=== PATIENT | male | born 1945 | race Caucasian/White ===

== ENCOUNTER 2016-08-24 02:11 | Inpatient (IN) | payer MEDICARE ==
--- NOTE | ~2016-08-24 | CR7 ---
[facility] A Service of [facility] & [facility] RADIOLOGY TEXT RESULTS PATIENT: KINA LAUGHLIN LOCATION: [address] : [birth year] UNIT #: [id number] AGE: [address]: Rolando Dawkins MD SEX: M ORDER DR: [id number] [facility] [address] [facility]. [place], [place] [address] [id number] I MR#: [id number] Acc #: [id number] NAME: KINA LAUGHLIN : 1945 SEX: M STUDY DATE/TIME: 09/17/2016 5:42 UNIT: [facility] ROOM: [facility] STUDY DESCRIPTION: CR Abdomen Single AP View Attending Physician: Rolando Dawkins M.D. Ordering Physician: Rolando Dawkins M.D. Primary Care Physician: Primary Care Physician No MEDICAL IMAGING REPORT This report is preliminary unless electronic signature is present EXAM Portable abdomen INDICATIONS Dobbhoff tube placement. IMPRESSION This portable view of the abdomen shows the tip of the Dobbhoff tube is below the left hemidiaphragm and is therefore in the stomach. This film was labeled 05:42 a.m. On the chest x-ray labeled 5:41 a.m. the tube was abnormally positioned with a bend in the distal tube and the tip was in the distal esophagus but on this image it has flipped itself down into the stomach. Dictated by... Bridger Carter M.D. THIS IS AN ELECTRONICALLY VERIFIED REPORT Bridger Carter M.D. at 09/17/2016 3:54 PM LORA/michael TD: 09/17/2016 13:19 JOB #: [id number] MEDICAL IMAGING REPORT Page 1 of 1 COPY
--- NOTE | ~2016-08-24 | CR72 ---
[facility] A Service of [facility] & [facility] RADIOLOGY TEXT RESULTS PATIENT: KINA LAUGHLIN LOCATION: [facility] 312-01 : [birth year] UNIT #: [id number] AGE: [address]: Rolando Dawkins MD SEX: M ORDER DR: [id number] [facility] [address] [facility]. [place], [place] [address] [id number] I MR#: [id number] Acc #: [id number] NAME: KINA LAUGHLIN : 1945 SEX: M STUDY DATE/TIME: 08/27/2016 5:51 UNIT: A U ROOM: [facility] STUDY DESCRIPTION: CR Chest Single View Portable Attending Physician: Rolando Dawkins M.D. Ordering Physician: Rolando Dawkins M.D. Primary Care Physician: Primary Care Physician No MEDICAL IMAGING REPORT This report is preliminary unless electronic signature is present EXAM Portable chest HISTORY Followup right sided pneumothorax and chest tube, shortness of air. COMPARISON 08/26/2016 FINDINGS Single large bore chest tube directed towards the right lung apex. Continued right-sided pneumothorax with predominately subpulmonic and lower lung pneumothorax not significantly changed from earlier study. Continued subcutaneous emphysema which may be increased from the 08/26 study. The left lung remains clear. Heart and mediastinum unremarkable. Dictated by... Lucius Mcmanus M.D. THIS IS AN ELECTRONICALLY VERIFIED REPORT Lucius Mcmanus M.D. at 08/27/2016 3:31 PM Thomas TD: 08/27/2016 08:12 JOB #: [id number] MEDICAL IMAGING REPORT Page 1 of 1 COPY
--- NOTE | ~2016-08-24 | CR72 ---
[facility] A Service of [facility] & [facility] RADIOLOGY TEXT RESULTS PATIENT: KINA LAUGHLIN LOCATION: [address]14 : [birth year] UNIT #: [id number] AGE: [address]: Rolando Dawkins MD SEX: M ORDER DR: [id number] [facility] [address] [facility]. [place], [place] [address] [id number] I MR#: [id number] Acc #: [id number] NAME: KINA LAUGHLIN : 1945 SEX: M STUDY DATE/TIME: 09/11/2016 15:21 UNIT: [facility] ROOM: [facility] STUDY DESCRIPTION: CR Chest Single View Portable Attending Physician: Rolando Dawkins M.D. Ordering Physician: Raymundo Chaudhry M.D. Primary Care Physician: No Primary Care Physician MEDICAL IMAGING REPORT This report is preliminary unless electronic signature is present EXAM Portable chest INDICATIONS Chest tube insertion pneumothorax Compared with earlier today. FINDINGS Interval insertion of a second right-sided chest tube. The right pneumothorax is now significantly smaller with very minimal apical and basilar components. There has been no other change. IMPRESSION Insertion of a second right-sided chest tube with significant interval decrease in size of right-sided pneumothorax. Dictated by... Nael Mcmanus M.D. THIS IS AN ELECTRONICALLY VERIFIED REPORT Nael Mcmanus M.D. at 09/12/2016 7:15 AM CHARMAINE/hardik TD: 09/11/2016 22:54 JOB #: [id number] MEDICAL IMAGING REPORT Page 1 of 1 COPY
--- NOTE | ~2016-08-24 | CR71 ---
[facility] A Service of [facility] RADIOLOGY TEXT RESULTS PATIENT: KINA LAUGHLIN LOCATION: [address]14 : [birth year] UNIT #: [id number] AGE: [address]: Rolando Dawkins MD SEX: M ORDER DR: [id number] [facility] [address] [facility]. [place], [place] [address] [id number] I MR#: [id number] Acc #: [id number] NAME: KINA LAUGHLIN : 1945 SEX: M STUDY DATE/TIME: 09/17/2016 5:41 UNIT: [facility] ROOM: [facility] STUDY DESCRIPTION: CR Chest Single View Attending Physician: Rolando Dawkins M.D. Ordering Physician: Bryant Wyatt M.D. Primary Care Physician: Primary Care Physician No MEDICAL IMAGING REPORT This report is preliminary unless electronic signature is present EXAM Portable chest INDICATION Follow up chest tube and pneumothorax. FINDINGS Today's portable view of the chest again shows right-sided chest tube with a pneumothorax surrounding right lung and causing volume loss of the right lung. The appearance is unchanged from the prior study. The pneumothorax appears to have a medial component as well as a basilar component. There are actually 2 chest tubes present. The left lung is clear. The heart size is normal. The Dobbhoff tube is bent back upon itself at the GE juncture. IMPRESSION 1. No change in 2 right chest tubes. There is still a right-sided pneumothorax that appears to completely surround the right lung which is decreased in volume. It is unchanged from yesterday's study. 2. The Dobbhoff tube is not in good position. It is bent back upon itself at about the GE juncture. The tip probably lies in the distal esophagus. Dictated by... Bridger Carter M.D. THIS IS AN ELECTRONICALLY VERIFIED REPORT Bridger Carter M.D. at 09/17/2016 3:54 PM FEL/mjs [facility] A Service of [facility] RADIOLOGY TEXT RESULTS PATIENT: KINA LAUGHLIN LOCATION: [facility]3-14 : [birth year] UNIT #: [id number] AGE: [address]: Rolando Dawkins MD SEX: M ORDER DR: TD: 09/17/2016 13:27 JOB #: [id number] MEDICAL IMAGING REPORT Page 1 of 1 COPY
--- NOTE | ~2016-08-24 | FU ---
[facility] Nutrition Therapy DATE: 09/04/16 Patient: KINA LAUGHLIN Physician: JOSH Address: [address] Room/Bed: [address], Zip: [place] [address] Admit Date: 08/24/16 Date of : [birth year] Height: 5 7 Weight: 144 65.5 NUTRITION MONITORING/FOLLOW-UP: Reason: Nutrition follow up Anthropometrics: Wt 09/04: 65.5 kg Labs: Gluc 142 BUN 25 Ca++ 8.3 Meds: Pepcid, solu-medrol I&O's: , last BM 09/04 (per RN and pt report) Skin: no changes noted Edema: none noted Estimated Nutrition Needs: [id number] kcals (28-32 kcals/kg adm wt) 69-86 grams protein (1.2-1.5 grams/kg adm wt) Assessment: Chart reviewed, events noted. Pt remains in the ICU and self-extubated yesterday per RN report. Pt continues to receive enteral nutrition with Jevity 1.5 @ 40 mL/hr + 30 mL Prostat daily. Pt had CAT OPERATOR evaluation this AM. RD spoke with CAT OPERATOR who recommended mechanical soft/ NDD2 diet with thin liquids. CAT OPERATOR does not expect the pt to consume adequate nutrition PO due to respiratory status and lack of appetite. RD spoke with the pt and his family members at bedside. Pt is agreeable to Ensure chocolate for supplemental nutrition, as family reports that he has consumed Boost in the past. RD informed RN of the pt's supplement needs, will order once advances diet. Sitter in room and RN report that the pt did have a BM this AM, which was his first BM since 08/22. Please see updated nutrition Dx. Dx: 1) Inadequate oral intake RT clinical condition AEB NPO, CAT OPERATOR evaluation- ACTIVE 2) Altered GI function RT clinical condition AEB no BM x 9 days, abdominal distension- RESOLVED (BM TODAY) Intervention: 1. CAT OPERATOR 2. Advance diet as tolerated 3. Continue EN until oral intake increases to 50% of meals Monitoring, Evaluation and Goals: [facility] Nutrition Therapy DATE: 09/04/16 Patient: KINA LAUGHLIN Physician: JOSH Address: [address] Room/Bed: [address], Zip: [place] [address] Admit Date: 08/24/16 Date of : [birth year] Height: 5 7 Weight: 144 65.5 1. EN to provide >80% goal volume x 24 hrs- MET 2. Lytes WNL- MET 3. Promote regular BMs- IN PROGRESS 4. Maintain weight status- IN PROGRESS 5. Advance diet per CAT OPERATOR recs- NEW 6. Consume and tolerate >50% of meals- NEW Recommendations: 1. Since the pt is no longer receiving Propofol, increase Jevity 1.5 to goal of 50 mL/hr and discontinue Prostat. Jevity 1.5 @ 50 mL/hr will provide: 1800 kcals/ 77 grams protein/ 912 mL free H20 2. Advance diet per CAT OPERATOR recommendations + Ensure chocolate BID for supplemental nutrition. 3. Once the pt is consuming >50% of meals, discontinue enteral nutrition. Status: Pt is at mild-moderate nutritional risk. Respectfully, BECK MEDINA RD, LD [employer] and Nutritional Services [facility] [place] [facility] cc: client file
--- NOTE | ~2016-08-24 | HP ---
Unit #: [id number] #: [id number] Patient: KINA LAUGHLIN [id number] [address] [address] [id number] I MR#: [id number] NAME: KINA LAUGHLIN ROOM: [facility] Age: 71 Sex: M Admission Date: 08/24/2016 : 1945 Attending Physician: Rolando Dawkins M.D. Primary Care Physician: Primary Care Physician No HISTORY AND PHYSICAL REASON FOR ADMISSION Acute exacerbation of COPD with spontaneous pneumothorax. HISTORY OF PRESENT ILLNESS This is a 71-year-old male with known history of COPD and continued tobacco abuse, who presented with sudden onset of right-sided chest pain and shortness of breath. He was found to have a pneumothorax. Chest tube was placed. Since chest tube was placed, his breathing is better but he is still having a lot of chest discomfort and chest tightness especially on the right with deep respirations. He denies any fever, chills, nausea or vomiting. He does have chronic low back pain and is on chronic pain pills for this at home. He has been weaning himself off cigarettes. He normally smoked 1 to 1-1/2 packs but has cut down to . He has a greater than 49-djdj-jvlf history of tobacco abuse. PAST MEDICAL HISTORY 1. COPD. 2. Depression. 3. Chronic low back pain. 4. Tobacco abuse. PAST SURGICAL HISTORY None. HOME MEDICATIONS Normally, he is on: 1. Lexapro. 2. Symbicort. 3. Spiriva. 4. ProAir. 5. Brigantine. ALLERGIES None. SOCIAL HISTORY Positive tobacco, 1-1/2 packs per day for over 50 years. He denies illicit drug use. He denies alcohol abuse. He has no recent travel history. He has had the flu and pneumonia vaccine. FAMILY HISTORY COPD. REVIEW OF SYSTEMS Unit #: [id number] #: [id number] Patient: KINA LAUGHLIN A complete review of systems was performed pertinent positives are included in chief complaint. PHYSICAL EXAMINATION VITAL SIGNS: Stable. He is afebrile. GENERAL: The patient is alert and oriented x3. Appears in only mild pain. HEENT: Eyes PERRLA. Extraocular movements are intact. Sclerae clear. Nose patent and symmetric without rhinitis. Throat without erythema or exudate. Tongue size is normal. NECK: Without JVD, carotid bruits or thyromegaly. LYMPH NODES: Without submandibular, anterior cervical, supraclavicular adenopathy. LUNGS: Markedly diminished bilaterally. No crackles, wheeze, or rhonchi. There is no egophony or dullness to percussion. HEART: Regular rate and rhythm without murmur appreciated. No thrills palpated. ABDOMEN: Soft, nontender. EXTREMITIES: Without clubbing, cyanosis, or edema. SKIN: Warm, dry and intact without unusual lesions. Multiple tattoos. DIAGNOSTIC STUDIES LABORATORY: Laboratory studies reviewed by me. IMAGING: Chest x-ray reviewed by me. IMPRESSION 1. Acute exacerbation of chronic obstructive pulmonary disease secondary to spontaneous right pneumothorax and continued tobacco abuse. 2. Chronic low back pain. 3. Depression. 4. History of hypertension. RECOMMENDATIONS 1. Will change chest tube to water seal. 2. Add bronchodilators. 3. Increase pain control. 4. Discussed with patient at length his need to discontinue tobacco and offered help. 5. Hold Norvasc at this time as patient is not hypertensive. 6. Outpatient low dose screening CT for lung cancer. Dictated by Arvind Marcus/tiffany TD: 08/24/2016 16:49 JOB #: [id number] Unit #: [id number] #: [id number] Patient: KINA LAUGHLIN HISTORY AND PHYSICAL Page 1 of 1 X Rula Larkin DO X HISTORY AND PHYSICAL
--- NOTE | ~2016-08-24 | CR72 ---
[facility] A Service of [facility] & [facility] RADIOLOGY TEXT RESULTS PATIENT: KINA LAUGHLIN LOCATION: [address]14 : [birth year] UNIT #: [id number] AGE: [address]: Rolando Dawkins MD SEX: M ORDER DR: [id number] [facility] [address] [facility]. [place], [place] [address] [id number] I MR#: [id number] Acc #: [id number] NAME: KINA LAUGHLIN : 1945 SEX: M STUDY DATE/TIME: 08/28/2016 11:02 UNIT: [facility] ROOM: [facility] STUDY DESCRIPTION: CR Chest Single View Portable Attending Physician: Rolando Dawkins M.D. Ordering Physician: Raymundo Chaudhry M.D. Primary Care Physician: Primary Care Physician No MEDICAL IMAGING REPORT This report is preliminary unless electronic signature is present EXAM AP portable chest HISTORY Follow up of pneumothorax. FINDINGS AP view of the chest obtained again showing extensive subcutaneous emphysema. ET tube and nasoenteric tube are in appropriate position. Right-sided pleural drain is in position and the right lung has re-expanded to fill the right pleural space. Cardiac size is normal. CONCLUSION Reexpansion of the right lung filling the right pleural space with no definite pneumothorax. Continued extensive subcutaneous emphysema. ET tube and nasoenteric tube in appropriate position. Dictated by... Kael Cosme M.D. THIS IS AN ELECTRONICALLY VERIFIED REPORT Kael Cosme M.D. at 08/29/2016 7:25 AM Chetan TD: 08/28/2016 11:41 JOB #: [id number] MEDICAL IMAGING REPORT Page 1 of 1 COPY
--- NOTE | ~2016-08-24 | CR72 ---
[facility] A Service of [facility] & [facility] RADIOLOGY TEXT RESULTS PATIENT: KINA LAUGHLIN LOCATION: [address]14 : [birth year] UNIT #: [id number] AGE: [address]: Rolando Dawkins MD SEX: M ORDER DR: [id number] [facility] [address] [facility]. [place], [place] [address] [id number] I MR#: [id number] Acc #: [id number] NAME: KINA LAUGHLIN : 1945 SEX: M STUDY DATE/TIME: 08/31/2016 5:00 UNIT: [facility] ROOM: [facility] STUDY DESCRIPTION: CR Chest Single View Portable Attending Physician: Rolando Dawkins M.D. Ordering Physician: rByant Wyatt M.D. Primary Care Physician: No Primary Care Physician MEDICAL IMAGING REPORT This report is preliminary unless electronic signature is present EXAM Single view chest. INDICATION Shortness of air. Respiratory failure. FINDINGS Single, portable, AP view of the chest compared to 08/30/2016. Endotracheal tube and enteric tube remain in place. Heart and mediastinal contours are unchanged. There is some right imf-ng-pmwkb lung airspace opacity. Patient has a right-sided chest tube. No pneumothorax. There is a large volume of subcutaneous emphysema. IMPRESSION No interval change. Dictated by... Fabrice Foley M.D. THIS IS AN ELECTRONICALLY VERIFIED REPORT Fabrice Foley M.D. at 08/31/2016 11:15 PM MARCIO/jenny TD: 08/31/2016 09:23 JOB #: [id number] MEDICAL IMAGING REPORT Page 1 of 1 COPY
--- NOTE | ~2016-08-24 | CR72 ---
[facility] A Service of [facility] & [facility] RADIOLOGY TEXT RESULTS PATIENT: KINA LAUGHLIN LOCATION: [address]14 : [birth year] UNIT #: [id number] AGE: [address]: Rolando Dawkins MD SEX: M ORDER DR: [id number] [facility] [address] [facility]. [place], [place] [address] [id number] I MR#: [id number] Acc #: [id number] NAME: KINA LAUGHLIN : 1945 SEX: M STUDY DATE/TIME: 09/11/2016 4:44 UNIT: [facility] ROOM: [facility] STUDY DESCRIPTION: CR Chest Single View Portable Attending Physician: Rolando Dawkins M.D. Ordering Physician: Raymundo Chaudhry M.D. Primary Care Physician: Primary Care Physician No MEDICAL IMAGING REPORT This report is preliminary unless electronic signature is present EXAM Portable chest INDICATION Chest tube followup PROCEDURE Frontal view chest COMPARISON 09/10/2016 FINDINGS Right-sided chest tube is in place. The patient's right-sided pneumothorax is significantly larger than on the prior. It measures approximately 3.6 cm in width at the right upper lung zone. IMPRESSION Interval increase in size of the right-sided pneumothorax. Findings were relayed to the patient's nurse at the time of this dictation. Dictated by... Adama Gil M.D. THIS IS AN ELECTRONICALLY VERIFIED REPORT Adama Gil M.D. at 09/11/2016 10:13 PM NILDA/levi TD: 09/11/2016 10:08 JOB #: [id number] MEDICAL IMAGING REPORT Page 1 of 1 COPY
--- NOTE | ~2016-08-24 | CR72 ---
[facility] A Service of [facility] & [facility] RADIOLOGY TEXT RESULTS PATIENT: KINA LAUGHLIN LOCATION: [address]05[address]16 : [birth year] UNIT #: [id number] AGE: [address]: Rolando Dawkins MD SEX: M ORDER DR: [id number] [place] [address] [facility]. [place], [place] [address] [id number] I MR#: [id number] Acc #: [id number] NAME: KINA LAUGHLIN : 1945 SEX: M STUDY DATE/TIME: UNIT: [facility] ROOM: [facility] STUDY DESCRIPTION: CR Chest Single View Portable Attending Physician: Rolando Dawkins M.D. Ordering Physician: Emily Garcia M.D. Primary Care Physician: Primary Care Physician No MEDICAL IMAGING REPORT This report is preliminary unless electronic signature is present EXAM Portable chest 09/20/2016 at 07:30hr HISTORY Right pneothorax today. F/U chest tube placement. FINDINGS Portable upright chest demonstrates stable right chest tube with tip in right mid hemithorax. There is persistent large right pneumothorax which has decreased in size from the earlier film today. There is no suggestion of tension currently. There is atelectasis at the right base. IMPRESSION 1. Right chest tube with tip in the mid right hemithorax with slight decrease in the large right pneumothorax. There is no evidence of tension at this time which suggests an improvement from earlier today. 2. No change in the left hemithorax. STAT * RESULT Dictated by... Cintia Wiggins M.D. AYO/levi TD: 09/20/2016 11:02 JOB #: [id number] MEDICAL IMAGING REPORT Page 1 of 1
--- NOTE | ~2016-08-24 | CR72 ---
[facility] A Service of [facility] RADIOLOGY TEXT RESULTS PATIENT: KINA LAUGHLIN LOCATION: [address] : [birth year] UNIT #: [id number] AGE: [address]: Rolando Dawkins MD SEX: M ORDER DR: [id number] [facility] [address] [facility]. [place], [place] [address] [id number] I MR#: [id number] Acc #: [id number] NAME: KINA LAUGHLIN : 1945 SEX: M STUDY DATE/TIME: 09/10/2016 12:10 UNIT: [facility] ROOM: [facility] STUDY DESCRIPTION: CR Chest Single View Portable Attending Physician: Rolando Dawkins M.D. Ordering Physician: Bryant Wyatt M.D. Primary Care Physician: No Primary Care Physician MEDICAL IMAGING REPORT This report is preliminary unless electronic signature is present EXAM Portable chest, 09/10/2016, 1210 hours. CLINICAL HISTORY 71-year-old man with a 2-week history of respiratory failure, shortness of air, and chest tube. COMPARISON 09/09/2016 FINDINGS Portable upright chest demonstrates stable flexible feeding tube and right chest tube. Normal heart size with tortuous aorta. There is a persistent right basilar pneumothorax which is smaller than on 09/09/2016. A very tiny apical component is seen. IMPRESSION Stable right chest tube with decreasing right basilar pneumothorax and very tiny stable apical component. The lungs are clear. Flexible feeding tube is unchanged. Dictated by... Cintia Wiggins M.D. THIS IS AN ELECTRONICALLY VERIFIED REPORT Cintia Wiggins M.D. at 09/10/2016 2:30 PM NINAM/jenny TD: 09/10/2016 14:11 JOB #: [id number] [facility] A Service of [facility] & [facility] RADIOLOGY TEXT RESULTS PATIENT: KINA LAUGHLIN LOCATION: [facility] : [birth year] UNIT #: [id number] AGE: [address]: Rolando Dawkins MD SEX: M ORDER DR: MEDICAL IMAGING REPORT Page 1 of 1 COPY
--- NOTE | ~2016-08-24 | CR72 ---
[facility] A Service of [facility] & [facility] RADIOLOGY TEXT RESULTS PATIENT: KINA LAUGHLIN LOCATION: [address]14 : [birth year] UNIT #: [id number] AGE: [address]: Rolando Dawkins MD SEX: M ORDER DR: [id number] [facility] [address] [facility]. [place], [place] [address] [id number] I MR#: [id number] Acc #: [id number] NAME: KINA LAUGHLIN : 1945 SEX: M STUDY DATE/TIME: 08/28/2016 13:04 UNIT: [facility] ROOM: [facility] STUDY DESCRIPTION: CR Chest Single View Portable Attending Physician: Rolando Dawkins M.D. Ordering Physician: Rolando Dawkins M.D. Primary Care Physician: Primary Care Physician No MEDICAL IMAGING REPORT This report is preliminary unless electronic signature is present EXAM Portable chest. HISTORY Chest tube change. FINDINGS An AP view is obtained and a previous chest tube has been removed and replaced with a new right side chest tube. There continues to be bilateral extensive subcutaneous emphysema. No obvious pneumothorax is seen on the current study. Cardiac size is stable. ET tube in good position. CONCLUSION Replacement of the right pleural drain. No obvious pneumothorax on the current study. Dictated by... Kael Cosme M.D. THIS IS AN ELECTRONICALLY VERIFIED REPORT Kael Cosme M.D. at 08/29/2016 7:26 AM Chetan TD: 08/28/2016 13:47 JOB #: [id number] MEDICAL IMAGING REPORT Page 1 of 1 COPY
--- NOTE | ~2016-08-24 | CR7 ---
[facility] A Service of [facility] & [facility] RADIOLOGY TEXT RESULTS PATIENT: KINA LAUGHLIN LOCATION: [address]14 : [birth year] UNIT #: [id number] AGE: [address]: Rolando Dawkins MD SEX: M ORDER DR: [id number] [facility] [address] [facility]. [place], [place] [address] [id number] I MR#: [id number] Acc #: [id number] NAME: KINA LAUGHLIN : 1945 SEX: M STUDY DATE/TIME: 09/06/2016 13:30 UNIT: [facility] ROOM: [facility] STUDY DESCRIPTION: CR Abdomen Single AP View Attending Physician: Rolando Dawkins M.D. Ordering Physician: Bryant Wyatt M.D. Primary Care Physician: No Primary Care Physician MEDICAL IMAGING REPORT This report is preliminary unless electronic signature is present EXAM Portable abdomen HISTORY Feeding tube placement today. FINDINGS Portable radiograph of the abdomen for feeding tube placement demonstrates the feeding tube tip is at the level of the gastric fundus in the superior left upper quadrant 8 cm beyond the EG junction. The visualized bowel gas pattern is normal. Exam does not include the lower pelvis. Dictated by... Mo Caldwell M.D. THIS IS AN ELECTRONICALLY VERIFIED REPORT Mo Caldwell M.D. at 09/06/2016 10:38 PM YONATHAN/jennifer TD: 09/06/2016 16:14 JOB #: [id number] MEDICAL IMAGING REPORT Page 1 of 1 COPY
--- NOTE | ~2016-08-24 | CO ---
Unit #: [id number] #: [id number] Patient: KINA LEON [id number] [facility] [address] [facility]. [place], [place] [address] [id number] I MR#: [id number] NAME: KINA LEON ROOM: CIC2 Age: 71 Sex: M Admission Date: 08/24/2016 : 1945 Attending Physician: Rolando Dawkins M.D. Primary Care Physician: No Primary Care Physician Consultation Date: 09/21/2016 CONSULTATION REPORT REASON FOR CONSULTATION Followup. DISCUSSION Mr. Kina Leon is a 71-year-old male seen in CCU, bed 2 on September 21, 2016 at [facility]. Patient has a chest tube, breathing through nasal cannula, dressed in hospital attire, lying comfortably in bed, pleasant, cooperative. Speech was somewhat circumstantial but no agitation, some confusion. Denied any problems with his behavior yesterday. Patient's family was at the bedside, reports still having problems with confusion but better. Tolerating medication fairly well. Denied any suicidal or homicidal ideation. Denied any psychotic symptoms. Patient's vital signs: Pulse 89, respirations 26, blood pressure 119/84, oxygen saturation 98%. REVIEW OF SYSTEMS Complete review of systems is unremarkable. MENTAL STATUS EXAMINATION General appearance: Patient dressed in hospital attire, lying comfortably in bed. Patient has nasal cannula. Attention span and concentration fair. Speech somewhat circumstantial. Orientation in place and person. Mood and affect labile. Thought process circumstantial. Thought content guarded, paranoid but denied any thoughts of harming self or others. Recent and remote memory fair to poor. Language fair. Fund of knowledge fair. Insight and judgment fair to slightly impaired. DIAGNOSES PSYCHIATRIC: Major neurocognitive disorder secondary to Alzheimer disease with behavioral disturbances, F02.81. Mood disorder, not otherwise specified, F32.9. ASSESSMENT AND PLAN 1. Supportive psychotherapy and psychoeducation provided to patient. 2. Educated about benefits and side effects of medications and course and prognosis of illness. 3. Advised to continue with the current treatment. If needed, consider further adjustment of medications. Please feel free to call if any questions, . Unit #: [id number] #: [id number] Patient: KINA LEON Dictated by... Dse Sequeira/steven TD: 09/25/2016 10:15 JOB #: [id number] CONSULTATION REPORT Page 1 of 1 X Maurilio Hickey MD CONSULTATION REPORT
--- NOTE | ~2016-08-24 | A ---
[facility] Nutrition Therapy DATE: 08/28/16 Patient: KINA LAUGHLIN Physician: JOSH Address: [address] Room/Bed: [address], Zip: [place] [address] Admit Date: 08/24/16 Date of : [birth year] Height: 5 7 Weight: 121 55 NUTRITIONAL ASSESSMENT: REASON: Intubated in the ICU 71 yo male admitted for acute COPD exacerbation with pneumothorax s/p chest tube PMH: COPD, HTN, depression, chronic low back pain Anthropometrics: Ht: 67" Wt: 57.1 kg BMI: 19.7 IBW: 67.3 kg, 85% IBW Labs: Gluc 187 BUN 25 Meds: Pepcid (IV), propofol @ 10.8 mL/hr, NaCl I/O & Bowel function: 793/1071, last BM 08/22 Skin Integrity: Chest tube right chest Bruising BUE Scab LLE Edema: none noted Estimated Nutrition Needs: 8074-5140 kcals (28-32 kcals/kg) 69-86 grams protein (1.2-1.5 grams/kg) Assessment: Chart reviewed, events noted. Pt was transfered from after rapid respone, now intubated and sedated in the ICU. Propofol is currently providing an additional 285 kcals from lipids at this time. No family in room to discuss the pt's nutritional history. Pt was previously ordered a regular diet upon admission. Per RN report, the pt is s/p chest tube placement and may need to go back to surgery, as his chest tube seems to be leaking air. RN is going to place [facility], and MD wrote orders for enteral nutrition with Jevity 1.5. RD will provide recommendations below. Dx: 1) Inadequate protein-energy intake RT clinical condition AEB intubated, NPO. 2) Underweight RT likely PMH, COPD AEB 85% IBW. Intervention: 1. Enteral nutrition once medically feasible Monitoring, Evaluation and Goals: 1. Enteral nutrition; initiate, provide >80% goal volume x 24 hrs [facility] Nutrition Therapy DATE: 08/28/16 Patient: KINA LAUGHLIN Physician: JOSH Address: [address] [place] [address] DRIVE Room/Bed: [address], Zip: [place] [address] Admit Date: 08/24/16 Date of : [birth year] Height: 5 7 Weight: 121 55 2. Improve labs; glucose, BUN 3. GI; promote regular GI function 4. Weight; prevent weight loss, promote gradual weight gain towards IBW Recommendations: 1. Once medically feasible, recommend initiating enteral nutrition with Jevity 1.5 @ 20 mL/hr. Increase by 10 mL q 8 hrs as tolerated to indicated goal below: WHILE THE PT IS RECEIVING PROPOFOL: -Increase Jevity 1.5 to 40 mL/hr + 30 mL Prostat once daily to provide: 1825 kcals/ 76 grams protein/ 730 mL free H20 WHEN PROPOFOL IS DISCONTINUED: -Discontinue Prostat -Increase Jevity 1.5 to 50 mL/hr to provide: 1800 kcals/ 77 grams protein/ 912 mL free H20 2. If the pt is extubated, recommend BUFFER NICKEL evaluation. If the pt's diet is advanced, recommend high protein/ high calorie diet with 6 small meals. Pt is at moderate-severe nutritional risk. RD will follow hospital course per protocol. Respectfully, BECK MEDINA RD, LD Food and Nutritional Services [facility] cc: client file
--- NOTE | ~2016-08-24 | CR72 ---
[facility] A Service of [facility] RADIOLOGY TEXT RESULTS PATIENT: KINA LAUGHLIN LOCATION: [facility] 312-01 : [birth year] UNIT #: [id number] AGE: [address]: Rolando Dawkins MD SEX: M ORDER DR: [id number] [facility] [address] [place], [place] [address] [id number] I MR#: [id number] Acc #: [id number] NAME: KINA LAUGHLIN : 1945 SEX: M STUDY DATE/TIME: 08/24/2016 18:03 UNIT: A U ROOM: [facility] STUDY DESCRIPTION: CR Chest Single View Portable Attending Physician: Rolando Dawkins M.D. Ordering Physician: Rolando Dawkins M.D. Primary Care Physician: Primary Care Physician No MEDICAL IMAGING REPORT This report is preliminary unless electronic signature is present EXAM Portable chest x-ray HISTORY Short of air, cough, right-sided pneumothorax. Right-sided chest tube. COMMENT Single frontal portable view of the chest timed 18:03 08/24/2016 compared to an earlier film today. There is a right side chest tube. There is some right-sided subcutaneous air. No definite right-sided pneumothorax but the subcutaneous air is increasing. There is evidence for underlying chronic disease of the lungs with emphysematous changes and parenchymal scarring, especially in the left upper lobe. Patchy airspace disease at the right base could be atelectasis or early pneumonia. 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 Heart size is normal. No congestive failure. No pleural effusion. IMPRESSION 1. Right-side chest tube but no definite pneumothorax. There is however increasing right-sided subcutaneous air. 2. Underlying chronic lung disease. 3. Patchy airspace disease at the right base more apparent than on prior could be some atelectasis, aspiration or early pneumonia. Follow up recommended. 4. Ectasia of the thoracic aorta. Dictated by... Yen Arechiga M.D. THIS IS AN ELECTRONICALLY VERIFIED REPORT [facility] A Service of [facility] RADIOLOGY TEXT RESULTS PATIENT: KINA LAUGHLIN LOCATION: A 312-01 : [birth year] UNIT #: [id number] AGE: [address]: Rolando Dawkins MD SEX: M ORDER DR: Yen Arechiga M.D. at 08/25/2016 1:44 PM MINNIE/lulu TD: 08/25/2016 09:05 JOB #: [id number] MEDICAL IMAGING REPORT Page 1 of 1 COPY
--- NOTE | ~2016-08-24 | CO ---
Unit #: [id number] #: [id number] Patient: KINA LEON [id number] [facility] [address] [place], [place] [address] [id number] I MR#: [id number] NAME: KINA LEON ROOM: CICCU2 Age: 71 Sex: M Admission Date: 08/24/2016 : 1945 Attending Physician: Rolando Dawkins M.D. Primary Care Physician: No Primary Care Physician Consultation Date: 09/19/2016 CONSULTATION REPORT REASON FOR CONSULTATION Followup. DISCUSSION Mr. Kina Leon is a 71-year-old white male seen in room 2, CCU 2 on September 19, 2016 at [facility]. Patient was dressed in hospital attire. The patient has chest tube, has IV, receiving oxygen. Mood was irritable, mad, angry, upset. Speech was somewhat circumstantial. Patient's sister and brother were in the same room. According to them, patient is somewhat more agitated this morning, although patient was able to sleep good, tolerating medication fairly well, currently on trazodone and Zyprexa. No side effects from medication. I subsequently asked to give one dose of Zyprexa 5 mg as now dose and ordered Zyprexa 5 mg q.6 hours p.r.n. for agitation. Patient was also somewhat confused but denied any thoughts of harming self or others. Patient's vital signs: Pulse 90, respirations 33, blood pressure 119/98, oxygen saturation 94%. MENTAL STATUS EXAMINATION General appearance: Patient dressed in hospital attire, lying in a proper position in ICU bed. Attention span and concentration poor. Speech rambling. Circumstantial. Oriented in place and person. Mood and affect labile. Thought process circumstantial. Thought content somewhat guarded, paranoid but denied any thoughts of harming self or others. Denied any hallucinations. Recent and remote memory fair to poor. Language intact. Fund of knowledge fair. Insight and judgment fair to slightly impaired. DIAGNOSES PSYCHIATRIC: Major neurocognitive disorder, secondary to Alzheimer disease with behavioral disturbances, F02.81. Mood disorder, not otherwise specified, F32.9. ASSESSMENT AND PLAN 1. Supportive psychotherapy and psychoeducation provided to patient. 2. Educated about benefits and side effects of medications and course and prognosis of illness. 3. Advised to continue with the current medications with the plan to add Zyprexa 5 mg q.6 hours p.r.n. for severe agitation if needed. Please feel free to call, . Unit #: [id number] #: [id number] Patient: KINA LEON Dictated by... Des Sequeira/steven TD: 09/19/2016 13:15 JOB #: [id number] CONSULTATION REPORT Page 1 of 1 X Maurilio Hickey MD X CONSULTATION REPORT
--- NOTE | ~2016-08-24 | CR72 ---
[facility] A Service of [facility] & [facility] RADIOLOGY TEXT RESULTS PATIENT: KINA LAUGHLIN LOCATION: [facility] 312- : [birth year] UNIT #: [id number] AGE: [address]: Rolando Dawkins MD SEX: M ORDER DR: [id number] [facility] [address] [facility]. [place], [place] [address] [id number] I MR#: [id number] Acc #: [id number] NAME: KINA LAUGHLIN : 1945 SEX: M STUDY DATE/TIME: 08/24/2016 11:50 UNIT: A U ROOM: [facility] STUDY DESCRIPTION: CR Chest Single View Portable Attending Physician: Rolando Dawkins M.D. Ordering Physician: Rula Larkin D.O. Primary Care Physician: No Primary Care Physician MEDICAL IMAGING REPORT This report is preliminary unless electronic signature is present EXAM Portable chest. INDICATIONS Follow up chest tube and pneumothorax. Shortness of breath. COMPARISON Comparison with earlier today. FINDINGS The right chest tube is stable. There is no appreciable pneumothorax. No new infiltrates. IMPRESSION Stable right chest tube. No appreciable pneumothorax. Dictated by... Nael Mcmanus M.D. THIS IS AN ELECTRONICALLY VERIFIED REPORT Nael Mcmanus M.D. at 08/25/2016 3:48 PM CHARMAINE/phillip TD: 08/24/2016 22:54 JOB #: [id number] MEDICAL IMAGING REPORT Page 1 of 1 COPY
--- NOTE | ~2016-08-24 | CR72 ---
[facility] A Service of [facility] & [facility] RADIOLOGY TEXT RESULTS PATIENT: KINA LAUGHLIN LOCATION: [address]16 : [birth year] UNIT #: [id number] AGE: [address]: Rolando Dawkins MD SEX: M ORDER DR: [id number] [facility] [address] [facility]. [place], [place] [address] [id number] I MR#: [id number] Acc #: [id number] NAME: KINA LAUGHLIN : 1945 SEX: M STUDY DATE/TIME: 09/18/2016 5:48 UNIT: [facility] ROOM: [facility] STUDY DESCRIPTION: CR Chest Single View Portable Attending Physician: Rolando Dawkins M.D. Ordering Physician: Raymundo Chaudhry M.D. Primary Care Physician: Primary Care Physician No MEDICAL IMAGING REPORT This report is preliminary unless electronic signature is present EXAM Portable chest, 09/18/2016 HISTORY 71-year-old male with shortness of air and pneumothorax for 25 days. COMPARISON Chest, 09/17/2016 FINDINGS Frontal chest demonstrates tubes and lines in stable position. Improved positioning of the weighted enteric feeding tube compared to prior study. There is residual right-sided pneumothorax which is unchanged. Patchy atelectasis/infiltrate noted throughout the right lung. Left lung clear. Heart size and mediastinum are stable. IMPRESSION 1. Interval improvement in positioning of the weighted enteric feeding tube. All other tubes and lines are stable. 2. No change in right-sided pneumothorax. Dictated by... Larry Waite M.D. THIS IS AN ELECTRONICALLY VERIFIED REPORT Larry Waite M.D. at 09/18/2016 3:23 PM Aziza TD: 09/18/2016 08:10 JOB #: [id number] MEDICAL IMAGING REPORT Page 1 of 1 COPY
--- NOTE | ~2016-08-24 | CR72 ---
[facility] A Service of [facility] & [facility] RADIOLOGY TEXT RESULTS PATIENT: KINA LAUGHLIN LOCATION: [address]05-16 : [birth year] UNIT #: [id number] AGE: [address]: Rolando Dawkins MD SEX: M ORDER DR: [id number] [facility] [address] [facility]. [place], [place] [address] [id number] I MR#: [id number] Acc #: [id number] NAME: KINA LAUGHLIN : 1945 SEX: M STUDY DATE/TIME: 09/22/2016 4:11 UNIT: [facility] ROOM: [facility] STUDY DESCRIPTION: CR Chest Single View Portable Attending Physician: Rolando Dawkins M.D. Ordering Physician: Leandro Pino M.D. Primary Care Physician: No Primary Care Physician MEDICAL IMAGING REPORT This report is preliminary unless electronic signature is present EXAM Portable chest, 09/22/16 HISTORY Followup right pneumothorax and right chest tube FINDINGS A portable view of the chest was obtained. A very small right-sided pneumothorax is still visible. It is improved from yesterday's study. The right chest tube is in good position. The left lung is clear. There is mild right base atelectasis. IMPRESSION Very tiny pneumothorax remains. The right chest tube is in good position. Otherwise, there has been no change. Dictated by... Bridger Carter M.D. THIS IS AN ELECTRONICALLY VERIFIED REPORT Bridger Carter M.D. at 09/22/2016 1:53 PM LORA/hardik TD: 09/22/2016 12:23 JOB #: [id number] MEDICAL IMAGING REPORT Page 1 of 1 COPY
--- NOTE | ~2016-08-24 | CO ---
Unit #: [id number] #: [id number] Patient: KINA LEON [id number] [facility] [address] [facility]. [place], [place] [address] [id number] I MR#: [id number] NAME: KINA LEON ROOM: CIC2 Age: 71 Sex: M Admission Date: 08/24/2016 : 1945 Attending Physician: Rolando Dawkins M.D. Primary Care Physician: Primary Care Physician No Consultation Date: 09/17/2016 CONSULTATION REPORT REASON FOR CONSULTATION Followup. DISCUSSION Mr. Kina Leon is a 71-year-old male, seen in room 14, CCU-3 at [facility]. The patient is compliant, cooperative, able to answer some of the questions appropriately. The patient's vital signs stable; temperature 98.5, pulse 92, respiratory rate 26, blood pressure 124/78, oxygen saturation 97%. The patient sister was at the bedside. The patient has 2 chest tubes on his left side. The patient compliant with medication, still having problem with memory and confusion. REVIEW OF SYSTEMS Complete review of system unremarkable. MENTAL STATUS EXAMINATION Attention span and concentration, poor. Speech, slow. Oriented in self and place. Mood and affect, labile. Thought process, circumstantial. Thought content, guarded. Recent and remote memory, poor. Language, intact. Fund of knowledge, fair. Insight and judgment, fair to slightly impaired. DIAGNOSIS Psychiatric: Major neurocognitive disorder due to Alzheimer disease with behavioral disturbances, F02.81. ASSESSMENT/PLAN 1. Supportive psychotherapy and psychoeducation provided to the patient. 2. Educated about benefits and side effects of medication and course and prognosis of illness. If needed, consider further adjustment of medication. Please feel free to call if any question, telephone #[phone]. Dictated by... Maurilio Hickey M.D. REED/elaine TD: 09/17/2016 23:12 JOB #: [id number] Unit #: [id number] #: [id number] Patient: KINA LEON CONSULTATION REPORT Page 1 of 1 X Maurilio Hickey MD CONSULTATION REPORT
--- NOTE | ~2016-08-24 | CR72 ---
[facility] A Service of [facility] & [facility] RADIOLOGY TEXT RESULTS PATIENT: KINA LAUGHLIN LOCATION: [address]14 : [birth year] UNIT #: [id number] AGE: [address]: Rolando Dawkins MD SEX: M ORDER DR: [id number] [facility] [address] [facility] [place], [place] [address] [id number] I MR#: [id number] Acc #: [id number] NAME: KINA LAUGHLIN : 1945 SEX: M STUDY DATE/TIME: 09/09/2016 5:43 UNIT: [facility] ROOM: [facility] STUDY DESCRIPTION: CR Chest Single View Portable Attending Physician: Rolando Dawkins M.D. Ordering Physician: Emily Garcia M.D. Primary Care Physician: No Primary Care Physician MEDICAL IMAGING REPORT This report is preliminary unless electronic signature is present EXAM Portable chest. INDICATIONS Respiratory failure. PROCEDURE Frontal view chest. COMPARIOSN 09/08/2016. FINDINGS Right-sided chest tube is stable. Persistent but improving right apical pneumothorax. No new dense consolidation. IMPRESSION Persistent but improving right apical pneumothorax. Dictated by... Adama Gil M.D. THIS IS AN ELECTRONICALLY VERIFIED REPORT Adama Gil M.D. at 09/10/2016 9:58 PM EED/gz TD: 09/09/2016 09:08 JOB #: [id number] MEDICAL IMAGING REPORT Page 1 of 1 COPY
--- NOTE | ~2016-08-24 | CR72 ---
[facility] A Service of [facility] & [facility] RADIOLOGY TEXT RESULTS PATIENT: KINA LAUGHLIN LOCATION: [address]3-14 : [birth year] UNIT #: [id number] AGE: [address]: Rolando Dawkins MD SEX: M ORDER DR: [id number] [facility] [address] [facility] [place] [facility]. [place], [place] [address] [id number] I MR#: [id number] Acc #: [id number] NAME: KINA LAUGHLIN : 1945 SEX: M STUDY DATE/TIME: 09/12/2016 5:38 UNIT: [facility] ROOM: [facility] STUDY DESCRIPTION: CR Chest Single View Portable Attending Physician: Rolando Dawkins M.D. Ordering Physician: Raymundo Chaudhry M.D. Primary Care Physician: Primary Care Physician No MEDICAL IMAGING REPORT This report is preliminary unless electronic signature is present EXAM Portable chest 09/12/2016 INDICATION Right pneumothorax. Chest tubes. FINDINGS AP portable chest compared with 09/11/2016. Cardiac and mediastinal contours are stable. There is emphysema. There are 2 right chest tubes. There is a tiny residual right apical pneumothorax. Bullous changes are noted at the left apex. Dictated by... Jez Henao Jr., M.D. THIS IS AN ELECTRONICALLY VERIFIED REPORT Jez Henao Jr., M.D. at 09/13/2016 6:06 AM TIMOTEO/lulu TD: 09/12/2016 10:46 JOB #: [id number] MEDICAL IMAGING REPORT Page 1 of 1 COPY
--- NOTE | ~2016-08-24 | CR72 ---
[facility] A Service of [facility] & [facility] RADIOLOGY TEXT RESULTS PATIENT: KINA LAUGHLIN LOCATION: [address]14 : [birth year] UNIT #: [id number] AGE: [address]: Rolando Dawkins MD SEX: M ORDER DR: [id number] [facility] [address] [place], [place] [address] [id number] I MR#: [id number] Acc #: [id number] NAME: KINA LAUGHLIN : 1945 SEX: M STUDY DATE/TIME: 09/05/2016 09:46 UNIT: [facility] ROOM: [facility] STUDY DESCRIPTION: CR Chest Single View Portable Attending Physician: Rolando Dawkins M.D. Ordering Physician: Bryant Wyatt M.D. Primary Care Physician: Primary Care Physician No MEDICAL IMAGING REPORT This report is preliminary unless electronic signature is present EXAM Chest portable, 09/05/2016 09:46 hours HISTORY 71-year-old man for followup of right-sided pneumothorax. Shortness of air since 08/24/2016. COMPARISON 09/05/2016 03:41 hours FINDINGS Single portable upright view of the chest demonstrates a stable flexible feeding tube with tip directed leftward in the proximal stomach. There is a right chest tube obliquely oriented in the mid right hemithorax. There is a moderately large right pneumothorax seen at both the apex and base clearly increased from earlier today. Apical component measures 2.4 cm where it previously measured 1.4 cm. Pneumothorax is newly visualized laterally with an increase in the basilar component as well. There is increased density in the right midlung likely atelectasis. Left lung is clear. Stable subcutaneous air over the left supraclavicular region. IMPRESSION Right chest tube remains in place but the right pneumothorax has increased significantly in size with increased atelectasis in the right mid lung. For example at the right apex, the pneumothorax measures 2.4 cm where it previously measured 1.4 cm. There is similar increase in the basilar component with new visualization of a lateral pneumothorax. STAT * RESULT [facility] A Service of [facility] & [facility] RADIOLOGY TEXT RESULTS PATIENT: KINA LAUGHLIN LOCATION: [facility] CICCU3-14 : [birth year] UNIT #: [id number] AGE: [address]: Rolando Dawkins MD SEX: M ORDER DR: Dictated by... Cintia Wiggins M.D. THIS IS AN ELECTRONICALLY VERIFIED REPORT Cintia Wiggins M.D. at 09/05/2016 2:35 PM AYO/levi TD: 09/05/2016 10:08 JOB #: [id number] MEDICAL IMAGING REPORT Page 1 of 1 COPY
--- NOTE | ~2016-08-24 | CR72 ---
[facility] A Service of [facility] RADIOLOGY TEXT RESULTS PATIENT: KINA LAUGHLIN LOCATION: [address] : [birth year] UNIT #: [id number] AGE: [address]: Rolando Dawkins MD SEX: M ORDER DR: [id number] [facility] [address] [facility]. [place], [place] [address] [id number] I MR#: [id number] Acc #: [id number] NAME: KINA LAUGHLIN : 1945 SEX: M STUDY DATE/TIME: 09/19/2016 1244 UNIT: [facility] ROOM: [facility] STUDY DESCRIPTION: CR Chest Single View Portable Attending Physician: Rolando Dawkins M.D. Ordering Physician: Alka Hilton A.P.R.N. Primary Care Physician: No Primary Care Physician MEDICAL IMAGING REPORT This report is preliminary unless electronic signature is present EXAM Chest portable 09/19/2016 1244 hours HISTORY Shortness of air since last night, follow up right chest tube and pneumothorax. COMPARISON 09/19/2016 0611 hours FINDINGS Portable upright chest demonstrates interval removal of 1 of the 2 right chest tubes with 1 remaining tube present. The right pneumothorax persists. It is stable to slightly decreased. The enteric tube is unchanged with tip in the expected location of GE junction. The tip may actually be in a hiatal hernia. The left lung is clear and there is no left effusion. IMPRESSION 1. Interval immobile of 1 of the 2 right chest tubes with 1 tube remaining. There is a persistent right pneumothorax which is stable to minimally decreased in size. 2. The left lung is clear and there is no left effusion. Dictated by... Cintia Wiggins M.D. THIS IS AN ELECTRONICALLY VERIFIED REPORT Cintia Wiggins M.D. at 09/19/2016 5:42 PM Andrew TD: 09/19/2016 16:13 JOB #: [id number] [facility] A Service of [facility] RADIOLOGY TEXT RESULTS PATIENT: KINA LAUGHLIN LOCATION: [facility]- : 46 UNIT #: [id number] AGE: [address]: Rolando Dawkins MD SEX: M ORDER DR: MEDICAL IMAGING REPORT Page 1 of 1 COPY
--- NOTE | ~2016-08-24 | CT57 ---
[facility] A Service of [facility] & [facility] RADIOLOGY TEXT RESULTS PATIENT: KINA LAUGHLIN LOCATION: C3A 312-01 : 46 UNIT #: [id number] AGE: [address]: Rolando Dawkins MD SEX: M ORDER DR: [id number] [facility] [address] [facility]. [place], [place] [address] [id number] I MR#: [id number] Acc #: [id number] NAME: KINA LAUGHLIN : 1945 SEX: M STUDY DATE/TIME: 08/26/2016 15:24 UNIT: C3A PCU ROOM: 312 STUDY DESCRIPTION: CT Chest Wo Cont Attending Physician: Rolando Dawkins M.D. Ordering Physician: Alka Hilton A.P.R.N. Primary Care Physician: Primary Care Physician No MEDICAL IMAGING REPORT This report is preliminary unless electronic signature is present EXAM CT chest, noncontrast, 08/26/2016 HISTORY 71-year-old male with recent admission through the ED on 08/24/2016, for right side pneumothorax with subsequent chest tube placement. Pneumothorax persists with chest tube in place, the patient complains of 2-day history of worsening shortness of air. History of pulmonary emphysema. TECHNIQUE CT examination of the chest was performed without IV contrast. This CT exam was performed with one or more of the following radiation dose reduction techniques: automatic exposure control, adjustment of mA and/or kV according to patient size, and iterative reconstruction. COMPARISON Chest x-rays 08/26/2016, 08/25/2016 and 08/24/2016 FINDINGS Right side chest tube appears well positioned with tip at the right lung apex. There is a moderate-sized right side pneumothorax, largest at the right lung base. Portions of the pneumothorax are exaggerated by large air-filled thin walled bullous airspaces in the right lower chest. There is consolidation and atelectasis in the posterior right lower lobe. The lungs are otherwise clear. Mediastinum is midline, and there is no pneumomediastinum or left side pneumothorax. Advanced pulmonary emphysema with extensive bullous changes, greatest in the upper lungs. Limited upper abdominal images are unremarkable. Soft tissue emphysema is present throughout the right chest wall. IMPRESSION 1. Well-positioned right side chest tube in place with a persistent STS. [facility] A Service of [facility] RADIOLOGY TEXT RESULTS PATIENT: KINA LAUGHLIN LOCATION: C3A 312-01 : 46 UNIT #: [id number] AGE: [address]: Rolando Dawkins MD SEX: M ORDER DR: moderate pneumothorax in the nondependent right anterior chest extending from apex to the lung base. Soft tissue emphysema throughout the right side chest wall. No pneumomediastinum or left side pneumothorax. 2. Advanced pulmonary emphysema with large bullous airspaces at the lung apices and in the right lower lung anteriorly. 3. Focal airspace consolidation in the dependent posterior right lung base. Left lung clear. Dictated by... Rolando Ambriz M.D. THIS IS AN ELECTRONICALLY VERIFIED REPORT Rolando Ambriz M.D. at 08/26/2016 10:37 PM RGW/jocelyn TD: 08/26/2016 21:35 JOB #: [id number] MEDICAL IMAGING REPORT Page 1 of 1 COPY
--- NOTE | ~2016-08-24 | FU ---
[facility] Nutrition Therapy DATE: 08/30/16 Patient: KINA LAUGHLIN Physician: JOSH Address: [address] Room/Bed: [address], Zip: [place] [address] Admit Date: 08/24/16 Date of : 46 Height: 5 7 Weight: 146 66.5 NUTRITION MONITORING/FOLLOW-UP: Reason: Enteral nutrition follow-up Admitting Dx: 71 y/o male admitted with acute COPD exacerbation, PNA, s/p dislodged chest tube Anthropometrics: Ht: 67", admission wt: 57.1 kg, current wt: 66.5 kg, BMI: 19.7 (normal; based on admission wt), 08/29 wt: 61.5 kg Labs: Glucose 116, Phos 2.4, Na/K WNL, Mg WNL on 08/29 Meds: IVF @ 100 ml/hr, Pepcid, Propofol @ 6.2 ml/hr (164 lipid kcals), Phos-nak packet BID I&O's: 4173/1255, last BM 08/22, abdomen distended Skin: R chest tube in place, bruising/scab/tattoos noted Estimated Nutrition Needs: 2223-2920 kcals per day (28-32 kcals/kg admission wt) 69-86 g protein per day (1.2-1.5 g/kg admission wt) Fluids consistent with kcal needs or per MD Assessment: Chart reviewed, events noted. Patient remains intubated and sedated with Propofol @ 6.2 ml/hr, currently providing 164 lipid kcals. Note weight increase, up to 61.5 kg yesterday and 66.5 kg today, no edema noted- will monitor. Patient has been tolerating EN with Jevity 1.5 @ 40 ml/hr (goal with Propofol) + 30 ml Prostat daily, which provides 1704 kcals and 76 g protein considering kcals from Propofol, which meets his estimated nutrition needs. Feeds have provided 98% goal volume x 24 hours per pump history. Abdominal distension noted, no BM x 8 days, not on a bowel regimen. 20 ml GRV noted. See nutrition goals, dx and recs as stated below. Will continue to follow. Dx: Inadequate protein energy intake r/t clinical condition AEB intubated, NPO - RESOLVED New nutrition diagnoses: 1) Inadequate oral intake r/t intubation AEB NPO, need for EN. 2) Altered GI function r/t clinical condition AEB no BM x 8 days, abdominal distension. Intervention: Replace Phos, start bowel regimen Monitoring, Evaluation and Goals: 1. EN to provide > 80% volume x 24 hours - MET [facility] Nutrition Therapy DATE: 08/30/16 Patient: KINA LAUGHLIN Physician: JOSH Address: [address] [place] [address] DRIVE Room/Bed: [address], Zip: [place] [address] Admit Date: 08/24/16 Date of : 46 Height: 5 7 Weight: 146 66.5 2. Improvement in labs (glucose, BUN) - MET 3. Promote regular GI function - NOT MET (no BM x 8 days, abdomen distended) 4. Gradual weight gain towards IBW - IN PROGRESS (note weight gain of 9.4 kg since admission) Revised goals; 1. EN to provide > 80% goal volume x 24 hours. 2. Lytes WNL. 3. Promote regular BM's, minimize abdominal distension. 4. Maintain weight status. Recommendations: 1. Replace Phos. 2. Suggest starting a bowel regimen to promote a BM, patient has not had a BM in 8 days and abdomen is distended. 3. Continue current enteral nutrition regimen while on Propofol: Jevity 1.5 @ 40 ml/hr + 30 ml Prostat daily. This nutrition regimen + kcals from Propofol (164 lipid kcals) will provide 1704 kcals, 76 g protein and 730 ml water. Consider adding free water flushes if the patient is not already receiving them; suggest 250 ml QID and hold liquid IVF. 4. If Propofol is D/C increase enteral feeds to new goal rate of 50 ml/hr and discontinue Prostat. This will provide 1800 kcals, 77 g protein and 912 ml water. 5. If extubated advance to least restrictive oral diet per [employer]. Status: Moderate nutrition risk Respectfully, Sunitha Abel, RD, LD [facility] Nutrition Therapy DATE: 08/30/16 Patient: KINA LAUGHLIN Physician: JOSH Address: [address] [place] [address] DRIVE Room/Bed: [address], Zip: [place] [address] Admit Date: 08/24/16 Date of : 46 Height: 5 7 Weight: 146 66.5 cc: client file
--- NOTE | ~2016-08-24 | CR71 ---
[facility] A Service of [facility] & [facility] RADIOLOGY TEXT RESULTS PATIENT: KINA LAUGHLIN LOCATION: [address] : 46 UNIT #: [id number] AGE: [address]: Rolando Dawkins MD SEX: M ORDER DR: [id number] [facility] [address] [facility]. [place], [place] [address] [id number] I MR#: [id number] Acc #: [id number] NAME: KINA LAUGHLIN : 1945 SEX: M STUDY DATE/TIME: 09/08/2016 4:34 UNIT: [facility] ROOM: [facility] STUDY DESCRIPTION: CR Chest Single View Attending Physician: Rolando Dawkins M.D. Ordering Physician: David Murphy M.D. Primary Care Physician: No Primary Care Physician MEDICAL IMAGING REPORT This report is preliminary unless electronic signature is present EXAM Portable chest INDICATION Chest tube follow up. PROCEDURE Frontal view chest. COMPARISON 09/07/2016 FINDINGS Heart size stable. Small right-sided pneumothorax is unchanged. The right-sided chest tube is stable. IMPRESSION Stable right-sided chest tube and small right-sided pneumothorax. Dictated by... Adama Gil M.D. THIS IS AN ELECTRONICALLY VERIFIED REPORT Adama Gil M.D. at 09/08/2016 10:05 PM NILDA/sara TD: 09/08/2016 07:24 JOB #: [id number] MEDICAL IMAGING REPORT Page 1 of 1 COPY
--- NOTE | ~2016-08-24 | CO ---
Unit #: [id number] #: [id number] Patient: KINA LEON [id number] [facility] [address] [facility]. [place], [place] [address] [id number] I MR#: [id number] NAME: KINA LEON ROOM: CIC3 Age: 71 Sex: M Admission Date: 08/24/2016 : 1945 Attending Physician: Rolando Dawkins M.D. Primary Care Physician: No Primary Care Physician Consultation Date: 09/13/2016 CONSULTATION REPORT REASON FOR CONSULTATION Followup. DISCUSSION Mr. Kina Leon is a 71-year-old white male. The patient was seen in CCU 3 bed 14, on 09/13/2016 at [facility]. The patient was receiving oxygen through nasal cannula. He was sitting comfortably in the recliner. The patient has a sitter. The patient did fairly well last night as well as this morning. Compliant with medication. No side effects from medication. Able to answer questions appropriately. The patient does have problems with memory, but at this time is cooperative. The patient was having severe agitation episodes and confusion. The patient denied any current suicidal or homicidal ideation. Denied any psychotic symptoms at this time. The patient's vital signs are 98.5, 94, 27, 114/65, oxygen saturation 96%. MENTAL STATUS EXAMINATION The patient is dressed casually, sitting comfortably in a chair. Concentration fair. Speech regular rate. Oriented to place and person. Mood and affect labile. Thought process circumstantial. Thought content, the patient denied any thoughts of harming self or others. No homicidal ideation. Periods of agitation. Confusion. Recent and remote memory fair to slightly impaired. Language fair. Insight and judgment fair to slightly impaired. DIAGNOSES Psychiatric: Major depressive disorder, recurrent, severe, F33.2. Delirium, F05. 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 PLAN 1. Supportive psychotherapy, psychoeducation provided to the patient. 2. Educated about the benefits and side effects of medication and course and prognosis of illness. 3. Recommending at this time to continue with Zyprexa. If needed consider further adjustment of medication. 4. Please feel free to call if any questions. Telephone number [phone]. Dictated by... Maurilio Hickey M.D. Unit #: [id number] #: [id number] Patient: KINA LEON SZC/gz TD: 09/15/2016 10:21 JOB #: [id number] CONSULTATION REPORT Page 1 of 1 X Maurilio Hickey MD X CONSULTATION REPORT
--- NOTE | ~2016-08-24 | CR72 ---
[facility] A Service of [facility] & [facility] RADIOLOGY TEXT RESULTS PATIENT: KINA LAUGHLIN LOCATION: [address] : 46 UNIT #: [id number] AGE: [address]: Rolando Dawkins MD SEX: M ORDER DR: [id number] [facility] [address] [place], [place] [address] [id number] I MR#: [id number] Acc #: [id number] NAME: KINA LAUGHLIN : 1945 SEX: M STUDY DATE/TIME: 09/13/2016 5:01 UNIT: [facility] ROOM: [facility] STUDY DESCRIPTION: CR Chest Single View Portable Attending Physician: Rolando Dawkins M.D. Ordering Physician: Bryant Wyatt M.D. Primary Care Physician: Primary Care Physician No MEDICAL IMAGING REPORT This report is preliminary unless electronic signature is present EXAM Portable chest INDICATION Chest tube follow up. PROCEDURE Frontal view chest. COMPARISON 09/12/2016. FINDINGS Chest tubes are stable. There is a small lateral right pneumothorax. No new dense consolidation. IMPRESSION Small lateral right pneumothorax. Chest tubes are unchanged. Dictated by... Adama Gil M.D. THIS IS AN ELECTRONICALLY VERIFIED REPORT Adama Gil M.D. at 09/16/2016 7:20 AM NILDA/lulu TD: 09/13/2016 09:59 JOB #: [id number] MEDICAL IMAGING REPORT Page 1 of 1 COPY
--- NOTE | ~2016-08-24 | CR72 ---
[facility] A Service of [facility] RADIOLOGY TEXT RESULTS PATIENT: KINA LAUGHLIN LOCATION: [facility] 312-01 : 46 UNIT #: [id number] AGE: [address]: Rolando Dawkins MD SEX: M ORDER DR: [id number] [facility] [address] [facility] [place], [place] [address] [id number] I MR#: [id number] Acc #: [id number] NAME: KINA LAUGHLIN : 1945 SEX: M STUDY DATE/TIME: 08/26/2016 9:13 UNIT: C3A U ROOM: [facility] STUDY DESCRIPTION: CR Chest Single View Portable Attending Physician: Rolando Dawkins M.D. Ordering Physician: Rolando Dawkins M.D. Primary Care Physician: No Primary Care Physician MEDICAL IMAGING REPORT This report is preliminary unless electronic signature is present EXAM AP portable chest. Date: 08/26/2016 at 09:13. HISTORY 71-year-old male with chest pain, shortness of breath since 08/24/2016. History of right pneumothorax with chest tube in place. COMPARISON AP portable chest 08/25/2016. FINDINGS The right chest tube appears slightly more cephalad oriented, extending to the apex. Right chest wall subcutaneous air appears very slightly increased. Suspected tiny basilar pneumothorax at the right costophrenic angle, which appears smaller when compared to the 08/25/2016 examination. Lungs are hyperinflated and may be emphysematous. Heart size is within normal limits. No mediastinal shift. IMPRESSION 1. The right chest tube appears to have been repositioned since previous study, now directed toward the apex. Slight increase in right chest wall subcutaneous air. 2. Tiny right basilar pneumothorax remains at the costophrenic angle, and basilar pneumothorax appears diminished since 08/25/2016. Dictated by... Cookie Leal M.D. THIS IS AN ELECTRONICALLY VERIFIED REPORT Cookie Leal M.D. at 08/27/2016 7:08 AM LLH/gz [facility] A Service of [facility] RADIOLOGY TEXT RESULTS PATIENT: KINA LAUGHLIN LOCATION: A 312-01 : 46 UNIT #: [id number] AGE: [address]: Rolando Dawkins MD SEX: M ORDER DR: TD: 08/26/2016 13:13 JOB #: [id number] MEDICAL IMAGING REPORT Page 1 of 1 COPY
--- NOTE | ~2016-08-24 | CR72 ---
[facility] A Service of [facility] RADIOLOGY TEXT RESULTS PATIENT: KINA LAUGHLIN LOCATION: [facility] : 46 UNIT #: [id number] AGE: [address]: Rolando Dawkins MD SEX: M ORDER DR: [id number] [facility] [address] [facility]. [place], [place] [address] [id number] I MR#: [id number] Acc #: [id number] NAME: KINA LAUGHLIN : 1945 SEX: M STUDY DATE/TIME: 09/15/2016 4:20 UNIT: [facility] ROOM: [facility] STUDY DESCRIPTION: CR Chest Single View Portable Attending Physician: Rolando Dawkins M.D. Ordering Physician: Bryant Wyatt M.D. Primary Care Physician: No Primary Care Physician MEDICAL IMAGING REPORT This report is preliminary unless electronic signature is present EXAM AP portable chest, 09/15/2016. HISTORY Pneumothorax. Chest tube. Follow up pulmonary status. TECHNIQUE AP portable chest x-ray. FINDINGS Two right chest tubes remain in place. Small to moderate right basilar pneumothorax appears slightly larger than on yesterday's study, but the component of the pneumothorax in the right lateral mid chest has decreased in size since yesterday. Soft tissue emphysema in the right lower chest wall is stable. Persistent patchy infiltrate and volume loss in the right mid and lower lung, unchanged. Emphysematous hyperexpanded left lung clear with bullous changes at the left lung apex. PICC in good position. Feeding tube in the upper portion of the stomach. IMPRESSION 1. Right basilar pneumothorax. Two right chest tubes. 2. Patchy infiltrate and atelectasis right mid and lower lung. Dictated by... Rolando Ambriz M.D. THIS IS AN ELECTRONICALLY VERIFIED REPORT Rolando Ambriz M.D. at 09/15/2016 9:56 PM RGW/tmw [facility] A Service of [facility] RADIOLOGY TEXT RESULTS PATIENT: KINA LAUGHLIN [facility] [birth year] UNIT #: [id number] AGE: [address]: Rolando Dawkins MD SEX: M ORDER DR: TD: 09/15/2016 12:39 JOB #: [id number] MEDICAL IMAGING REPORT Page 1 of 1 COPY
--- NOTE | ~2016-08-24 | CR72 ---
[facility] A Service of [facility] RADIOLOGY TEXT RESULTS PATIENT: KINA LAUGHLIN [facility] 46 UNIT #: [id number] AGE: [address]: Rolando Dawkins MD SEX: M ORDER DR: [id number] [facility] [address] [facility]. [place], [place] [address] [id number] I MR#: [id number] Acc #: [id number] NAME: KINA LAUGHLIN : 1945 SEX: M STUDY DATE/TIME: 09/01/2016 5:31 UNIT: [facility] ROOM: [facility] STUDY DESCRIPTION: CR Chest Single View Portable Attending Physician: Rolando Dawkins M.D. Ordering Physician: Bryant Wyatt M.D. Primary Care Physician: No Primary Care Physician MEDICAL IMAGING REPORT This report is preliminary unless electronic signature is present EXAM Portable chest, 09/01/2016. HISTORY Respiratory failure since 08/24/2016. Chest tube. COMPARISON Chest, 08/31/2016. FINDINGS Frontal chest demonstrates slight coiling of the weighted enteric tube in the proximal body of the stomach. Repositioning may be considered. All other tubes and lines are stable. No visible pneumothorax. Right basilar atelectasis/infiltrate is unchanged. Heart size and mediastinum stable. Extensive subcutaneous emphysema is unchanged. IMPRESSION 1. Weighted enteric feeding tube tip is coiled in the proximal body of the stomach. Correlation with tube functioning and repositioning may be considered if indicated. All other tubes and lines are stable. No visible pneumothorax. 2. Stable right basilar atelectasis/infiltrate. 3. Extensive subcutaneous emphysema, unchanged. Dictated by... Larry Waite M.D. THIS IS AN ELECTRONICALLY VERIFIED REPORT Larry Waite M.D. at 09/02/2016 8:52 AM JENNY/jenny [facility] A Service of [facility] RADIOLOGY TEXT RESULTS PATIENT: KINA LAUGHLIN [facility] 46 UNIT #: [id number] AGE: [address]: Rolando Dawkins MD SEX: M ORDER DR: TD: 09/01/2016 07:16 JOB #: [id number] MEDICAL IMAGING REPORT Page 1 of 1 COPY
--- NOTE | ~2016-08-24 | CR7 ---
[facility] A Service of [facility] & [facility] RADIOLOGY TEXT RESULTS PATIENT: KINA LAUGHLIN LOCATION: [address] : [birth year] UNIT #: [id number] AGE: [address]: Rolando Dawkins MD SEX: M ORDER DR: [id number] [facility] [address] [facility]. [place], [place] [address] [id number] I MR#: [id number] Acc #: [id number] NAME: KINA LAUGHLIN : 1945 SEX: M STUDY DATE/TIME: 08/28/2016 11:06 UNIT: [facility] ROOM: [facility] STUDY DESCRIPTION: CR Abdomen Single AP View Attending Physician: Rolando Dawkins M.D. Ordering Physician: Bryant Wyatt M.D. Primary Care Physician: Primary Care Physician No MEDICAL IMAGING REPORT This report is preliminary unless electronic signature is present EXAM Portable abdomen INDICATION Dobbhoff tube placement. FINDINGS This portable view of the abdomen shows the Dobbhoff tube tip is in the body of the stomach. Extensive subcutaneous emphysema is present. There are degenerative changes in the lumbar spine. Dictated by... Bridger Carter M.D. THIS IS AN ELECTRONICALLY VERIFIED REPORT Bridger Carter M.D. at 08/28/2016 3:39 PM LORA/lulu TD: 08/28/2016 12:06 JOB #: [id number] MEDICAL IMAGING REPORT Page 1 of 1 COPY
--- NOTE | ~2016-08-24 | FU ---
[facility] Nutrition Therapy DATE: 09/16/16 Patient: KINA LAUGHLIN Physician: JOSH Address: [address] Room/Bed: [address], Zip: [place] [address] Admit Date: 08/24/16 Date of : [birth year] Height: 5 7 Weight: 128 58.5 NUTRITION MONITORING/FOLLOW-UP: Reason: PT SEEN FOR FOLLOW-UP/ENTERAL NUTRITION SUPPORT DX: SOA, ACUTE COPD EXAC Anthropometrics: 5'7", WT: 134# (61 KG), BMI: 21.0 -WEIGHTS HAVE RANGED 125-145# SINCE ADMIT Labs: GLU: 145, K+:2.7, CA+:7.9, ALB: 2.4 (09/07/16) Meds: KCL, PROTONIX, NACL, MAG SULFATE I&O's: 4005/2351, 1 BM NOTED Skin: PREVIOUSLY NOTED Estimated Nutrition Needs: [id number] KCAL 69-86 G PRO Assessment: CHART REVIEWED AND EVENTS NOTED. PT SEEN FOR ENTERAL NUTRITION SUPPORT FOLLOW-UP. PT AWAKE AT TIME OF VISIT RECEIVING ALTERNATIVE NUTRITION SUPPORT OF JEVITY 1.5 @ 50 ML/HR. PER RN AND CHART, PT TOLERATING ENTERAL NUTRITION SUPPORT, NOTING NO ISSUES. PER PUMP HISTORY, PT RECEIVING ~90% GOAL VOLUME OF ENTERAL NUTRITION PAST 24 HOURS. OF NOTE, PHARMACEUTICAL SALES SPECIALIST DEEMED PT NOT APPROPRIATE FOR DIET ADVANCEMENT 2' RISK FOR ASPIRATION, PT CURRENTLY NPO. PT REPORTED NO DIET QUESTIONS AT THIS TIME. RD TO CONTINUE TO FOLLOW. SEE RECOMMENDATIONS BELOW. -EN PROVIDES 1800 KCAL, 77 G PRO, 912 ML FREE H20 Dx: INADEQUATE ORAL INTAKE R/T CLINICAL CONDITION AEB POOR PO INTAKE, PHARMACEUTICAL SALES SPECIALIST EVALUATION.-ACTIVE NEW DX: INADEQUATE ORAL INTAKE R/T CLINICAL CONDITION AEB PT RECEIVING ENTERAL NUTRITION SUPPORT. Intervention: 1. ENTERAL NUTRITION SUPPORT 2. PHARMACEUTICAL SALES SPECIALIST EVAL Monitoring, Evaluation and Goals: 1. ENTERAL NUTRITION; PROVIDE >80% ESTIMATED NEEDS-ACTIVE 2. WEIGHTS; PROMOTE GRADUAL WEIGHT GAIN TOWARDS IBW-IN PROGRESS 3. ORAL INTAKE; ADVANCE DIET AND CONSUME/TOLERATE >50% OF MEALS-NOT ACTIVE 4. LABS; WNL: K+ [facility] Nutrition Therapy DATE: 09/16/16 Patient: KINA LAUGHLIN Physician: JOSH Address: [address] Room/Bed: [address], Zip: [place] [address] Admit Date: 08/24/16 Date of : [birth year] Height: 5 7 Weight: 128 58.5 MONITOR: -TF RATE/TOLERANCE -WEIGHTS -LABS -EXTUBATION? Recommendations: 1. CONTINUE TO MONITOR LYTES-K+ LOW 2. RECOMMEND TO CONTINUE CURRENT ENTERAL NUTRITION SUPPORT OF JEVITY 1.5 @ 50 ML/HR X 24 HOURS CONTINUE FREE H20 FLUSHES PER MD 3. CONTINUE PHARMACEUTICAL SALES SPECIALIST RE-EVAL FOR SAFE SWALLOW DIET ADVANCEMENT RD WILL F/U PER PROTOCOL PT IS MODERATELY COMPROMISED Respectfully, YARELY ROJO MS, RD, LD Food and Nutritional Services [facility] cc: client file
--- NOTE | ~2016-08-24 | CR72 ---
[facility] A Service of [facility] & [facility] RADIOLOGY TEXT RESULTS PATIENT: KINA LAUGHLIN LOCATION: [address] : 46 UNIT #: [id number] AGE: [address]: Rolando Dawkins MD SEX: M ORDER DR: [id number] [facility] [address] [facility]. [place], [place] [address] [id number] I MR#: [id number] Acc #: [id number] NAME: KINA LAUGHLIN : 1945 SEX: M STUDY DATE/TIME: 09/03/2016 4:12 UNIT: [facility] ROOM: [facility] STUDY DESCRIPTION: CR Chest Single View Portable Attending Physician: Rolando Dawkins M.D. Ordering Physician: Bryant Wyatt M.D. MEDICAL IMAGING REPORT This report is preliminary unless electronic signature is present EXAM Single view chest INDICATIONS Respiratory failure. Right chest tube. FINDINGS Single portable AP view of the chest compared to 08/31/2016. Support lines and tubes remain in place. Right lower lobe airspace opacity is similar to the prior study. No pneumothorax. Volume of subcutaneous emphysema is fairly similar to the prior study. IMPRESSION No interval change. Dictated by... Fabrice Foley M.D. THIS IS AN ELECTRONICALLY VERIFIED REPORT Fabrice Foley M.D. at 09/03/2016 9:07 PM MARCIO/michael TD: 09/03/2016 07:17 JOB #: [id number] MEDICAL IMAGING REPORT Page 1 of 1 COPY
--- NOTE | ~2016-08-24 | FU ---
[facility] Nutrition Therapy DATE: 09/20/16 Patient: KINA LAUGHLIN Physician: JOSH Address: [address] Room/Bed: [address], Zip: [place] [address] Admit Date: 08/24/16 Date of : [birth year] Height: 5 7 Weight: 132 59.9 NUTRITION MONITORING/FOLLOW-UP: Reason: PT SEEN FOR FOLLOW-UP/ENTERAL NUTRITION SUPPORT DX: SOA, COPD Anthropometrics: 5'7", WT: 130# (59 KG), BMI: 20.4 -WEIGHTS HAVE RANGED 125-145# SINCE ADMIT Labs: GLU: 132, ALB: 2.4, ALT: 41 Meds: MIRALAX, KCL, PROTONIX, NACL I&O's: 2950/2225 Skin: PREVIOUSLY NOTED. NO NEW ISSUES Estimated Nutrition Needs: [phone] KCAL 69-86 G PRO Assessment: CHART REVIEWED AND EVENTS NOTED. PT SEEN FOR ENTERAL NUTRITION SUPPORT FOLLOW-UP. PT ASLEEP AT TIME OF VISIT (EXTUBATED). ENTERAL NUTRITION SUPPORT OF JEVITY 1.5 CURRENTLY OFF AT THIS TIME 2' PT PULLING DHT OUT. CONCRETE TILE MACHINE OPERATOR DEEMS PT NOT APPROPRIATE FOR DIET ADVANCEMENT 2' RISK OF ASPIRATION. PER RN AND CHART, PT TOLERATING PRIOR ENTERAL NUTRITION SUPPORT, NOTING NO ISSUES. ?PLANS FOR HOSPICE. RD TO CONTINUE TO FOLLOW. Dx: INADEQUATE ORAL INTAKE R/T CURRENT DIAGNOSIS AEB POOR PO INTAKE, CONCRETE TILE MACHINE OPERATOR EVAL.-ACTIVE INADEQUATE ORAL INTAKE R/T CURRENT DIAGNOSIS AEB PT RECEIVING ENTERAL NUTRITION SUPPORT.-NOT ACTIVE NEW DX: INADEQUATE ENTERAL NUTRITION SUPPORT INFUSION R/T PT PUTTING DHT OUT (MULTIPLE TIMES) AEB ENTERAL NUTRITION SUPPORT TURNED OFF AT TIME OF VISIT. Intervention: 1. NPO (EN OFF) Monitoring, Evaluation and Goals: 1. ENTERAL NUTRITION; PROVIDE >80% ESTIMATED NUTRIENT NEEDS AT GOAL-NOT MET 2. WEIGHTS; PROMOTE GRADAL WEIGHT GAIN TOWARDS IBW-ACTIVE/IN PROGRESS 3. LABS; WNL:K+-MET 4. ORAL INTAKE; ADVANCE DIET PER CONCRETE TILE MACHINE OPERATOR AND CONSUME >50% OF MEALS W/NO C/O N/V/D-NOT MET MONITOR: [facility] Nutrition Therapy DATE: 09/20/16 Patient: KINA LAUGHLIN Physician: BAKRIC Address: [address] Room/Bed: [address], Zip: [place] [address] Admit Date: 08/24/16 Date of : 46 Height: 5 7 Weight: 132 59.9 -TF RE-INITIATION -TF RATE/RESIDUALS/TOLERANCE -CONCRETE TILE MACHINE OPERATOR RE-EVAL? -WEIGHTS Recommendations: 1. ONCE MEDICALLY FEASIBLE, RE-INITIATE ENTERAL NUTRITION SUPPORT OF JEVITY 1.5 @ 20 ML/HR, ADVANCE 10 ML q 4 HOURS TO GOAL RATE OF 50 ML/HR -PROVIDES 1800 KCAL, 77 G PRO, 912 ML FREE H20 CONTINUE FREE H20 FLUSHES PER MD 2. CONCRETE TILE MACHINE OPERATOR TO CONTINUE TO EVAL FOR SAFE SWALLOW RD WILL F/U PER PROTOCOL PT IS MODERATELY COMPROMISED Respectfully, YARELY ROJO MS, RD, LD Food and Nutritional Services [facility] cc: client file
--- NOTE | ~2016-08-24 | CR7 ---
[facility] A Service of [facility] & [facility] RADIOLOGY TEXT RESULTS PATIENT: KINA LAUGHLIN LOCATION: [facility]3-14 : 46 UNIT #: [id number] AGE: [address]: Rolando Dawkins MD SEX: M ORDER DR: [id number] [facility] [address] [facility]. [place], [place] [address] [id number] I MR#: [id number] Acc #: [id number] NAME: KINA LAUGHLIN : 1945 SEX: M STUDY DATE/TIME: 08/30/2016 9:31 UNIT: [facility] ROOM: [facility] STUDY DESCRIPTION: CR Abdomen Single AP View Attending Physician: Rolando Dawkins M.D. Ordering Physician: Bryant Wyatt M.D. Primary Care Physician: No Primary Care Physician MEDICAL IMAGING REPORT This report is preliminary unless electronic signature is present EXAM AP abdomen. Date: 08/30/2016 at 09:31 HISTORY Abdominal distension and pain today. Nausea, vomiting. COMPARISON AP abdomen 08/28/2016 at 11:06. AP portable chest 08/30/2016 at 04:37. FINDINGS Extensive subcutaneous air is demonstrated bilaterally over the lower chest, abdomen, extending into the pelvis, quite similar to the 08/28/2016 examination. The Dobbhoff tube has been retracted since the previous study, the radiopaque tip just barely passed through the esophogastric junction. There is mild stool burden in the region of the ascending and transverse colon. However, no definite abnormal large or small bowel dilation is seen. There is no convincing evidence of high-grade bowel obstruction. Right femoral approach central line extends to the L5 level. Cholecystectomy. Lumbar dextroscoliosis. IMPRESSION 1. Nonspecific but nonobstructive appearing bowel gas pattern with mild stool burden in the region of the ascending and transverse colon. 2. Extensive subcutaneous air is seen bilaterally over the lower chest, abdomen and pelvis, thought to be similar to 08/28/2016. 3. The Dobbhoff tube tip has been retracted since 08/28/2016. The tip lies just past the esophagogastric junction. Recommend advancing STS. [facility] A Service of [facility] & [facility] RADIOLOGY TEXT RESULTS PATIENT: KINA LAUGHLIN LOCATION: [facility]3-14 : 47 UNIT #: [id number] AGE: [address]: Rolando Dawkins MD SEX: M ORDER DR: several centimeters further into the stomach and repeated KUB to confirm placement. Dictated by... Cookie Leal M.D. THIS IS AN ELECTRONICALLY VERIFIED REPORT Cookie Leal M.D. at 09/02/2016 8:31 AM EVARISTO/hardik TD: 08/30/2016 11:33 JOB #: [id number] MEDICAL IMAGING REPORT Page 1 of 1 COPY
--- NOTE | ~2016-08-24 | CR72 ---
[facility] A Service of [facility] & [facility] RADIOLOGY TEXT RESULTS PATIENT: KINA LAUGHLIN LOCATION: [address]14 : [birth year] UNIT #: [id number] AGE: [address]: Rolando Dawkins MD SEX: M ORDER DR: [id number] [facility] [address] [facility]. [place], [place] [address] [id number] I MR#: [id number] Acc #: [id number] NAME: KINA LAUGHLIN : 1945 SEX: M STUDY DATE/TIME: 09/16/2016 4:39 UNIT: [facility] ROOM: [facility] STUDY DESCRIPTION: CR Chest Single View Portable Attending Physician: Rolando Dawkins M.D. Ordering Physician: Raymundo Chaudhry M.D. Primary Care Physician: No Primary Care Physician MEDICAL IMAGING REPORT This report is preliminary unless electronic signature is present EXAM Chest x-ray 09/16/16. HISTORY Pneumothorax. Chest tubes. Exam for followup. TECHNIQUE AP portable chest x-ray. FINDINGS Right basilar pneumothorax has decreased in size since yesterday. Newly visible tiny right apical pneumothorax today. Two right chest tubes remain in place. Patchy infiltrate in the right mid and lower lung. Left lung remains clear. PICC and Dobbhoff feeding tube remain in good position. IMPRESSION Persistent right pneumothorax with 2 right chest tubes. Patchy right lung infiltrates unchanged. Dictated by... Rolando Ambriz M.D. THIS IS AN ELECTRONICALLY VERIFIED REPORT Rolando Ambriz M.D. at 09/16/2016 9:58 PM MAGDIEL/judy TD: 09/16/2016 09:30 JOB #: [id number] MEDICAL IMAGING REPORT Page 1 of 1 COPY
--- NOTE | ~2016-08-24 | CR72 ---
[facility] A Service of [facility] & [facility] RADIOLOGY TEXT RESULTS PATIENT: KINA LAUGHLIN LOCATION: [address]14 : [birth year] UNIT #: [id number] AGE: [address]: Rolando Dawkins MD SEX: M ORDER DR: [id number] [facility] [address] [facility]. [place], [place] [address] [id number] I MR#: [id number] Acc #: [id number] NAME: KINA LAUGHLIN : 1945 SEX: M STUDY DATE/TIME: 08/30/2016 04:37 UNIT: [facility] ROOM: [facility] STUDY DESCRIPTION: CR Chest Single View Portable Attending Physician: Rolando Dawkins M.D. Ordering Physician: Alka Hilton A.P.R.N. Primary Care Physician: Primary Care Physician No MEDICAL IMAGING REPORT This report is preliminary unless electronic signature is present EXAM Portable chest 08/30/2016 04:37 INDICATION Chest tube. Pneumothorax. FINDINGS AP portable chest is compared with 08/29/2016. ET tube and right side chest tube remain in place. The tip of the feeding tube is just past the GE junction. Consider advancing the tube and obtaining a KUB. Extensive soft tissue gas noted on both sides of the chest. There is continued consolidation in the right lower lung zone. No definite pneumothorax is seen on either side. Bullous changes are noted in the apices. Dictated by... Jez Henao Jr., M.D. THIS IS AN ELECTRONICALLY VERIFIED REPORT Jez Henao Jr., M.D. at 09/02/2016 8:36 AM TIMOTEO/lulu TD: 08/30/2016 07:01 JOB #: [id number] MEDICAL IMAGING REPORT Page 1 of 1 COPY
--- NOTE | ~2016-08-24 | CR72 ---
[facility] A Service of [facility] & [facility] RADIOLOGY TEXT RESULTS PATIENT: KINA LAUGHLIN LOCATION: [address]-14 : [birth year] UNIT #: [id number] AGE: [address]: Rolando Dawkins MD SEX: M ORDER DR: [id number] [facility] [address] [address] [facility]. [place], [place] [address] [id number] I MR#: [id number] Acc #: [id number] NAME: KINA LAUGHLIN : 1945 SEX: M STUDY DATE/TIME: 09/04/2016 4:29 UNIT: [facility] ROOM: [facility] STUDY DESCRIPTION: CR Chest Single View Portable Attending Physician: Rolando Dawkins M.D. Ordering Physician: Bryant Wyatt M.D. Primary Care Physician: Primary Care Physician No MEDICAL IMAGING REPORT This report is preliminary unless electronic signature is present EXAM Single view chest INDICATIONS Respiratory failure. Chest tube placement. FINDINGS Single portable AP view of the chest compared to 09/03/2016. Support lines and tubes remain in place. There is question of a small right apical pneumothorax, however this may simply represent a skin fold. Right-sided chest tube remains in place. Heart and mediastinal contours are stable. Left lung is unchanged. IMPRESSION Possible small right apical pneumothorax, however, this may simply be artifact due to a skin fold. I would recommend short-interval followup chest radiograph to further evaluate. Please note that the right-sided chest tube remains in place. Dictated by... Fabrice Foley M.D. THIS IS AN ELECTRONICALLY VERIFIED REPORT Fabrice Foley M.D. at 09/04/2016 11:21 PM MARCIO/goldie TD: 09/04/2016 06:14 JOB #: [id number] MEDICAL IMAGING REPORT Page 1 of 1 COPY
--- NOTE | ~2016-08-24 | CR72 ---
[facility] A Service of [facility] & [facility] RADIOLOGY TEXT RESULTS PATIENT: KINA LAUGHLIN LOCATION: [address]-14 : [birth year] UNIT #: [id number] AGE: [address]: Rolando Dawkins MD SEX: M ORDER DR: [id number] [facility] [address] [place] [facility]. [place], [place] [address] [id number] I MR#: [id number] Acc #: [id number] NAME: KINA LAUGHLIN : 1945 SEX: M STUDY DATE/TIME: 08/28/2016 5:03 UNIT: [facility] ROOM: [facility] STUDY DESCRIPTION: CR Chest Single View Portable Attending Physician: Rolando Dawkins M.D. Ordering Physician: Rolando Dawkins M.D. Primary Care Physician: Primary Care Physician No MEDICAL IMAGING REPORT This report is preliminary unless electronic signature is present EXAM Portable chest INDICATION Follow up chest tube and pneumothorax. FINDINGS Today's portable view of the chest shows a chest tube is still in place but has been pulled back 2-3 cm. There is a moderate to large right pneumothorax now present. Left lung is clear. Diffuse emphysema in the chest wall is present. The endotracheal tube is in good position. I have already discussed the findings with the patient's nurse in CCU. Dictated by... Bridger Carter M.D. THIS IS AN ELECTRONICALLY VERIFIED REPORT Bridger Carter M.D. at 08/28/2016 8:41 AM LORA/lulu TD: 08/28/2016 07:27 JOB #: [id number] MEDICAL IMAGING REPORT Page 1 of 1 COPY
--- NOTE | ~2016-08-24 | CR72 ---
[facility] A Service of [facility] RADIOLOGY TEXT RESULTS PATIENT: KINA LAUGHLIN LOCATION: [facility] : 46 UNIT #: [id number] AGE: [address]: Rolando Dawkins MD SEX: M ORDER DR: [id number] [facility] [address] [facility]. [place], [place] [address] [id number] I MR#: [id number] Acc #: [id number] NAME: KINA LAUGHLIN : 1945 SEX: M STUDY DATE/TIME: 09/02/2016 6:36 UNIT: [facility] ROOM: [facility] STUDY DESCRIPTION: CR Chest Single View Portable Attending Physician: Rolando Dawkins M.D. Ordering Physician: Bryant Wyatt M.D. Primary Care Physician: Primary Care Physician No MEDICAL IMAGING REPORT This report is preliminary unless electronic signature is present EXAM Portable chest 09/02 COMPARISON" 09/01 HISTORY History supplied is respiratory failure, pneumothorax. Continued subcutaneous emphysema. Symptoms for 9 days. FINDINGS AP portable view is obtained. The patient remains intubated. Nasoenteric tube is in the stomach. The heart size is normal and there continues to be extensive subcutaneous emphysema. On the right side there is a drain in the pleural space and some patchy infiltrate in the right base. The amount of subcutaneous air appears about the same as on the last study. No definite pneumothorax is seen. CONCLUSION Continued extensive subcutaneous emphysema. Right-sided pleural drain good position with continued infiltrate in the right base. Dictated by... Kael Cosme M.D. THIS IS AN ELECTRONICALLY VERIFIED REPORT Kael Cosme M.D. at 09/03/2016 5:06 PM MARQUITA/michael TD: 09/02/2016 07:28 JOB #: [id number] [facility] A Service of [facility] RADIOLOGY TEXT RESULTS PATIENT: KINA LAUGHLIN LOCATION: [facility] : 46 UNIT #: [id number] AGE: [address]: Rolando Dawkins MD SEX: M ORDER DR: MEDICAL IMAGING REPORT Page 1 of 1 COPY
--- NOTE | ~2016-08-24 | CR72 ---
[facility] A Service of [facility] & [facility] RADIOLOGY TEXT RESULTS PATIENT: KINA LAUGHLIN LOCATION: [address]14 : [birth year] UNIT #: [id number] AGE: [address]: Rolando Dawkins MD SEX: M ORDER DR: [id number] [facility] [address] [facility] [address]. [place], [place] [address] [id number] I MR#: [id number] Acc #: [id number] NAME: KINA LAUGHLIN : 1945 SEX: M STUDY DATE/TIME: 08/27/2016 20:17 UNIT: [facility] ROOM: [facility] STUDY DESCRIPTION: CR Chest Single View Portable Attending Physician: Rolando Dawkins M.D. Ordering Physician: Ruel Horvath D.O. Primary Care Physician: No Primary Care Physician MEDICAL IMAGING REPORT This report is preliminary unless electronic signature is present EXAM Portable chest HISTORY Patient intubated. Check endotracheal tube. TECHNIQUE Single view of the chest was obtained and compared with 08/27/2016 earlier this evening. FINDINGS Tip the endotracheal tube is in good position in the mid trachea. Subcutaneous emphysema is unchanged. No evidence of worsening pneumothorax on either side. Dictated by... Jez Clifford M.D. THIS IS AN ELECTRONICALLY VERIFIED REPORT Jez Clifford M.D. at 08/27/2016 10:17 PM RAYMOND/hardik TD: 08/27/2016 21:04 JOB #: [id number] MEDICAL IMAGING REPORT Page 1 of 1 COPY
--- NOTE | ~2016-08-24 | CO ---
Unit #: [id number] #: [id number] Patient: KINA LEON [id number] [facility] [address] [place], [place] [address] [id number] I MR#: [id number] NAME: KINA LEON ROOM: [facility]3 Age: 71 Sex: M Admission Date: 08/24/2016 : 1945 Attending Physician: Rolando Dawkins M.D. Consultation Date: 09/16/2016 CONSULTATION REPORT REASON FOR CONSULTATION Followup. DISCUSSION Mr. Kina Leon is a 71-year-old male, seen in CCU-3, bed 14 on 09/16/2016 at [facility]. The patient was dressed in hospital attire, lying comfortably in bed. The patient developed second pneumothorax and seemed to be in pain, anxious, nervous. The patient's vital signs are pulse 89, respirations 22, blood pressure 116/75, oxygen saturation 97%. The patient did not show any agitation, tolerating medication fairly well, somewhat confused, but pleasant and cooperative. No side effects from medication. REVIEW OF SYSTEMS Complete review of systems unremarkable except as mentioned above. MENTAL STATUS EXAMINATION Vital signs, please see above. General appearance; the patient dressed in hospital attire, lying in bed, seemed to be in pain, anxious, nervous, confused. Attention span and concentration, poor. Speech, slow. Oriented in self. Mood and affect, sad and dysphoric. Thought process, circumstantial. Thought content, guarded. Denied any thoughts of harming self or others. Recent and remote memory, poor. Language, fair. Fund of knowledge, fair. Insight and judgment, fair to slightly impaired. DIAGNOSES Psychiatric: Major neurocognitive disorder secondary to Alzheimer disease with behavioral disturbances, F02.81. ASSESSMENT/PLAN 1. Supportive psychotherapy and psychoeducation provided to the patient, but the patient unable to comprehend much at this time. 2. Advised at this time to continue with current medication. If needed, consider further adjustment of medication. Please feel free to call if any questions, telephone #[phone]. Dictated by... Maurilio Hikcey M.D. REED/elaine TD: 09/17/2016 00:04 JOB #: [id number] Unit #: [id number] #: [id number] Patient: KINA LEON CONSULTATION REPORT Page 1 of 1 X Maurilio Hickey MD CONSULTATION REPORT
--- NOTE | ~2016-08-24 | CR72 ---
[facility] A Service of [facility] & [facility] RADIOLOGY TEXT RESULTS PATIENT: KINA LAUGHLIN LOCATION: [address]14 : [birth year] UNIT #: [id number] AGE: [address]: Rolando Dawkins MD SEX: M ORDER DR: [id number] [facility] [address] [facility]. [place], [place] [address] [id number] I MR#: [id number] Acc #: [id number] NAME: KINA LAUGHLIN : 1945 SEX: M STUDY DATE/TIME: 09/06/2016 5:08 UNIT: [facility] ROOM: [facility] STUDY DESCRIPTION: CR Chest Single View Portable Attending Physician: Rolando Dawkins M.D. Ordering Physician: Bryant Wyatt M.D. Primary Care Physician: Primary Care Physician No MEDICAL IMAGING REPORT This report is preliminary unless electronic signature is present EXAM Single view chest INDICATION Pneumothorax. FINDINGS Single portable AP view of the chest compared to 09/06/2011. There is a small right apical pneumothorax. This projects along the undersurface of the right third rib. This is unchanged. A basilar component to the pneumothorax is also unchanged. Right chest tube remains in place. Left lung is clear. There is enteric tube in the stomach. IMPRESSION Small right apical pneumothorax is not significantly changed from the prior study. Dictated by... Fabrice Foley M.D. THIS IS AN ELECTRONICALLY VERIFIED REPORT Fabrice Foley M.D. at 09/10/2016 7:03 AM MARCIO/lulu TD: 09/06/2016 06:28 JOB #: [id number] MEDICAL IMAGING REPORT Page 1 of 1 COPY
--- NOTE | ~2016-08-24 | CO ---
Unit #: [id number] #: [id number] Patient: KINA LEON [id number] [facility] [address] [facility]. [place], [place] [address] [id number] I MR#: [id number] NAME: KINA LEON [facility]: [facility] Age: 71 Sex: M Admission Date: 08/24/2016 : 1945 Attending Physician: Rolando Dawkins M.D. Primary Care Physician: Primary Care Physician No Consultation Date: 09/23/2016 CONSULTATION REPORT DISCUSSION Mr. Kina Leon is a 71-year-old male, seen on 09/23/2016. The patient interviewed, chart reviewed, and obtained information from nursing staff. The patient is compliant and cooperative, lying comfortably in bed, seen in CCU-2, bed 2, on 09/23/2016 at [facility]. The patient's family was around. The patient's family reported that hospice will be working. The patient has filled DNR form. Mood is sad, dysphoric, anxious, no aggression or agitation. MENTAL STATUS EXAMINATION The patient's vital signs; temperature 98.8, pulse 89, respiratory rate 33, blood pressure 100/68, and oxygen saturation 96%. General appearance; the patient dressed in hospital attire, lying comfortably in bed. No agitation. Attention span and concentration, poor. Speech, slow. Oriented in self and place. Mood and affect, flat. Thought process, circumstantial. Thought content, guarded but denied any thoughts of harming self or others. Recent and remote memory, fair to poor. Language, fair. Fund of knowledge, fair. Insight and judgment, fair to slightly impaired. DIAGNOSES Major neurocognitive disorder due to Alzheimer disease with behavioral disturbances, F02.81. ASSESSMENT/PLAN 1. Supportive psychotherapy and psychoeducation provided to the patient and family. 2. Educated about benefits and side effects of medication and course and prognosis of illness. 3. Advised to continue with current medication. If needed, consider further adjustment of medication. Please feel free to call if any question, telephone #[phone]. Dictated by... Maurilio Hickey M.D. REED/elaine TD: 09/24/2016 02:44 JOB #: [id number] Unit #: [id number] #: [id number] Patient: KINA LEON CONSULTATION REPORT Page 1 of 1 X Maurilio Hickey MD CONSULTATION REPORT
--- NOTE | ~2016-08-24 | CR72 ---
[facility] A Service of [facility] & [facility] RADIOLOGY TEXT RESULTS PATIENT: KINA LAUGHLIN LOCATION: [address] : [birth year] UNIT #: [id number] AGE: [address]: Rolando Dawkins MD SEX: M ORDER DR: [id number] [facility] [address] [facility]. [place], [place] [address] [id number] I MR#: [id number] Acc #: [id number] NAME: KINA LAUGHLIN : 1945 SEX: M STUDY DATE/TIME: 08/29/2016 04:41 UNIT: [facility] ROOM: [facility] STUDY DESCRIPTION: CR Chest Single View Portable Attending Physician: Rolando Dawkins M.D. Ordering Physician: Bryant Wyatt M.D. Primary Care Physician: Primary Care Physician No MEDICAL IMAGING REPORT This report is preliminary unless electronic signature is present EXAM Portable chest 08/29 04:41 INDICATIONS Chest tube. Shortness of air. Ventilator patient. FINDINGS AP portable chest is compared with 08/28/2016. ET tube and right chest tube remain in place. Mild infiltrate is present at the right lung base today. There is emphysema. No definite pneumothorax. Extensive subcutaneous emphysema is again seen. Dictated by... Jez Henao Jr., M.D. THIS IS AN ELECTRONICALLY VERIFIED REPORT Jez Henao Jr., M.D. at 08/29/2016 10:15 PM TIMOTEO/goldie TD: 08/29/2016 07:24 JOB #: [id number] MEDICAL IMAGING REPORT Page 1 of 1 COPY
--- NOTE | ~2016-08-24 | CO ---
Unit #: [id number] #: [id number] Patient: KINA LEON [id number] [facility] [address] [facility]. [place], [place] [address] [id number] I MR#: [id number] NAME: KINA LEON ROOM: [facility] Age: 71 Sex: M Admission Date: 08/24/2016 : 1945 Attending Physician: Rolando Dawkins M.D. Primary Care Physician: No Primary Care Physician Consultation Date: 09/12/2016 CONSULTATION REPORT HISTORY OF PRESENT ILLNESS Kina Leon is a 71-year-old white male seen in room 14 CCU3 on 09/12/16 at [facility]. Patient lying comfortably in bed, dressed in hospital attire. Patient's brother was at the bedside. Patient's brother reported that he was doing well and able to take care of himself, good support system, but after coming to the hospital, having increased confusion, anxiety, agitation. Patient diagnosed with acute exacerbation of COPD with spontaneous pneumothorax, having problems with agitation on the unit. History of depression. Currently denied any suicidal or homicidal ideation. Denied any psychotic symptoms but guarded, paranoid. Patient was treated with Lexapro in the past. PAST PSYCHIATRIC HISTORY Remarkable for history of depression. MEDICAL HISTORY History of COPD, depression, chronic back pain. MEDICATIONS Patient is on Lexapro, Symbicort, Spiriva, ProAir, Bowdle. ALLERGIES No known drug allergies. FAMILY HISTORY/SOCIAL HISTORY Patient denied any use of any drugs or alcohol. No history of any illicit drug abuse. No known history of any abuse. No history of any substance abuse. Patient has a good support system. REVIEW OF SYSTEMS A complete review of systems is unremarkable. MENTAL STATUS EXAMINATION Vital signs - Pulse 94, respirations 25, blood pressure 117/82, oxygen saturation 95%, temperature is 97.9. General appearance - Patient is dressed casually in hospital attire, thinly built, sitting in a propped-up position, receiving oxygen through nasal cannula. Attention span, concentration - Fair. Speech - Slow. Oriented to place and person. Mood and affect - Labile. Thought process - Circumstantial. Thought content - Guarded, paranoid but denied any thoughts of harming self or others. Recent and remote memory - Fair to slightly impaired. Language - Fair. Fund of knowledge - Fair. Insight and judgment - Fair to slightly impaired. DIAGNOSIS Unit #: [id number] #: [id number] Patient: KINA LEON PSYCHIATRIC: Major depressive disorder, recurrent, severe, F33.2; anxiety disorder, NOS, F40.01; delirium, F05, rule out major neurocognitive disorder. ASSESSMENT AND PLAN 1. Supportive psychotherapy and psychoeducation provided to the patient and family. 2. Educated about benefits and side effects of medication and course and prognosis of illness. 3. Advised to continue with current medications with a plan to add Zyprexa 5 mg at bedtime and 2.5 mg in the morning. If needed, plan to adjust dosage further. Advised to hold medication if patient too sleepy. Patient has p.r.n. Ativan available. Currently on Effexor. Continue with that. Please feel free to call with any questions, telephone number . Dictated by... Des Sequeira/catherine TD: 09/13/2016 09:46 JOB #: [id number] CONSULTATION REPORT Page 1 of 1 X Maurilio Hickey MD X CONSULTATION REPORT
--- NOTE | ~2016-08-24 | CR6 ---
[facility] A Service of [facility] & [facility] RADIOLOGY TEXT RESULTS PATIENT: KINA LAUGHLIN LOCATION: [address]14 : [birth year] UNIT #: [id number] AGE: [address]: Rolando Dawkins MD SEX: M ORDER DR: [id number] [facility] [address] [facility]. [place], [place] [address] [id number] I MR#: [id number] Acc #: [id number] NAME: KINA LAUGHLIN : 1945 SEX: M STUDY DATE/TIME: 09/14/2016 0:49 UNIT: [facility] ROOM: [facility] STUDY DESCRIPTION: CR Abdomen Portable Sng View Attending Physician: Rolando Dawkins M.D. Ordering Physician: Rolando Dawkins M.D. Primary Care Physician: No Primary Care Physician MEDICAL IMAGING REPORT This report is preliminary unless electronic signature is present EXAM Portable abdomen for feeding tube placement, 09/14/2016. HISTORY Feeding tube placement. TECHNIQUE AP radiograph of the upper abdomen. FINDINGS Dobbhoff tube is in satisfactory position partially coiled within the upper half of the stomach at 0049 hours on 09/14/2016. Dictated by... Rolando Ambriz M.D. THIS IS AN ELECTRONICALLY VERIFIED REPORT Rolando Ambriz M.D. at 09/14/2016 9:53 PM RGW/jenny TD: 09/14/2016 13:01 JOB #: [id number] MEDICAL IMAGING REPORT Page 1 of 1 COPY
--- NOTE | ~2016-08-24 | FU ---
[facility] Nutrition Therapy DATE: 09/10/16 Patient: KINA QUEVEDOALVINO Physician: JOSH Address: [address] Room/Bed: [address], Zip: [place] [address] Admit Date: 08/24/16 Date of : [birth year] Height: 5 7 Weight: 123 56 NUTRITION MONITORING/FOLLOW-UP: Reason: Follow up Anthropometrics: Wt 09/10: 56 kg Meds: Prednisone, pepcid Labs: Gluc 111 I&O's: , last BM 09/09 Skin: no breakdown noted Edema: none noted Estimated Nutrition Needs: 1411-9859 kcals (28-32 kcals/kg) 69-86 grams protein (1.2-1.5 grams/kg) Diet: Mechanical soft/ NDD2/ NTL + Enteral nutrition (Jevity 1.5 @ 50 mL/hr) Assessment: Chart reviewed, events noted. Pt remains in the ICU, still confused per RN report. Pt continues to receive enteral nutrition, as he has not been able to consume adequate nutrition PO due to AMS, clinical condition. Per SENIOR SECURITY ENGINEER note in chart, pt to have video swallow eval once medically feasible. Pt not appropriate for nutrition interview at this time; as multiple staff members are in room trying to calm him down. RN reported at rounds that the pt consume very minimal amount/ bites for breakfast this AM. Pt continues to receive enteral nutrition with Jevity 1.5. Per pump history, the pt has received 92% goal volume of enteral nutrition x 24 hrs. Please see recommendations below. Dx: 1) Inadequate oral intake RT clinical condition AEB poor intake, SENIOR SECURITY ENGINEER evaluation- ACTIVE Intervention: 1. Diet per SENIOR SECURITY ENGINEER 2. Enteral nutrition 3. Magic Cup BID Monitoring, Evaluation and Goals: 1. EN to provide >80% goal volume x 24 hrs- 2. Promote regular BMs- MET [facility] Nutrition Therapy DATE: 09/10/16 Patient: KINA QIAN Physician: JOSH Address: [address] Room/Bed: [address], Zip: [place] [address] Admit Date: 08/24/16 Date of : [birth year] Height: 5 7 Weight: 123 56 3. Main weight status- NOT MET 4. Advance diet per SENIOR SECURITY ENGINEER- MET 5. Consume and tolerate >50% of meals- NOT MET New goals: 1. EN to provide >80% goal volume x 24 hrs 2. Promote graudal weight gain towards IBW 3. Consume and tolerate >50% of meals Recommendations: 1. Continue enteral nutrition with Jevity 1.5 @ 50 mL/hr x 24 hrs to meet 100% of the pt's estimated nutrient needs, as the pt's PO intake is minimal. 2. Continue to advance diet per SENIOR SECURITY ENGINEER recommendations. 3. Magic Cup BID for supplemental nutrition. 4. Appreciate staff and family encouraging adequate nutritional intake as needed. Once the pt is consuming >50% of meals consistently, discontinue enteral nutrition. Status: Pt is at mild-moderate nutritional risk. Respectfully, BECK MEDINA RD, LD [employer] [facility] [employer] cc: client file
--- NOTE | ~2016-08-24 | CR72 ---
[facility] A Service of [facility] RADIOLOGY TEXT RESULTS PATIENT: KINA LAUGHLIN [facility] [birth year] UNIT #: [id number] AGE: [address]: Rolando Dawkins MD SEX: M ORDER DR: [id number] [facility] [address] [facility]. [place], [place] [address] [id number] I MR#: [id number] Acc #: [id number] NAME: KINA LAUGHLIN : 1945 SEX: M STUDY DATE/TIME: 09/01/2016 7:36 UNIT: [facility] ROOM: [facility] STUDY DESCRIPTION: CR Chest Single View Portable Attending Physician: Rolando Dawkins M.D. Ordering Physician: Rolando Dawkins M.D. Primary Care Physician: No Primary Care Physician MEDICAL IMAGING REPORT This report is preliminary unless electronic signature is present EXAM Portable chest, 09/01/2016. HISTORY Chest tube placement today. COMPARISON Chest 09/01/2016 at 0531 hours. FINDINGS Frontal chest demonstrates tubes and lines in stable position. Interval development of small to moderate right-sided pneumothorax. Right basilar infiltrate unchanged. Heart size and mediastinum stable. Extensive subcutaneous soft tissue emphysema is unchanged. IMPRESSION 1. Interval development of a small to moderate right-sided pneumothorax. Right chest tube appears stable and all other tubes and lines appear stable. No change in extensive subcutaneous soft tissue emphysema. 2. No change in right basilar infiltrate. 3. Results were communicated to the patient's nurse, Orlando, at 0750 hours, 09/01/2016. Dictated by... Larry Waite M.D. THIS IS AN ELECTRONICALLY VERIFIED REPORT Larry Waite M.D. at 09/02/2016 8:53 AM JENNY/jenny TD: 09/01/2016 08:08 [facility] A Service of [facility] RADIOLOGY TEXT RESULTS PATIENT: KINA LAUGHLIN [facility] [birth year] UNIT #: [id number] AGE: [address]: Rolando Dawkins MD SEX: M ORDER DR: JOB #: [id number] MEDICAL IMAGING REPORT Page 1 of 1 COPY
--- NOTE | ~2016-08-24 | CR7 ---
[facility] A Service of [facility] RADIOLOGY TEXT RESULTS PATIENT: KINA LAUGHLIN LOCATION: [facility] : [birth year] UNIT #: [id number] AGE: [address]: Rolando Dawkins MD SEX: M ORDER DR: [id number] [facility] [address] [facility]. [place], [place] [address] [id number] I MR#: [id number] Acc #: [id number] NAME: KINA LAUGHLIN : 1945 SEX: M STUDY DATE/TIME: 09/20/2016 11:01 UNIT: [facility] ROOM: [facility] STUDY DESCRIPTION: CR Abdomen Single AP View Attending Physician: Rolando Dawkins M.D. Ordering Physician: Rolando Dawkins M.D. Primary Care Physician: No Primary Care Physician MEDICAL IMAGING REPORT This report is preliminary unless electronic signature is present EXAM Supine radiograph of the abdomen 09/20/2016 HISTORY Dobbhoff tube placement. FINDINGS Supine radiograph of the abdomen presented. There is a central venous catheter terminating in superior vena cava. This appears to be a right upper extremity approach PICC. Right pleural drain is in place. Compared to chest radiograph from earlier on the same date. The right pneumothorax shows some decrease in volume at the right base. Patchy densities in the right lung unchanged. Flexible feeding tube extends approximately 11 cm below diaphragm and terminates in proximal stomach pointed toward the left probably at gastric fundal level. For placement in mid to distal stomach, it could be advanced 5-10 cm and reassessed radiographically. There is residual contrast material seen throughout the colon. No pathologic colonic or small bowel dilatation. There is no free air. Visualized bony structures show no acute abnormality. Thoracolumbar scoliosis. Dictated by... Kael Mercado M.D. THIS IS AN ELECTRONICALLY VERIFIED REPORT Kael Mercado M.D. at 09/23/2016 8:13 AM Josephine TD: 09/20/2016 13:40 JOB #: [id number] [facility] A Service of [facility] & [facility] RADIOLOGY TEXT RESULTS PATIENT: KINA LAUGHLIN LOCATION: [facility]-02 : [birth year] UNIT #: [id number] AGE: [address]: Rolando Dawkins MD SEX: M ORDER DR: MEDICAL IMAGING REPORT Page 1 of 1 COPY
--- NOTE | ~2016-08-24 | CR71 ---
[facility] A Service of [facility] & [facility] RADIOLOGY TEXT RESULTS PATIENT: KINA LAUGHLIN LOCATION: [address]14 : [birth year] UNIT #: [id number] AGE: [address]: Rolando Dawkins MD SEX: M ORDER DR: [id number] [facility] [address] [facility]. [place], [place] [address] [id number] I MR#: [id number] Acc #: [id number] NAME: KINA LAUGHLIN : 1945 SEX: M STUDY DATE/TIME: 09/16/2016 UNIT: [facility] ROOM: [facility] STUDY DESCRIPTION: CR Chest Single View Attending Physician: Rolando Dawkins M.D. Ordering Physician: Bryant Wyatt M.D. Primary Care Physician: Primary Care Physician No MEDICAL IMAGING REPORT This report is preliminary unless electronic signature is present EXAM Chest portable 09/16/2016 10:15 hours HISTORY Shortness of air, right pneumothorax with chest tubes. Chest tubes placed to water seal. Follow up pneumothorax. Symptoms began 23 days ago. COMPARISON 09/16/2016 04:39 hours FINDINGS Portable upright chest demonstrates flexible feeding tube in the stomach. Right PICC line tip in the SVC. Two right chest tubes are present. The right pneumothorax is significantly increased in size with right basilar atelectasis. No left effusion or pneumothorax seen. IMPRESSION Two right chest tubes remain in the chest, however the right pneumothorax has significantly increased in size from earlier today at 04:39 hours. There is increased atelectasis at the right base. Dictated by... Cintia Wiggins M.D. THIS IS AN ELECTRONICALLY VERIFIED REPORT Cintia Wiggins M.D. at 09/16/2016 2:29 PM SMM/michael TD: 09/16/2016 11:37 JOB #: [id number] MEDICAL IMAGING REPORT Page 1 of 1 COPY
--- NOTE | ~2016-08-24 | CR72 ---
[facility] A Service of [facility] & [facility] RADIOLOGY TEXT RESULTS PATIENT: KINA LAUGHLIN LOCATION: [address]14 : [birth year] UNIT #: [id number] AGE: [address]: Rolando Dawkins MD SEX: M ORDER DR: [id number] [facility] [address] [facility]. [place], [place] [address] [id number] I MR#: [id number] Acc #: [id number] NAME: KINA LAUGHLIN : 1945 SEX: M STUDY DATE/TIME: 09/05/2016 3:41 UNIT: [facility] ROOM: [facility] STUDY DESCRIPTION: CR Chest Single View Portable Attending Physician: Rolando Dawkins M.D. Ordering Physician: Rolando Dawkins M.D. Primary Care Physician: Primary Care Physician No MEDICAL IMAGING REPORT This report is preliminary unless electronic signature is present EXAM Single view chest INDICATION Shortness of air. Right chest tube placement. FINDINGS Single portable AP view of the chest compared to 09/04/2016. Small right apical pneumothorax has not significantly changed. Right-sided chest tube remains in place. Increased interstitial markings throughout both lungs are similar to the prior study. IMPRESSION No change in small right apical pneumothorax. Dictated by... Fabrice Foley M.D. THIS IS AN ELECTRONICALLY VERIFIED REPORT Fabrice Foley M.D. at 09/05/2016 4:42 AM MARCIO/gabriele TD: 09/05/2016 04:35 JOB #: [id number] MEDICAL IMAGING REPORT Page 1 of 1 COPY
--- NOTE | ~2016-08-24 | CR72 ---
[facility] A Service of [facility] RADIOLOGY TEXT RESULTS PATIENT: KINA LAUGHLIN LOCATION: [facility] : [birth year] UNIT #: [id number] AGE: [address]: Rolando Dawkins MD SEX: M ORDER DR: [id number] [place] [id number] [facility]. [place], [place] [address] [id number] I MR#: [id number] Acc #: [id number] NAME: KINA LAUGHLIN : 1945 SEX: M STUDY DATE/TIME: 08/27/2016 19:26 UNIT: [facility] ROOM: [facility] STUDY DESCRIPTION: CR Chest Single View Portable Attending Physician: Rolando Dawkins M.D. Ordering Physician: [facility] [employer] MEDICAL IMAGING REPORT This report is preliminary unless electronic signature is present EXAM Portable chest HISTORY Shortness of breath. Pneumothorax with chest tube placement. COMPARISON STUDIES Comparison from earlier the same day. TECHNIQUE Single view chest was obtained. FINDINGS Right-sided chest tube remains in place. Extensive subcutaneous emphysema is again noted. It has worsened since the previous examination. Pneumomediastinum is noted as well. There is a small residual pneumothorax on the right. Since previous examination, no clear-cut worsening of pneumothorax is seen and no definite pneumothorax is seen on the left. There is still small residual pneumothorax at the right costophrenic angle that appears unchanged. IMPRESSION Small residual pneumothorax at the right costophrenic angle is unchanged from the previous exam. Subcutaneous emphysema is worsening when compared to the previous examination earlier this evening. It is worsening more so on the left than on the right but is worse on both sides. Pneumomediastinum is noted more prominently than on the previous examination as well. Dictated by... Jez Clifford M.D. [facility] A Service of [facility] RADIOLOGY TEXT RESULTS PATIENT: KINA LAUGHLIN LOCATION: [facility] : [birth year] UNIT #: [id number] AGE: [address]: Rolando Dawkins MD SEX: M ORDER DR: THIS IS AN ELECTRONICALLY VERIFIED REPORT Jez Clifford M.D. at 08/27/2016 10:18 PM RLF/leo TD: 08/27/2016 20:57 JOB #: [id number] MEDICAL IMAGING REPORT Page 1 of 1 COPY
--- NOTE | ~2016-08-24 | CT57 ---
[facility] A Service of [facility] RADIOLOGY TEXT RESULTS PATIENT: KINA LAUGHLIN LOCATION: [address]14 : [birth year] UNIT #: [id number] AGE: [address]: Rolando Dawkins MD SEX: M ORDER DR: [id number] [facility] [address] [place], [place] [address] [id number] I MR#: [id number] Acc #: [id number] NAME: KINA LAUGHLIN : 1945 SEX: M STUDY DATE/TIME: 08/27/2016 21:18 UNIT: [facility] ROOM: [facility] STUDY DESCRIPTION: CT Chest Wo Cont Attending Physician: Rolando Dawkins M.D. Ordering Physician: Physician Non-Staff Primary Care Physician: Primary Care Physician No MEDICAL IMAGING REPORT This report is preliminary unless electronic signature is present EXAM CT without contrast HISTORY Shortness of breath for the past 3 days. History of pneumothorax with chest tube. Sudden onset of respiratory distress and facial swelling today with subcutaneous emphysema worsening. TECHNIQUE This CT exam was performed with one or more of the following radiation dose reduction techniques: automatic exposure control, adjustment of mA and/or kV according to patient size, and iterative reconstruction. Axial images were obtained without contrast and evaluated at lung and mediastinal windows. FINDINGS An endotracheal tube and right-sided chest tube both appear in satisfactory position. There is a moderate sized right pneumothorax Most of which is anterior. It ascends down toward the costophrenic angle. Multiple blebs are seen in both lungs with emphysema. There is extensive consolidation in the right lower lobe with preservation of air bronchograms consistent with pneumonia or basilar atelectasis. On the left side, multiple blebs are seen but there is no evidence of pneumothorax. Extensive subcutaneous emphysema is seen as well as pneumomediastinum. The tip of the right-sided chest tube extends somewhat medially and abuts the spine to the right of midline. The tube can be pulled back several centimeters and remain in satisfactory position. There is no evidence of pleural effusion or pericardial fluid. IMPRESSION Extensive subcutaneous emphysema bilaterally with pneumomediastinum. [facility] A Service of [facility] & [facility] RADIOLOGY TEXT RESULTS PATIENT: KINA LAUGHLIN LOCATION: CIC3 CICCU3-14 : 47 UNIT #: [id number] AGE: [address]: Rolando Dawkins MD SEX: M ORDER DR: Moderate residual right-sided pneumothorax. The tip of the right-sided chest tube is somewhat medial and abuts the spine. The tube could be pulled back several centimeters and still remain in good position in the pleural space. There is fairly extensive volume loss and atelectasis in the right lower lobe. Emphysematous changes are seen bilaterally. There is no evidence of left-sided pneumothorax. STAT * RESULT Dictated by... Jez Clifford M.D. THIS IS AN ELECTRONICALLY VERIFIED REPORT Jez Clifford M.D. at 08/27/2016 10:17 PM RAYMOND/hardik TD: 08/27/2016 22:00 JOB #: [id number] MEDICAL IMAGING REPORT Page 1 of 1 COPY
--- NOTE | ~2016-08-24 | CR72 ---
[facility] A Service of [facility] & [facility] RADIOLOGY TEXT RESULTS PATIENT: KINA LAUGHLIN LOCATION: [facility] CICCU3-14 : 46 UNIT #: [id number] AGE: [address]: Rolando Dawkins MD SEX: M ORDER DR: [id number] [facility] [address] [place], [place] [address] [id number] I MR#: [id number] Acc #: [id number] NAME: KINA LAUGHLIN : 1945 SEX: M STUDY DATE/TIME: 08/26/2016 16:30 UNIT: C3A PCU ROOM: [facility] STUDY DESCRIPTION: CR Chest Single View Portable Attending Physician: Rolando Dawkins M.D. Ordering Physician: Alka Hilton A.P.R.N. Primary Care Physician: Primary Care Physician No MEDICAL IMAGING REPORT This report is preliminary unless electronic signature is present EXAM Portable chest INDICATIONS Follow up chest tube. Comparison with earlier today. FINDINGS Right chest tube remains in place. Accounting for difference in patient positioning, there is probably no significant change in the small right basilar pneumothorax. There is stable large amount of subcutaneous air in the right chest wall. Heart size stable. IMPRESSION The right chest tube remains in place. Accounting for differences in patient positioning, there is probably no significant change in the small right basilar pneumothorax. Dictated by... Nael Mcmanus M.D. THIS IS AN ELECTRONICALLY VERIFIED REPORT Nael Mcmanus M.D. at 08/28/2016 7:24 AM ARS/kulwinder TD: 08/26/2016 22:19 JOB #: [id number] MEDICAL IMAGING REPORT Page 1 of 1 COPY
--- NOTE | ~2016-08-24 | CR71 ---
[facility] A Service of [facility] & [facility] RADIOLOGY TEXT RESULTS PATIENT: KINA LAUGHLIN LOCATION: [address]16 : [birth year] UNIT #: [id number] AGE: [address]: Rolando Dawkins MD SEX: M ORDER DR: [id number] [facility] [address] [place], [place] [address] [id number] I MR#: [id number] Acc #: [id number] NAME: KINA LAUGHLIN : 1945 SEX: M STUDY DATE/TIME: 09/21/2016 15:33 UNIT: [facility] ROOM: [facility] STUDY DESCRIPTION: CR Chest Single View Attending Physician: Rolando Dawkins M.D. Ordering Physician: Rolando Dawkins M.D. Primary Care Physician: No Primary Care Physician MEDICAL IMAGING REPORT This report is preliminary unless electronic signature is present EXAM Single view of the chest dated 09/21/2016 at 15:33 hours COMPARISON Single view chest dated 09/20/2016 at 07:30 hours. HISTORY Shortness of air from 08/24/2016. Right sided chest tube is in place. FINDINGS Frontal view of the chest was obtained. Right sided chest tube is again seen. Previously noted moderate right pneumothorax appears to have slightly decreased in the interval but there is still mild to moderate right pneumothorax seen with the most prominent component in the right upper chest measuring up to 2 cm in greatest thickness when compared to the prior 3.5 cm. There is atelectasis and infiltrative changes in the partially collapsed right lung. Previously noted prominent pneumothorax in the right CP angle has improved in the interval. The left lung is stable. There is some lucency in the lungs suspicious for emphysematous changes in the appropriate clinical setting. There are some prominent interstitial markings particularly in the left upper to mid lung zone which could be related to mild interstitial lung disease. Dobbhoff tube is looped in the region of GE junction. It could be related to a hiatal hernia and tube looped in it. This patient has no known hiatal hernia on the CT chest from 08/27/2016. It could be looped in the adjacent fundus of the stomach. Right subclavian approach PICC line catheter tip is in the region of the SVC. IMPRESSION 1. Right subclavian approach PICC line catheter tip is in the region of the SVC. There is a Dobbhoff tube which is new when compared to the previous study and it appears to be looped in the region of the GE STS. [facility] A Service of [facility] & [facility] RADIOLOGY TEXT RESULTS PATIENT: KINA LAUGHLIN LOCATION: CICCU2 CICCU2-02 : 47 UNIT #: [id number] AGE: [address]: Rolando Dawkins MD SEX: M ORDER DR: junction with the tip in the left paramidline aspect pointing superiorly and towards the midline. As the patient is not known to have a hiatal hernia and could be related to tube looped in the region of the GE junction and adjacent fundus of the stomach. Repositioning is suggested. 2. Previously known moderate right pneumothorax appears to have slightly decreased in the interval. Right sided chest tube is in place with partially collapsed right lung with atelectatic changes. Alveolar interstitial opacities are again seen in the right partially collapsed lung. 3. No significant pleural effusion is seen. Heart is of normal size. Dictated by... Kalyani Lucas M.D. THIS IS AN ELECTRONICALLY VERIFIED REPORT Kalyani Lucas M.D. at 09/23/2016 5:09 PM CPR/rnr TD: 09/21/2016 22:25 JOB #: [id number] MEDICAL IMAGING REPORT Page 1 of 1 COPY
--- NOTE | ~2016-08-24 | CO ---
Unit #: [id number] #: [id number] Patient: KINA LEON [id number] [facility] [address] [place], [place] [address] [id number] I MR#: [id number] NAME: KINA LEON ROOM: CIC3 Age: 71 Sex: M Admission Date: 08/24/2016 : 1945 Attending Physician: Rolando Dawkins M.D. Consultation Date: 09/15/2016 CONSULTATION REPORT REASON FOR CONSULTATION Followup. DISCUSSION Mr. Kina Leon is a 71-year-old white male, seen in room CCU-3, bed 14 at [facility] on 09/15/2016. The patient was started on Zyprexa, but had another episode yesterday when he became mad, angry, upset, and agitated. Needed a p.r.n. Haldol. The patient is still having those episodes, responded poorly with Ativan, became more agitated. The patient is compliant and cooperative this afternoon. Able to answer questions appropriately. Able to identify the family. The patient denied any thoughts of harming self or others. Vital signs; pulse 85, respirations 25, blood pressure 145/85, and oxygen saturation 98%. REVIEW OF SYSTEMS A complete review of systems is unremarkable. MENTAL STATUS EXAMINATION General appearance; the patient dressed casually, lying in a left lateral position due to chest tube. Seems to be in somewhat pain, anxious, nervous, and cooperative. Attention span and concentration, fair. Speech, regular rate. Oriented in place and person. Mood and affect; sad and dysphoric. Thought process, coherent. Thought content; the patient denied any thoughts of harming self or others, but periods of agitation and paranoia. Recent and remote memory, fair to slightly impaired. Language, fair. Fund of knowledge, fair to slightly impaired. Insight and judgment, fair to slightly impaired. DIAGNOSES Psychiatric: Major depressive disorder, recurrent, severe, F33.2; major neurocognitive disorder secondary to Alzheimer disease with behavioral disturbances, F02.81. ASSESSMENT AND PLAN 1. Supportive psychotherapy and psychoeducation provided to the patient. 2. Educated about benefits and side effects of medication and course and prognosis of illness. 3. Advised to discontinue Ativan. Advised to increase Zyprexa to 5 mg b.i.d. If needed, consider further adjustment of medication. Please feel free to call if any question, telephone #[phone]. Dictated by... Maurilio Hickey M.D. Unit #: [id number] #: [id number] Patient: KINA LEON REED/elaine TD: 09/16/2016 13:24 JOB #: [id number] CONSULTATION REPORT Page 1 of 1 X Maurilio Hickey MD X CONSULTATION REPORT
--- NOTE | ~2016-08-24 | CR7 ---
[facility] A Service of [facility] & [facility] RADIOLOGY TEXT RESULTS PATIENT: KINA LAUGHLIN LOCATION: [address]14 : [birth year] UNIT #: [id number] AGE: [address]: Rolando Dawkins MD SEX: M ORDER DR: [id number] [facility] [address] [facility] [place], [place] [address] [id number] I MR#: [id number] Acc #: [id number] NAME: KINA LAUGHLIN : 1945 SEX: M STUDY DATE/TIME: 09/09/2016 14:45 UNIT: [facility] ROOM: [facility] STUDY DESCRIPTION: CR Abdomen Single AP View Attending Physician: Rolando Dawkins M.D. Ordering Physician: Rolando Dawkins M.D. MEDICAL IMAGING REPORT This report is preliminary unless electronic signature is present EXAM Portable abdomen 09/09/2016 HISTORY Feeding difficulty post invasive procedure Dobbhoff tube placement. FINDINGS The tip of the Dobbhoff tube is in the region of the distal stomach. Dictated by... Rolf Noe M.D. THIS IS AN ELECTRONICALLY VERIFIED REPORT Rolf Noe M.D. at 09/10/2016 10:35 AM SCOOBY/leo TD: 09/09/2016 19:22 JOB #: [id number] MEDICAL IMAGING REPORT Page 1 of 1 COPY
--- NOTE | ~2016-08-24 | CO ---
Unit #: [id number] #: [id number] Patient: KINA LEON [id number] [facility] [address] [place], [place] [address] [id number] I MR#: [id number] NAME: KINA LEON ROOM: CICCU2 Age: 71 Sex: M Admission Date: 08/24/2016 : 1945 Attending Physician: Rolando Dawkins M.D. Primary Care Physician: Primary Care Physician No Consultation Date: 09/18/2016 CONSULTATION REPORT DISCUSSION Mr. Kina Leon is a 71-year-old male, seen in room 2, CCU 2 on 09/18/2016 at [facility]. The patient was awake and alert. The patient's brother was at the bedside. The patient dressed in hospital attire, reported in pain. Mood was irritable. The patient compliant with medication, but no agitation. Still gets mad, angry, upset easily. The patient's vital signs; pulse 97, respirations 28, blood pressure 117/79, oxygen saturation 97%. The patient denied any current suicidal or homicidal ideation. Denied any psychotic symptom, but somewhat paranoid, irritable, somewhat confused, and poor memory. REVIEW OF SYSTEMS Complete review of systems are unremarkable. MENTAL STATUS EXAMINATION Vital signs; please see above. General appearance; the patient dressed in hospital attire. The patient had 2 chest tubes, lying in a propped up position. Mood and affect, sad, dysphoric, irritable. Attention span and concentration, fair. Speech, somewhat circumstantial. Orientation in place and person. Mood and affect, labile. Thought process, circumstantial. Thought content, guarded, paranoid, but denied any thoughts of harming self or others. Recent and remote memory, fair to slightly impaired. Language, fair. Fund of knowledge, fair. Insight and judgment, fair to slightly impaired. DIAGNOSES Psychiatric: Major neurocognitive disorder due to Alzheimer disease with behavior disturbances, F02.81. ASSESSMENT AND PLAN 1. Supportive psychotherapy and psychoeducation provided to the patient. 2. Educated about benefits and side effects of medication and course and prognosis of illness. The patient is currently on Zyprexa. If needed, consider adjusting the dosage further and also taking Desyrel. Please feel free to call if any questions, telephone #[phone]. Dictated by... Des Sequeira/elaine TD: 09/20/2016 03:23 JOB #: [id number] Unit #: [id number] #: [id number] Patient: KINA LEON CONSULTATION REPORT Page 1 of 1 X Maurilio Hickey MD X CONSULTATION REPORT
--- NOTE | ~2016-08-24 | CR7 ---
[facility] A Service of [facility] RADIOLOGY TEXT RESULTS PATIENT: KINA LAUGHLIN LOCATION: [facility] : [birth year] UNIT #: [id number] AGE: [address]: Rolando Dawkins MD SEX: M ORDER DR: [id number] [address] [place], [place] [address] [id number] I MR#: [id number] Acc #: [id number] NAME: KINA LAUGHLIN : 1945 SEX: M STUDY DATE/TIME: 09/07/2016 2:29 UNIT: [facility] ROOM: [facility] STUDY DESCRIPTION: CR Abdomen Single AP View Attending Physician: Rolando Dawkins M.D. Ordering Physician: Rolando Dawkins M.D. Primary Care Physician: Primary Care Physician No MEDICAL IMAGING REPORT This report is preliminary unless electronic signature is present EXAM Abdominal radiograph INDICATION Dobbhoff tube placement PROCEDURE Supine view of the chest and upper abdomen. COMPARISON 09/06/2016 FINDINGS Tip of the Dobbhoff tube is stable positioned at the fundus of the stomach. There is a right-sided chest tube in place with a small to moderate sized right pneumothorax. IMPRESSION 1. Dobbhoff tube is stable at the fundus of the stomach. Suggest more distal advancement. 2. Right-sided pneumothorax. Dictated by... Adama Gil M.D. THIS IS AN ELECTRONICALLY VERIFIED REPORT Adama Gil M.D. at 09/07/2016 9:57 PM NILDA/levi TD: 09/07/2016 09:51 JOB #: [id number] MEDICAL IMAGING REPORT [facility] A Service [facility] RADIOLOGY TEXT RESULTS PATIENT: KINA LAUGHLIN LOCATION: [facility] : 46 UNIT #: [id number] AGE: [address]: Rolando Dawkins MD SEX: M ORDER DR: Page 1 of 1 COPY
--- NOTE | ~2016-08-24 | CR72 ---
[facility] A Service of [facility] RADIOLOGY TEXT RESULTS PATIENT: KINA LAUGHLIN LOCATION: [facility] [address]-07 : [birth year] UNIT #: [id number] AGE: [address]: Rolando Dawkins MD SEX: M ORDER DR: [id number] [facility] [address] [place], [place] [address] [id number] E MR#: [id number] Acc #: [id number] NAME: KINA LAUGHLIN : 1945 SEX: M STUDY DATE/TIME: 08/24/2016 02:21 UNIT: [facility] ROOM: STUDY DESCRIPTION: CR Chest Single View Portable Attending Physician: Ruel Horvath D.O. Ordering Physician: Ruel Horvath D.O. Primary Care Physician: No Primary Care Physician MEDICAL IMAGING REPORT This report is preliminary unless electronic signature is present EXAM Portable chest 08/24 at 0221 hours INDICATIONS Shortness of air, weakness and wheezing that started today. FINDINGS AP portable chest is compared with 11/05/2014. There is a large right-side pneumothorax without definite midline shift. This will likely require a chest tube. No left-side pneumothorax is seen. The lungs appear emphysematous. Heart size normal. IMPRESSION Large right-side pneumothorax which will likely require a chest tube. No midline shift. There is underlying emphysema. ADDENDUM Findings have been discussed directly with Dr. Horvath in the emergency room at the time of this dictation. STAT * RESULT Dictated by... Jez Henao Jr., M.D. THIS IS AN ELECTRONICALLY VERIFIED REPORT Jez Henao Jr., M.D. at 08/24/2016 5:44 AM TIMOTEO/shirley TD: 08/24/2016 03:04 [facility] A Service of [facility] & [facility] RADIOLOGY TEXT RESULTS PATIENT: KINA LAUGHLIN LOCATION: [facility] [address]-70 : [birth year] UNIT #: [id number] AGE: [address]: Rolando Dawkins MD SEX: M ORDER DR: SUSAN #: [id number] MEDICAL IMAGING REPORT Page 1 of 1 COPY
--- NOTE | ~2016-08-24 | EKG ---
PATIENT: KINA LAUGHLIN UNIT #: [id number] Ventricular Rate: 105 BPM Atrial Rate: 105 BPM P-R Interval: 172 ms QRS Duration: 74 ms Q-T Interval: 338 ms QTC Calculation(Bezet): 446 ms P Ducor: 96 degrees Calculated R Ducor: -31 degrees Calculated T Ducor: 82 degrees Diagnosis Line: Sinus tachycardia Diagnosis Line: Right atrial enlargement Diagnosis Line: Left axis deviation Diagnosis Line: Pulmonary disease pattern Diagnosis Line: Inferior infarct , age undetermined Diagnosis Line: Abnormal ECG Diagnosis Line: Diagnosis Line: Confirmed by HARESH CASPER MD ([id number]) on Diagnosis Line: 08/26/2016 8:34:21 AM INTERPRETING MD: PENNIE ABAD
--- NOTE | ~2016-08-24 | CR72 ---
[facility] A Service of [facility] & [facility] RADIOLOGY TEXT RESULTS PATIENT: KINA LAUGHLIN LOCATION: [address]14 : [birth year] UNIT #: [id number] AGE: [address]: Rolando Dawkins MD SEX: M ORDER DR: [id number] [facility] [address] [place], [place] [address] [id number] I MR#: [id number] Acc #: [id number] NAME: KINA LAUGHLIN : 1945 SEX: M STUDY DATE/TIME: 09/11/2016 9:04 UNIT: [facility] ROOM: [facility] STUDY DESCRIPTION: CR Chest Single View Portable Attending Physician: Rolando Dawkins M.D. Ordering Physician: Raymundo Chaudhry M.D. Primary Care Physician: Primary Care Physician No MEDICAL IMAGING REPORT This report is preliminary unless electronic signature is present EXAM Portable chest x-ray HISTORY Increased size of pneumo. Evaluate right chest tube. Short or air. Decreased breath sounds. Evaluate right pneumothorax. COMPARISON 09/11/2016 FINDINGS Two AP radiographs of the chest are presented. A flexible feeding tube terminates at or immediately beyond the level of the gastroesophageal junction. For placement in fpt-oy-nfxiiv stomach it should be advanced 10.0-15.0 cm and reassessed radiographically. There is a right pleural drain in place. Heart mildly enlarged. Volume loss in the right hemithorax with mild ifof-xx-gaxxh cardiomediastinal shift. Moderate but decreased right pneumothorax. There are apical lateral and medial components. At the apex the pneumothorax currently measures about 3.0 cm in width, previously 3.3 cm. Superolaterally in the right thorax it measures about 1.0 cm in width, previously 3.6 cm. There is overall volume loss in the right lung. Bronchovascular crowding in the right lung. Some patchy and linear densities probably atelectatic in nature. Similar appearance on prior examination. The left lung is well inflated without acute pulmonary disease. No left pleural effusion or pneumothorax. Surgical clips in the right upper quadrant of abdomen probably from prior cholecystectomy. Dictated by... Kael Mercado M.D. THIS IS AN ELECTRONICALLY VERIFIED REPORT Kael Mercado M.D. at 09/12/2016 6:[address] [facility] A Service of [facility] RADIOLOGY TEXT RESULTS PATIENT: KINA LAUGHLIN LOCATION: CIC3 CICCU3-14 : 47 UNIT #: [id number] AGE: [address]: Rolando Dawkins MD SEX: M ORDER DR: ALYCIA/levi TD: 09/11/2016 15:13 JOB #: [id number] MEDICAL IMAGING REPORT Page 1 of 1 COPY
--- NOTE | ~2016-08-24 | CR72 ---
[facility] A Service of [facility] & [facility] RADIOLOGY TEXT RESULTS PATIENT: KINA LAUGHLIN LOCATION: [address]14 : [birth year] UNIT #: [id number] AGE: [address]: Rolando Dawkins MD SEX: M ORDER DR: [id number] [facility] [address] [place], [place] [address] [id number] I MR#: [id number] Acc #: [id number] NAME: KINA LAUGHLIN : 1945 SEX: M STUDY DATE/TIME: 09/09/2016 14:46 UNIT: [facility] ROOM: [facility] STUDY DESCRIPTION: CR Chest Single View Portable Attending Physician: Rolando Dawkins M.D. Ordering Physician: Rolando Dawkins M.D. Primary Care Physician: Primary Care Physician No MEDICAL IMAGING REPORT This report is preliminary unless electronic signature is present EXAM Portable chest, 09/09/2016 HISTORY Respiratory failure follow up infiltrates. Right pleural tube. Followup right apical pneumothorax. FINDINGS The cardiac and mediastinal structures are stable compared with 09/09/2016 at 05:43 a.m. Nasogastric tube remains in place with tip below the diaphragm not visualized. Right apical pneumothorax is not significantly changed with a right pleural tube in place. COPD. No pleural effusions. IMPRESSION No significant interval change compared with earlier today at 05:43 a.m. Dictated by... Rolf Noe M.D. THIS IS AN ELECTRONICALLY VERIFIED REPORT Rolf Noe M.D. at 09/10/2016 10:35 AM SCOOBY/tiffany TD: 09/09/2016 19:27 JOB #: [id number] MEDICAL IMAGING REPORT Page 1 of 1 COPY
--- NOTE | ~2016-08-24 | CR72 ---
[facility] A Service of [facility] & [facility] RADIOLOGY TEXT RESULTS PATIENT: KINA LAUGHLIN LOCATION: [facility] 312-01 : [birth year] UNIT #: [id number] AGE: [address]: Rolando Dawkins MD SEX: M ORDER DR: [id number] [facility] [address]. [place], [place] [address] [id number] I MR#: [id number] Acc #: [id number] NAME: KINA LAUGHLIN : 1945 SEX: M STUDY DATE/TIME: 08/25/2016 6:06 UNIT: A U ROOM: 312 STUDY DESCRIPTION: CR Chest Single View Portable Attending Physician: Rolando Dawkins M.D. Ordering Physician: Rolando Dawkins M.D. Primary Care Physician: Primary Care Physician No MEDICAL IMAGING REPORT This report is preliminary unless electronic signature is present EXAM Portable chest INDICATION Followup pneumothorax and chest tube. Compared with yesterday. FINDINGS The right chest tube remains in place. Small right basilar pneumothorax which has increased in size compared with yesterday. There may also be some increase in right chest wall subcutaneous air. Heart size stable. IMPRESSION Right chest tube remains in place. Small right basilar component pneumothorax has increased in size since yesterday. Dictated by... Nael Mcmanus M.D. THIS IS AN ELECTRONICALLY VERIFIED REPORT Nael Mcmanus M.D. at 08/26/2016 2:19 PM CHARMAINE/gabriele TD: 08/25/2016 22:21 JOB #: [id number] MEDICAL IMAGING REPORT Page 1 of 1 COPY
--- NOTE | ~2016-08-24 | DS ---
Unit #: [id number] #: [id number] Patient: KINA LAUGHLIN [id number] [address] [address] [id number] I MR#: [id number] NAME: KINA LAUGHLIN [facility] Age: 71 Sex: M Admission Date: 08/24/2016 : 1945 Discharge Date: 09/23/2016 Attending Physician: Rolando Dawkins M.D. Primary Care Physician: No Primary Care Physician DISCHARGE SUMMARY Please see chart for details as it has been thinned. DISCHARGE DIAGNOSES 1. End stage emphysema. 2. 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 3. Pneumonia, methicillin sensitive Staph aureus. 4. Hypokalemia, replaced. 5. Hypophosphatemia, replaced. 6. Mild anemia, stable. 7. Depression. 8. Anxiety disorder. 9. Delirium. CONSULTANTS 1. Dr. Han. dina. 2. Dr. Hickey. DISPOSITION Inpatient hospice. DISCHARGE MEDICATIONS As per national business director. DIET Currently Jevity 1.5 tube feeds, 50 mL/hour. He is felt to be high risk for silent aspiration. ACTIVITY He currently has a chest tube to water seal, placed on an HM device with stable mild basilar pneumothorax. Overall, chest has improved. DESCRIPTION OF HOSPITALIZATION Again, please see chart for full details. Was admitted through the emergency room with spontaneous pneumothorax. Chest tube was placed. He improved. He actually was doing very well. Both the family and myself saw him and felt he was doing well and then he had a sudden deterioration. Was transferred to the Intensive Care Unit, required mechanical ventilation, felt to have pneumonia. Sputum returned MSSA. Antibiotics were adjusted. He actually was extubated and was stable pulmonary emmanuel. He did require two chest tubes at one point in time but, over time, they were able to remove one chest tube. He had a persistent air leak. Other problems included agitation and Dr. Hickey was consulted. It was felt that he likely had some underlying dementia that was unrecognized Unit #: [id number] #: [id number] Patient: KINA LAUGHLIN prior to this hospitalization coupled with his depression. With medications under Dr. Hickey's guidance, he actually improved. On the day of discharge, he was calm and alert. Long discussions were had with patient and family. Ultimately, it was decided that he be transferred to inpatient hospice. He does remain DNR status. On the day of discharge, I discussed the case with the nurse, patient and family and they had no questions. Dictated by... Bryant Wyatt M.D. ACE/ezequiel TD: 09/24/2016 07:48 JOB #: [id number] DISCHARGE SUMMARY Page 1 of 1 X Bryant Wyatt MD X DISCHARGE SUMMARY
--- NOTE | ~2016-08-24 | CR7 ---
[facility] A Service of [facility] & [facility] RADIOLOGY TEXT RESULTS PATIENT: KINA LAUGHLIN LOCATION: [address] : [birth year] UNIT #: [id number] AGE: [address]: Rolando Dawkins MD SEX: M ORDER DR: [id number] [facility] [address] [facility] [address] [place], [place] [address] [id number] I MR#: [id number] Acc #: [id number] NAME: KINA LAUGHLIN : 1945 SEX: M STUDY DATE/TIME: 09/18/2016 5:49 [facility] STUDY DESCRIPTION: CR Abdomen Single AP View Attending Physician: Rolando Dawkins M.D. Ordering Physician: Rolando Dawkins M.D. Primary Care Physician: Primary Care Physician No MEDICAL IMAGING REPORT This report is preliminary unless electronic signature is present EXAM Portable abdomen, 09/18/2016 HISTORY Dobbhoff tube placement today COMPARISON Abdomen, 09/17/2016 FINDINGS Frontal supine abdomen demonstrates a weighted enteric feeding tube with tip projecting over the proximal body of the stomach. Contrast noted in the bowel loops. Right-sided pneumothorax is unchanged. IMPRESSION Weighted enteric feeding tube noted with tip projecting over the proximal body of the stomach. Dictated by... Larry Waite M.D. THIS IS AN ELECTRONICALLY VERIFIED REPORT Larry Waite M.D. at 09/18/2016 3:23 PM Aziza TD: 09/18/2016 08:11 JOB #: [id number] MEDICAL IMAGING REPORT Page 1 of 1 COPY
--- NOTE | ~2016-08-24 | CR72 ---
[facility] A Service of [facility] & [facility] RADIOLOGY TEXT RESULTS PATIENT: KINA LAUGHLIN LOCATION: [facility] 312-01 : 46 UNIT #: [id number] AGE: [address]: Rolando Dawkins MD SEX: M ORDER DR: [id number] [facility] [address] [place], [place] [address] [id number] I MR#: [id number] Acc #: [id number] NAME: KINA LAUGHLIN : 1945 SEX: M STUDY DATE/TIME: 08/24/2016 03:23 UNIT: A U ROOM: [facility] STUDY DESCRIPTION: CR Chest Single View Portable Attending Physician: Rolando Dawkins M.D. Ordering Physician: Ruel Horvath D.O. Primary Care Physician: Primary Care Physician No MEDICAL IMAGING REPORT This report is preliminary unless electronic signature is present EXAM Portable chest 08/24/2016 03:23 INDICATION Chest tube placement tonight for pneumothorax. Prior abnormal chest x-ray. Shortness of air. FINDINGS AP portable chest is compared with earlier this morning. Right side chest tube has been placed. There may be a tiny residual basilar pneumothorax on the right. There is no left-side pneumothorax. There are bullous changes at the left apex. Dictated by... Jez Henao Jr., M.D. THIS IS AN ELECTRONICALLY VERIFIED REPORT Jez Henao Jr., M.D. at 08/24/2016 9:14 PM TIMOTEO/lulu TD: 08/24/2016 11:21 JOB #: [id number] MEDICAL IMAGING REPORT Page 1 of 1 COPY
--- NOTE | ~2016-08-24 | CR72 ---
[facility] A Service of [facility] RADIOLOGY TEXT RESULTS PATIENT: KINA LAUGHLIN LOCATION: [address]14 : [birth year] UNIT #: [id number] AGE: [address]: Rolando Dawkins MD SEX: M ORDER DR: [id number] [facility] [address] [facility]. [place], [place] [address] [id number] I MR#: [id number] Acc #: [id number] NAME: KINA LAUGHLIN : 1945 SEX: M STUDY DATE/TIME: 09/07/2016 2:28 UNIT: [facility] ROOM: [facility] STUDY DESCRIPTION: CR Chest Single View Portable Attending Physician: Rolando Dawkins M.D. Ordering Physician: Raymundo Chaudhry M.D. Primary Care Physician: Primary Care Physician No MEDICAL IMAGING REPORT This report is preliminary unless electronic signature is present EXAM Portable chest INDICATION Pneumothorax. Followup. PROCEDURE Frontal view chest COMPARISON 09/06/2016 FINDINGS Heart size stable. Right-sided chest tube unchanged. Right-sided pneumothorax stable to minimally increased. IMPRESSION Right-sided pneumothorax is stable to minimally increased. Right-sided chest tube is unchanged. Dictated by... Adama Gil M.D. THIS IS AN ELECTRONICALLY VERIFIED REPORT Adama Gil M.D. at 09/07/2016 9:57 PM NILDA/levi TD: 09/07/2016 09:55 JOB #: [id number] MEDICAL IMAGING REPORT Page 1 of 1 COPY
--- NOTE | ~2016-08-24 | CR71 ---
[facility] A Service of [facility] RADIOLOGY TEXT RESULTS PATIENT: KINA LAUGHLIN LOCATION: [facility] : 46 UNIT #: [id number] AGE: [address]: Rolando Dawkins MD SEX: M ORDER DR: [id number] [facility] [address]. [place], [place] [address] [id number] I MR#: [id number] Acc #: [id number] NAME: KINA LAUGHLIN : 1945 SEX: M STUDY DATE/TIME: 09/01/2016 11:40 UNIT: [facility] ROOM: [facility] STUDY DESCRIPTION: CR Chest Single View Attending Physician: Rolando Dawkins M.D. Ordering Physician: Raymundo Chaudhry M.D. Primary Care Physician: No Primary Care Physician MEDICAL IMAGING REPORT This report is preliminary unless electronic signature is present EXAM Portable chest, 09/01/2016. HISTORY 71-year-old male with shortness of air today. Right-sided pneumothorax. COMPARISON Chest 09/01/2016 at 0736 hours. FINDINGS Frontal chest at 1140 hours demonstrates all tubes and lines in stable position. There is a persistent small to moderate right-sided pneumothorax which is not significantly changed from the exam performed earlier the same date. Heart size and mediastinum are stable. Extensive subcutaneous emphysema. Right basilar infiltrate unchanged. IMPRESSION No significant change in small to moderate right pneumothorax from the exam from earlier the same date. Right chest tube stable. All other tubes and lines are stable. Dictated by... Larry Waite M.D. THIS IS AN ELECTRONICALLY VERIFIED REPORT Larry Waite M.D. at 09/02/2016 8:56 AM JENNY/jenny TD: 09/01/2016 12:43 JOB #: [id number] [facility] A Service of [facility] / [facility] RADIOLOGY TEXT RESULTS PATIENT: KINA LAUGHLIN LOCATION: [facility] : 46 UNIT #: [id number] AGE: [address]: Rolando Dawkins MD SEX: M ORDER DR: MEDICAL IMAGING REPORT Page 1 of 1 COPY
--- NOTE | ~2016-08-24 | CR72 ---
[facility] A Service of [facility] & [facility] RADIOLOGY TEXT RESULTS PATIENT: KINA LAUGHLIN LOCATION: [facility] 312-01 : [birth year] UNIT #: [id number] AGE: [address]: Rolando Dawkins MD SEX: M ORDER DR: [id number] [facility] [address] [place], [place] [address] [id number] I MR#: [id number] Acc #: [id number] NAME: KINA LAUGHLIN : 1945 SEX: M STUDY DATE/TIME: 08/26/2016 13:30 UNIT: A U ROOM: 312 STUDY DESCRIPTION: CR Chest Single View Portable Attending Physician: Rolando Dawkins M.D. Ordering Physician: Rolando Dawkins M.D. Primary Care Physician: Primary Care Physician No MEDICAL IMAGING REPORT This report is preliminary unless electronic signature is present EXAM Portable chest, 08/26/2016 COMPARISON Same date HISTORY Followup chest tube positioning, shortness of breath. FINDINGS An AP view is obtained. Right-sided chest tube is in place with the tip over the apex of the lung. Continues to be a predominately basilar pneumothorax. It has increased slightly. There is an increase in subcutaneous emphysema. Left lung remains clear. Heart size is normal. CONCLUSION 1. The right-sided chest tube appears in good position however the basilar pneumothorax has increased and there is a little more subcutaneous emphysema than on the last study. 2. COPD. Dictated by... Kael Cosme M.D. THIS IS AN ELECTRONICALLY VERIFIED REPORT Kael Cosme M.D. at 08/27/2016 7:27 AM Nirmal TD: 08/26/2016 16:29 JOB #: [id number] MEDICAL IMAGING REPORT Page 1 of 1 COPY
--- NOTE | ~2016-08-24 | CO ---
Unit #: [id number] #: [id number] Patient: KINA LEON [id number] [id number] [facility]. [place], [place] [address] [id number] I MR#: [id number] NAME: KINA LEON ROOM: 312 Age: 71 Sex: M Admission Date: 08/24/2016 : 1945 Attending Physician: Rolando Dawkins M.D. Requesting Physician: Bryant Wyatt M.D. CONSULTATION REPORT REASON FOR CONSULTATION Chest tube management. HISTORY OF PRESENT ILLNESS Mr. Leon is a 71-year-old male who presented to [facility] on August 24, 2016, with complaint of sudden onset right anterior chest wall pain and shortness of air. On admission, he had a chest x-ray which revealed a right pneumothorax, and a chest tube was placed in the emergency room. On this a.m., the patient had the same symptoms with right chest wall pain, as well as shortness of air. Thoracic Surgery was called to the room to evaluate patient, and the chest tube was found to be disconnected from the tubing to the atrium. An adapter was applied and a new atrium was applied and the patient's symptoms have resolved. A followup chest x-ray showed a small basilar pneumothorax which was noted on earlier x-ray as well, and patient has a persistent air leak. PAST MEDICAL HISTORY 1. Chronic obstructive pulmonary disease. 2. Depression. 3. Chronic low back pain. 4. Tobacco abuse. PAST SURGICAL HISTORY None. MEDICATIONS Reviewed and remain in the chart. MEDICATION ALLERGIES None. SOCIAL HISTORY One and a half packs per day x50 year smoker. He denies any drugs or alcohol use. FAMILY HISTORY Chronic obstructive pulmonary disease. PHYSICAL EXAMINATION VITAL SIGNS: Temperature is 98.8, heart rate 87, respiratory rate 19, and blood pressure is 113/73. GENERAL: Mr. Leon is a well-groomed, thin, 71-year-old male, good historian regarding his own medical history, in mild distress during Unit #: [id number] #: [id number] Patient: KINA LEON interview related to chest tube. Once the chest tube is connected properly, then patient is able to speak without being breathless. NEUROLOGIC: Patient is intact with no focal neurologic deficits. Cranial nerves II-XII are intact. HEENT: Normocephalic. No facial asymmetry. Sclerae are anicteric. LUNGS: Decreased in the bases with crackles noted. He has subcutaneous emphysema on the right anterior chest wall. CARDIOVASCULAR: S1 and S2 without rub and without murmur. No S3 or 4 and no peripheral edema. MUSCULOSKELETAL: He has some muscle wasting noted on his lower extremities. The patient's family tells me that he ambulates at home with a walker for short distances only. ABDOMEN: Round and soft. Bowel sounds positive. Nontender. No pulsatile masses or hepatosplenomegaly. EXTREMITIES: Warm and dry with no clubbing and no cyanosis. DIAGNOSTIC STUDIES LABORATORY: BUN 30, creatinine 1.1, sodium 142, and potassium 4.1. Hemoglobin 14.6, hematocrit 44.9, platelets 258,000, and WBC is 8.5. IMAGING: Chest x-rays are reviewed independently. IMPRESSION Spontaneous right pneumothorax status post chest tube placement in the emergency room on August 24, 2016. PLAN We will do a noncontrast CT of the chest to see if we can discern the evidence of bullous emphysema in regards to his persistent air leak. Dictated by... Alka Hilton A.P.R.N. for Des George/gaye TD: 08/26/2016 18:59 JOB #: [id number] CONSULTATION REPORT Page 1 of 1 X Alka Hilton APRN X CONSULTATION REPORT
--- NOTE | ~2016-08-24 | CR72 ---
[facility] A Service of [facility] & [facility] RADIOLOGY TEXT RESULTS PATIENT: KINA LAUGHLIN LOCATION: [address] : [birth year] UNIT #: [id number] AGE: [address]: Rolando Dawkins MD SEX: M ORDER DR: [id number] [facility] [address] [facility]. [place], [place] [address] [id number] I MR#: [id number] Acc #: [id number] NAME: KINA LAUGHLIN : 1945 SEX: M STUDY DATE/TIME: 08/27/2016 17:46 UNIT: [facility] ROOM: [facility] STUDY DESCRIPTION: CR Chest Single View Portable Attending Physician: Rolando Dawkins M.D. Ordering Physician: Rolando Dawkins M.D. Primary Care Physician: No Primary Care Physician MEDICAL IMAGING REPORT This report is preliminary unless electronic signature is present EXAM Portable chest HISTORY Pneumothorax with chest tube placement. Shortness of breath onset today. TECHNIQUE Single view of the chest was obtained. FINDINGS Right-sided chest tube remains in place. There was a small pneumothorax at the right costophrenic angle on the previous examination earlier in the day, and this is no longer seen. Extensive subcutaneous emphysema is noted. The subcutaneous emphysema has spread from the right side of the chest wall to the left since the previous examination this morning. No definite left-sided pneumothorax is seen. IMPRESSION 1. Subcutaneous emphysema has worsened throughout the day involving the left chest wall now, as well. 2. Right-sided chest tube remains in place. The component of the pneumothorax at the right costophrenic angle is much smaller than on the previous examination and may be resolved completely. No new or enlarging pneumothorax is seen. STAT * RESULT Dictated by... Jez Clifford M.D. THIS IS AN ELECTRONICALLY VERIFIED REPORT Jez Clifford M.D. at 08/27/2016 10:17 PM [facility] A Service of [facility] & [facility] RADIOLOGY TEXT RESULTS PATIENT: KINA LAUGHLIN LOCATION: [facility]14 : [birth year] UNIT #: [id number] AGE: [address]: Rolando Dawkins MD SEX: M ORDER DR: Murray TD: 08/27/2016 18:23 JOB #: [id number] MEDICAL IMAGING REPORT Page 1 of 1 COPY
--- NOTE | ~2016-08-24 | CR72 ---
[facility] A Service of [facility] RADIOLOGY TEXT RESULTS PATIENT: KINA LAUGHLIN LOCATION: [address]16 : [birth year] UNIT #: [id number] AGE: [address]: Rolando Dawkins MD SEX: M ORDER DR: [id number] [facility] [address] [facility] [address] [facility]. [place], [place] [address] [id number] I MR#: [id number] Acc #: [id number] NAME: KINA LAUGHLIN : 1945 SEX: M STUDY DATE/TIME: 09/20/2016729 UNIT: [facility] ROOM: [facility] STUDY DESCRIPTION: CR Chest Single View Portable Attending Physician: Rolando Dawkins M.D. Ordering Physician: Moe Dial M.D. MEDICAL IMAGING REPORT This report is preliminary unless electronic signature is present REVISED REPORT EXAM Portable chest 09/20/2016 at 07:30hr HISTORY Right pneothorax today. F/U chest tube placement. FINDINGS Portable upright chest demonstrates stable right chest tube with tip in right mid hemithorax. There is persistent large right pneumothorax which has decreased in size from the earlier film today. There is no suggestion of tension currently. There is atelectasis at the right base. IMPRESSION 1. Right chest tube with tip in the mid right hemithorax with slight decrease in the large right pneumothorax. There is no evidence of tension at this time which suggests an improvement from earlier today. 2. No change in the left hemithorax. STAT * RESULT *ACCESSION NUMBER MODIFIED. Dictated by... Cintia Wiggins M.D. THIS IS AN ELECTRONICALLY VERIFIED REPORT Cintia Wiggins M.D. at 09/23/2016 9:07 AM Patricia [facility] A Service of [facility] & [facility] RADIOLOGY TEXT RESULTS PATIENT: KINA LAUGHLIN LOCATION: [facility]- : [birth year] UNIT #: [id number] AGE: [address]: Rolando Dawkins MD SEX: M ORDER DR: TD: 09/20/2016 11:02 JOB #: [id number] MEDICAL IMAGING REPORT Page 1 of 1 COPY
--- NOTE | ~2016-08-24 | CR72 ---
[facility] A Service of [facility] & [facility] RADIOLOGY TEXT RESULTS PATIENT: KINA LAUGHLIN LOCATION: [address]16 : [birth year] UNIT #: [id number] AGE: [address]: Rolando Dawkins MD SEX: M ORDER DR: [id number] [facility] [address]. [place], [place] [address] [id number] I MR#: [id number] Acc #: [id number] NAME: KINA LAUGHLIN : 1945 SEX: M STUDY DATE/TIME: 09/19/2016 6:11 UNIT: [facility] ROOM: [facility] STUDY DESCRIPTION: CR Chest Single View Portable Attending Physician: Rolando Dawkins M.D. Ordering Physician: Bryant Wyatt M.D. Primary Care Physician: Primary Care Physician No MEDICAL IMAGING REPORT This report is preliminary unless electronic signature is present EXAM Portable chest radiograph INDICATION Shortness of breath and chest pain for 26 days. FINDINGS Comparison is made to a prior study from yesterday. Two right-sided chest tubes are again noted. Patient has persistent right-sided pneumothorax not significantly changed when compared to yesterday's study. Weighted enteric feeding tube is seen although I cannot see the distal tip. There is also a right-sided PICC line which extends into the superior vena cava. Cardiomediastinal silhouette is unchanged. Background emphysematous changes are present. No definite infiltrates are seen on the left. There is no pneumothorax or pleural effusion seen on the left. Dictated by... Eloisa Maciel M.D. THIS IS AN ELECTRONICALLY VERIFIED REPORT Eloisa Maciel M.D. at 09/19/2016 3:36 PM MARISA/lulu TD: 09/19/2016 06:50 JOB #: [id number] MEDICAL IMAGING REPORT Page 1 of 1 COPY
--- NOTE | ~2016-08-24 | CR6 ---
[facility] A Service of [facility] RADIOLOGY TEXT RESULTS PATIENT: KINA LAUGHLIN LOCATION: [facility] : 46 UNIT #: [id number] AGE: [address]: Rolando Dawkins MD SEX: M ORDER DR: [id number] [address] [facility]. [place], [place] [address] [id number] I MR#: [id number] Acc #: [id number] NAME: KINA LAUGHLIN : 1945 SEX: M STUDY DATE/TIME: 08/31/2016 15:22 UNIT: [facility] ROOM: [facility] STUDY DESCRIPTION: CR Abdomen Portable Sng View Attending Physician: Rolando Dawkins M.D. Ordering Physician: Bryant Wyatt M.D. Primary Care Physician: No Primary Care Physician MEDICAL IMAGING REPORT This report is preliminary unless electronic signature is present EXAM Frontal abdomen. DATE OF EXAM 08/31/2016 INDICATIONS Dobbhoff tube adjustment; frontal abdomen compared with 931 hours 08/30/2016. FINDINGS The enteric tube has been advanced slightly and the tip is now doubled upon the more proximal tubing at the level of the gastric fundus. Gallbladder surgically absent. There is degenerative change in scoliotic curvature of the lumbar spine. Subcutaneous emphysema present along with a right-sided chest tube. IMPRESSION 1. Enteric tube tip is at the level the gastric fundus. Dictated by... Tiago Castañeda M.D. THIS IS AN ELECTRONICALLY VERIFIED REPORT Tiago Castañeda M.D. at 08/31/2016 5:05 PM ONIEL/phillip TD: 08/31/2016 16:55 JOB #: [id number] MEDICAL IMAGING REPORT [facility] A Service [facility] RADIOLOGY TEXT RESULTS PATIENT: KINA LAUGHLIN LOCATION: [facility] : 47 UNIT #: [id number] AGE: [address]: Rolando Dawkins MD SEX: M ORDER DR: Page 1 of 1 COPY
[2016-08-24 02:32] LABS: BASOPHIL# 0.1 X10e3 (0-0.3); BASOPHIL% 1.2 % (0-2.5); EOSINOPHIL# 0.6 X10e3 (0-0.7); EOSINOPHIL% 7.6 % (0.0-7.0); HEMATOCRIT 44.9 % (38.0-50.0); HEMOGLOBIN 14.6 gm/dL (13.0-16.0); LYMPHOCYTE# 3.6 X10e3 (1.0-3.5); LYMPHOCYTE% 42.6 % (17.0-45.0); MEAN CELL VOLUME 94.9 FL (83-96); MEAN CORPUSCULAR HEMOGLOBIN 30.9 PG (28-34); MEAN CORPUSCULAR HGB CONC 32.6 g/dL (30-36); MEAN PLATELET VOLUME 8.8 FL (6.5-11.5); MONOCYTE# 0.8 X10e3 (0-1.0); MONOCYTE% 9.9 % (3.0-12.0); NEUTROPHIL# 3.3 X10e3 (1.5-7.1); NEUTROPHIL% 38.7 % (40-75); PLATELET COUNT 258 X10e3 (140-420); RED BLOOD COUNT 4.73 X10e (3.90-5.60); RED CELL DISTRIBUTION WIDTH 13.6 % (11.0-15.5); WHITE BLOOD COUNT 8.5 X10e3 (4.0-10.5)
[2016-08-24 02:35] LABS: ARTERIAL BLD GAS O2 SATURATION 96.8 % (90.0-100.0); ARTERIAL BLOOD GAS CARBOXY HB 1.4 %sat (0.0-9.0); ARTERIAL BLOOD GAS HCO3 25.1 mmol/L; ARTERIAL BLOOD GAS PCO2 49.2 mmHg (35.0-45.0); ARTERIAL BLOOD GAS pH 7.317 (7.350-7.450)
[2016-08-24 02:35] LABS: DIFF IND NO
[2016-08-24 02:37] LABS: ARTERIAL BLOOD GAS ART SITE RIGHT BRACHIAL; ARTERIAL BLOOD GAS DELIVERY BIPAP 14/6; ARTERIAL DRAW? YES
[2016-08-24 02:38] LABS: POC - CKMB 2.8 ng/mL (0.0-7.9); POC - TROPONIN <0.05 ng/mL (<=0.05)
[2016-08-24 02:51] LABS: INR 1.1; PARTIAL THROMBOPLASTIN TIME 23.8 SECONDS (23.5-31.3); PROTHROMBIN TIME (PATIENT) 11.1 SECONDS (9.6-11.5)
[2016-08-24 02:54] LABS: ALBUMIN SERUM 4.3 g/dL (3.5-5.0); BILIRUBIN, DIRECT 0.1 mg/dL (0.0-0.2); BILIRUBIN,INDIRECT 0.3 mg/dL (0.0-0.9); BILIRUBIN,TOTAL 0.4 mg/dL (0.2-2.0); BUN/CREATININE RATIO 18.18; CREATININE SERUM 1.1 mg/dL (0.6-1.4); GLOM FILT RATE Estimated 67.7 mL/min (>60); POTASSIUM 4.1 mmol/L (3.5-5.1); PROTEIN TOTAL SERUM 7.1 g/dL (6.0-8.3)
[2016-08-24 05:56] LABS: POC - TROPONIN <0.05 ng/mL (<=0.05)
[2016-08-27 17:25] LABS: ARTERIAL BLD GAS O2 SATURATION 93.3 % (90.0-100.0); ARTERIAL BLOOD GAS CARBOXY HB 0.7 %sat (0.0-9.0); ARTERIAL BLOOD GAS MET HB 0.7 %sat (0.0-2.0); ARTERIAL BLOOD GAS PCO2 38.5 mmHg (35.0-45.0); ARTERIAL BLOOD GAS pH 7.455 (7.350-7.450)
[2016-08-27 17:26] LABS: ARTERIAL BLOOD GAS ALLEN TEST NORMAL; ARTERIAL BLOOD GAS ART SITE LEFT RADIAL; ARTERIAL BLOOD GAS DELIVERY NASAL CANNULA; ARTERIAL BLOOD GAS PO2 67.9 mmHg (80.0-100); ARTERIAL DRAW? YES
[2016-08-27 19:39] LABS: ARTERIAL BLD GAS O2 SATURATION 96.9 % (90.0-100.0); ARTERIAL BLOOD GAS ALLEN TEST NORMAL; ARTERIAL BLOOD GAS ART SITE LEFT RADIAL; ARTERIAL BLOOD GAS CARBOXY HB 0.5 %sat (0.0-9.0); ARTERIAL BLOOD GAS DELIVERY NON REBREATHER MASK; ARTERIAL BLOOD GAS HCO3 24.5 mmol/L; ARTERIAL BLOOD GAS MET HB 0.7 %sat (0.0-2.0); ARTERIAL BLOOD GAS PCO2 37.1 mmHg (35.0-45.0); ARTERIAL BLOOD GAS pH 7.428 (7.350-7.450); ARTERIAL DRAW? YES
[2016-08-28 00:24] LABS: ARTERIAL BLOOD GAS CARBOXY HB 0.1 %sat (0.0-9.0); ARTERIAL BLOOD GAS HCO3 25.6 mmol/L; ARTERIAL BLOOD GAS MET HB 0.7 %sat (0.0-2.0); ARTERIAL BLOOD GAS PCO2 41.8 mmHg (35.0-45.0); ARTERIAL BLOOD GAS pH 7.395 (7.350-7.450)
[2016-08-28 00:25] LABS: ARTERIAL BLOOD GAS ALLEN TEST NORMAL; ARTERIAL BLOOD GAS ART SITE RIGHT RADIAL; ARTERIAL BLOOD GAS DELIVERY VENT; ARTERIAL BLOOD GAS VENT MODE AC; ARTERIAL DRAW? YES
[2016-08-28 04:07] LABS: HEMATOCRIT 39.4 % (38.0-50.0); HEMOGLOBIN 13.1 gm/dL (13.0-16.0); MEAN CELL VOLUME 92.8 FL (83-96); MEAN CORPUSCULAR HEMOGLOBIN 30.7 PG (28-34); MEAN CORPUSCULAR HGB CONC 33.1 g/dL (30-36); MEAN PLATELET VOLUME 9.2 FL (6.5-11.5); RED BLOOD COUNT 4.25 X10e (3.90-5.60); RED CELL DISTRIBUTION WIDTH 13.3 % (11.0-15.5); WHITE BLOOD COUNT 13.9 X10e3 (4.0-10.5)
[2016-08-28 04:25] LABS: BUN/CREATININE RATIO 27.77; CALCIUM SERUM 8.6 mg/dL (8.4-10.2); CREATININE SERUM 0.9 mg/dL (0.6-1.4); GLOM FILT RATE Estimated 86.2 mL/min (>60); POTASSIUM 3.9 mmol/L (3.5-5.1)
[2016-08-28 05:36] LABS: ARTERIAL BLD GAS O2 SATURATION 98.2 % (90.0-100.0); ARTERIAL BLOOD GAS CARBOXY HB 0.2 %sat (0.0-9.0); ARTERIAL BLOOD GAS HCO3 26.4 mmol/L; ARTERIAL BLOOD GAS MET HB 0.8 %sat (0.0-2.0); ARTERIAL BLOOD GAS PCO2 41.9 mmHg (35.0-45.0); ARTERIAL BLOOD GAS pH 7.408 (7.350-7.450)
[2016-08-28 05:38] LABS: ARTERIAL BLOOD GAS ALLEN TEST NORMAL; ARTERIAL BLOOD GAS ART SITE RIGHT RADIAL; ARTERIAL BLOOD GAS DELIVERY VENT; ARTERIAL BLOOD GAS VENT MODE AC; ARTERIAL DRAW? YES
[2016-08-29 04:56] LABS: ARTERIAL BLD GAS O2 SATURATION 97.5 % (90.0-100.0); ARTERIAL BLOOD GAS CARBOXY HB 0.4 %sat (0.0-9.0); ARTERIAL BLOOD GAS HCO3 29.6 mmol/L; ARTERIAL BLOOD GAS MET HB 0.8 %sat (0.0-2.0); ARTERIAL BLOOD GAS PCO2 46.2 mmHg (35.0-45.0); ARTERIAL BLOOD GAS pH 7.415 (7.350-7.450)
[2016-08-29 04:58] LABS: ARTERIAL BLOOD GAS ALLEN TEST NORMAL; ARTERIAL BLOOD GAS ART SITE RIGHT RADIAL; ARTERIAL BLOOD GAS DELIVERY VENT; ARTERIAL BLOOD GAS VENT MODE AC; ARTERIAL DRAW? YES
[2016-08-29 05:43] LABS: BASOPHIL% 0.2 % (0-2.5); EOSINOPHIL# 0.5 X10e3 (0-0.7); EOSINOPHIL% 3.5 % (0.0-7.0); HEMATOCRIT 33.9 % (38.0-50.0); HEMOGLOBIN 11.3 gm/dL (13.0-16.0); LYMPHOCYTE# 0.8 X10e3 (1.0-3.5); LYMPHOCYTE% 5.8 % (17.0-45.0); MEAN CELL VOLUME 94.3 FL (83-96); MEAN CORPUSCULAR HEMOGLOBIN 31.4 PG (28-34); MEAN CORPUSCULAR HGB CONC 33.4 g/dL (30-36); MEAN PLATELET VOLUME 9.4 FL (6.5-11.5); MONOCYTE% 7.6 % (3.0-12.0); NEUTROPHIL# 10.9 X10e3 (1.5-7.1); NEUTROPHIL% 82.9 % (40-75); PLATELET COUNT 190 X10e3 (140-420); RED BLOOD COUNT 3.59 X10e (3.90-5.60); RED CELL DISTRIBUTION WIDTH 13.6 % (11.0-15.5); WHITE BLOOD COUNT 13.1 X10e3 (4.0-10.5)
[2016-08-29 05:50] LABS: DIFF IND NO
[2016-08-29 07:01] LABS: CALCIUM SERUM 8.1 mg/dL (8.4-10.2); CREATININE SERUM 0.6 mg/dL (0.6-1.4); GLOM FILT RATE Estimated 101.9 mL/min (>60); MAGNESIUM 2.2 mg/dL (1.6-3.0); PHOSPHOROUS 1.9 mg/dL (2.5-4.6); POTASSIUM 3.6 mmol/L (3.5-5.1)
[2016-08-30 04:18] LABS: ARTERIAL BLD GAS O2 SATURATION 95.8 % (90.0-100.0); ARTERIAL BLOOD GAS CARBOXY HB 0.3 %sat (0.0-9.0); ARTERIAL BLOOD GAS HCO3 27.8 mmol/L; ARTERIAL BLOOD GAS MET HB 0.8 %sat (0.0-2.0); ARTERIAL BLOOD GAS PCO2 46.1 mmHg (35.0-45.0); ARTERIAL BLOOD GAS PO2 80.5 mmHg (80.0-100); ARTERIAL BLOOD GAS pH 7.389 (7.350-7.450)
[2016-08-30 04:21] LABS: BASOPHIL% 0.5 % (0-2.5); DIFF IND NO; EOSINOPHIL# 0.6 X10e3 (0-0.7); EOSINOPHIL% 6.6 % (0.0-7.0); HEMATOCRIT 30.9 % (38.0-50.0); HEMOGLOBIN 10.2 gm/dL (13.0-16.0); LYMPHOCYTE# 0.9 X10e3 (1.0-3.5); LYMPHOCYTE% 9.9 % (17.0-45.0); MEAN CELL VOLUME 96.3 FL (83-96); MEAN CORPUSCULAR HEMOGLOBIN 31.9 PG (28-34); MEAN CORPUSCULAR HGB CONC 33.1 g/dL (30-36); MEAN PLATELET VOLUME 9.6 FL (6.5-11.5); NEUTROPHIL# 6.7 X10e3 (1.5-7.1); PLATELET COUNT 178 X10e3 (140-420); RED BLOOD COUNT 3.21 X10e (3.90-5.60); RED CELL DISTRIBUTION WIDTH 13.6 % (11.0-15.5); WHITE BLOOD COUNT 9.2 X10e3 (4.0-10.5)
[2016-08-30 04:25] LABS: ARTERIAL BLOOD GAS ALLEN TEST NORMAL; ARTERIAL BLOOD GAS ART SITE RIGHT RADIAL; ARTERIAL BLOOD GAS DELIVERY VENT; ARTERIAL BLOOD GAS VENT MODE AC; ARTERIAL DRAW? YES
[2016-08-30 04:49] LABS: CALCIUM SERUM 7.5 mg/dL (8.4-10.2); CREATININE SERUM 0.8 mg/dL (0.6-1.4); GLOM FILT RATE Estimated 90.5 mL/min (>60); PHOSPHOROUS 2.4 mg/dL (2.5-4.6); POTASSIUM 3.6 mmol/L (3.5-5.1)
[2016-08-31 04:16] LABS: ARTERIAL BLD GAS O2 SATURATION 95.9 % (90.0-100.0); ARTERIAL BLOOD GAS CARBOXY HB 0.3 %sat (0.0-9.0); ARTERIAL BLOOD GAS MET HB 0.7 %sat (0.0-2.0); ARTERIAL BLOOD GAS pH 7.466 (7.350-7.450)
[2016-08-31 04:18] LABS: ARTERIAL BLOOD GAS ALLEN TEST NORMAL; ARTERIAL BLOOD GAS ART SITE RIGHT RADIAL; ARTERIAL BLOOD GAS DELIVERY VENT; ARTERIAL BLOOD GAS PO2 73.7 mmHg (80.0-100); ARTERIAL BLOOD GAS VENT MODE A/C; ARTERIAL DRAW? YES
[2016-08-31 05:43] LABS: BASOPHIL% 0.3 % (0-2.5); EOSINOPHIL# 0.7 X10e3 (0-0.7); EOSINOPHIL% 5.8 % (0.0-7.0); HEMATOCRIT 35.6 % (38.0-50.0); HEMOGLOBIN 11.4 gm/dL (13.0-16.0); LYMPHOCYTE# 0.7 X10e3 (1.0-3.5); LYMPHOCYTE% 6.3 % (17.0-45.0); MEAN CELL VOLUME 96.4 FL (83-96); MEAN CORPUSCULAR HGB CONC 32.2 g/dL (30-36); MEAN PLATELET VOLUME 9.5 FL (6.5-11.5); MONOCYTE# 1.3 X10e3 (0-1.0); NEUTROPHIL% 76.6 % (40-75); PLATELET COUNT 210 X10e3 (140-420); RED BLOOD COUNT 3.69 X10e (3.90-5.60); RED CELL DISTRIBUTION WIDTH 13.6 % (11.0-15.5); WHITE BLOOD COUNT 11.7 X10e3 (4.0-10.5)
[2016-08-31 05:52] LABS: DIFF IND NO
[2016-08-31 06:18] LABS: BUN/CREATININE RATIO 14.44; CALCIUM SERUM 7.6 mg/dL (8.4-10.2); CREATININE SERUM 0.9 mg/dL (0.6-1.4); GLOM FILT RATE Estimated 86.2 mL/min (>60); POTASSIUM 3.9 mmol/L (3.5-5.1)
[2016-09-01 03:53] LABS: ARTERIAL BLD GAS O2 SATURATION 94.7 % (90.0-100.0); ARTERIAL BLOOD GAS CARBOXY HB 0.4 %sat (0.0-9.0); ARTERIAL BLOOD GAS HCO3 29.8 mmol/L; ARTERIAL BLOOD GAS MET HB 0.7 %sat (0.0-2.0); ARTERIAL BLOOD GAS PCO2 42.4 mmHg (35.0-45.0); ARTERIAL BLOOD GAS pH 7.456 (7.350-7.450)
[2016-09-01 04:03] LABS: ARTERIAL BLOOD GAS ALLEN TEST NORMAL; ARTERIAL BLOOD GAS ART SITE RIGHT RADIAL; ARTERIAL BLOOD GAS DELIVERY VENT; ARTERIAL BLOOD GAS PO2 66.3 mmHg (80.0-100); ARTERIAL BLOOD GAS VENT MODE A/C; ARTERIAL DRAW? YES
[2016-09-01 04:31] LABS: BASOPHIL% 0.4 % (0-2.5); EOSINOPHIL# 0.8 X10e3 (0-0.7); HEMATOCRIT 33.9 % (38.0-50.0); HEMOGLOBIN 11.1 gm/dL (13.0-16.0); LYMPHOCYTE# 0.9 X10e3 (1.0-3.5); LYMPHOCYTE% 8.7 % (17.0-45.0); MEAN CORPUSCULAR HEMOGLOBIN 31.1 PG (28-34); MEAN CORPUSCULAR HGB CONC 32.8 g/dL (30-36); MEAN PLATELET VOLUME 10.1 FL (6.5-11.5); MONOCYTE# 1.1 X10e3 (0-1.0); MONOCYTE% 11.2 % (3.0-12.0); NEUTROPHIL# 7.1 X10e3 (1.5-7.1); NEUTROPHIL% 71.7 % (40-75); PLATELET COUNT 206 X10e3 (140-420); RED BLOOD COUNT 3.57 X10e (3.90-5.60); RED CELL DISTRIBUTION WIDTH 13.7 % (11.0-15.5); WHITE BLOOD COUNT 9.8 X10e3 (4.0-10.5)
[2016-09-01 04:39] LABS: DIFF IND NO
[2016-09-01 04:56] LABS: ALBUMIN SERUM 2.1 g/dL (3.5-5.0); BILIRUBIN,TOTAL 0.2 mg/dL (0.2-2.0); CALCIUM SERUM 7.5 mg/dL (8.4-10.2); CREATININE SERUM 0.8 mg/dL (0.6-1.4); GLOM FILT RATE Estimated 90.5 mL/min (>60); POTASSIUM 3.9 mmol/L (3.5-5.1); PROTEIN TOTAL SERUM 4.5 g/dL (6.0-8.3)
[2016-09-01 15:48] LABS: URINE APPEARANCE CLEAR; URINE BILIRUBIN NEG (NEG); URINE BLOOD NEG (NEG); URINE COLOR YELLOW; URINE GLUCOSE NEG (NEG); URINE KETONE NEG (NEG); URINE LEUKOCYTE ESTERASE NEG (NEG); URINE NITRATE NEG (NEG); URINE PROTEIN NEG (NEG); URINE SPECIFIC GRAVITY 1.016 (1.003-1.035)
[2016-09-01 15:53] LABS: CULTURE INDICATED? NO
[2016-09-02 03:49] LABS: ARTERIAL BLD GAS O2 SATURATION 95.6 % (90.0-100.0); ARTERIAL BLOOD GAS CARBOXY HB 0.3 %sat (0.0-9.0); ARTERIAL BLOOD GAS MET HB 0.7 %sat (0.0-2.0); ARTERIAL BLOOD GAS PCO2 49.2 mmHg (35.0-45.0); ARTERIAL BLOOD GAS pH 7.407 (7.350-7.450)
[2016-09-02 04:02] LABS: ARTERIAL BLOOD GAS ALLEN TEST NORMAL; ARTERIAL BLOOD GAS ART SITE RIGHT RADIAL; ARTERIAL BLOOD GAS PO2 77.9 mmHg (80.0-100); ARTERIAL DRAW? YES
[2016-09-02 04:03] LABS: ARTERIAL BLOOD GAS DELIVERY VENT; ARTERIAL BLOOD GAS VENT MODE A/C
[2016-09-03 04:50] LABS: ARTERIAL BLD GAS O2 SATURATION 96.5 % (90.0-100.0); ARTERIAL BLOOD GAS CARBOXY HB 0.5 %sat (0.0-9.0); ARTERIAL BLOOD GAS HCO3 30.2 mmol/L; ARTERIAL BLOOD GAS MET HB 1.3 %sat (0.0-2.0); ARTERIAL BLOOD GAS PCO2 45.8 mmHg (35.0-45.0); ARTERIAL BLOOD GAS pH 7.428 (7.350-7.450)
[2016-09-03 05:09] LABS: BASOPHIL% 0.2 % (0-2.5); EOSINOPHIL# 0.1 X10e3 (0-0.7); EOSINOPHIL% 1.7 % (0.0-7.0); LYMPHOCYTE# 0.7 X10e3 (1.0-3.5); LYMPHOCYTE% 10.1 % (17.0-45.0); MEAN CELL VOLUME 95.1 FL (83-96); MEAN CORPUSCULAR HEMOGLOBIN 30.7 PG (28-34); MEAN CORPUSCULAR HGB CONC 32.3 g/dL (30-36); MEAN PLATELET VOLUME 8.2 FL (6.5-11.5); MONOCYTE# 0.6 X10e3 (0-1.0); MONOCYTE% 9.4 % (3.0-12.0); NEUTROPHIL# 5.3 X10e3 (1.5-7.1); NEUTROPHIL% 78.6 % (40-75); PLATELET COUNT 305 X10e3 (140-420); RED BLOOD COUNT 3.57 X10e (3.90-5.60); RED CELL DISTRIBUTION WIDTH 14.1 % (11.0-15.5); WHITE BLOOD COUNT 6.7 X10e3 (4.0-10.5)
[2016-09-03 05:10] LABS: ARTERIAL BLOOD GAS ALLEN TEST NORMAL; ARTERIAL BLOOD GAS ART SITE RIGHT RADIAL; ARTERIAL BLOOD GAS DELIVERY VENT; ARTERIAL BLOOD GAS VENT MODE AC; ARTERIAL DRAW? YES
[2016-09-03 05:13] LABS: DIFF IND NO
[2016-09-03 07:06] LABS: CALCIUM SERUM 8.1 mg/dL (8.4-10.2); CREATININE SERUM 0.8 mg/dL (0.6-1.4); GLOM FILT RATE Estimated 90.5 mL/min (>60); MAGNESIUM 2.6 mg/dL (1.6-3.0); POTASSIUM 4.1 mmol/L (3.5-5.1)
[2016-09-03 10:01] LABS: ARTERIAL BLD GAS O2 SATURATION 95.1 % (90.0-100.0); ARTERIAL BLOOD GAS CARBOXY HB 0.3 %sat (0.0-9.0); ARTERIAL BLOOD GAS HCO3 31.4 mmol/L; ARTERIAL BLOOD GAS MET HB 0.6 %sat (0.0-2.0); ARTERIAL BLOOD GAS PCO2 47.6 mmHg (35.0-45.0); ARTERIAL BLOOD GAS pH 7.427 (7.350-7.450)
[2016-09-03 10:02] LABS: ARTERIAL BLOOD GAS ART SITE RIGHT RADIAL; ARTERIAL BLOOD GAS DELIVERY VENT; ARTERIAL BLOOD GAS PO2 76.4 mmHg (80.0-100); ARTERIAL BLOOD GAS VENT MODE CPAP; ARTERIAL DRAW? YES
[2016-09-04 05:16] LABS: BASOPHIL% 0.4 % (0-2.5); EOSINOPHIL# 0.1 X10e3 (0-0.7); EOSINOPHIL% 0.7 % (0.0-7.0); HEMATOCRIT 34.5 % (38.0-50.0); HEMOGLOBIN 11.4 gm/dL (13.0-16.0); LYMPHOCYTE# 0.7 X10e3 (1.0-3.5); LYMPHOCYTE% 8.5 % (17.0-45.0); MEAN CELL VOLUME 95.3 FL (83-96); MEAN CORPUSCULAR HEMOGLOBIN 31.5 PG (28-34); MEAN CORPUSCULAR HGB CONC 33.1 g/dL (30-36); MEAN PLATELET VOLUME 8.2 FL (6.5-11.5); MONOCYTE# 0.6 X10e3 (0-1.0); MONOCYTE% 7.1 % (3.0-12.0); NEUTROPHIL% 83.3 % (40-75); PLATELET COUNT 345 X10e3 (140-420); RED BLOOD COUNT 3.62 X10e (3.90-5.60); RED CELL DISTRIBUTION WIDTH 13.8 % (11.0-15.5); WHITE BLOOD COUNT 8.4 X10e3 (4.0-10.5)
[2016-09-04 05:41] LABS: BUN/CREATININE RATIO 31.25; CALCIUM SERUM 8.3 mg/dL (8.4-10.2); CREATININE SERUM 0.8 mg/dL (0.6-1.4); GLOM FILT RATE Estimated 90.5 mL/min (>60); POTASSIUM 4.2 mmol/L (3.5-5.1)
[2016-09-04 05:45] LABS: DIFF IND NO
[2016-09-05 13:59] LABS: URINE APPEARANCE TURBID; URINE BILIRUBIN NEG (NEG); URINE BLOOD 2+ (NEG); URINE COLOR YELLOW; URINE GLUCOSE NEG (NEG); URINE KETONE NEG (NEG); URINE LEUKOCYTE ESTERASE NEG (NEG); URINE NITRATE NEG (NEG); URINE PROTEIN NEG (NEG); URINE SPECIFIC GRAVITY 1.017 (1.003-1.035); URINE UROBILINOGEN 0.2 MG/DL (NEG)
[2016-09-05 14:02] LABS: URBCS1 AUWI 50-100 /[HPF] (0-2); URINE BACTERIA AUWI NEG (NEGATIVE); URINE SQUAMOUS EPITHELIAL CELL OCC /[HPF]; UWBCS1 AUWI 0-2 (0-5)
[2016-09-05 14:10] LABS: CULTURE INDICATED? NO
[2016-09-07 04:45] LABS: BASOPHIL# 0.1 X10e3 (0-0.3); BASOPHIL% 0.5 % (0-2.5); EOSINOPHIL# 0.8 X10e3 (0-0.7); EOSINOPHIL% 5.5 % (0.0-7.0); HEMATOCRIT 36.1 % (38.0-50.0); HEMOGLOBIN 11.8 gm/dL (13.0-16.0); LYMPHOCYTE# 1.5 X10e3 (1.0-3.5); LYMPHOCYTE% 10.4 % (17.0-45.0); MEAN CELL VOLUME 93.5 FL (83-96); MEAN CORPUSCULAR HEMOGLOBIN 30.6 PG (28-34); MEAN CORPUSCULAR HGB CONC 32.7 g/dL (30-36); MONOCYTE# 1.1 X10e3 (0-1.0); MONOCYTE% 7.7 % (3.0-12.0); NEUTROPHIL# 11.3 X10e3 (1.5-7.1); NEUTROPHIL% 75.9 % (40-75); PLATELET COUNT 546 X10e3 (140-420); RED BLOOD COUNT 3.86 X10e (3.90-5.60); RED CELL DISTRIBUTION WIDTH 14.2 % (11.0-15.5); WHITE BLOOD COUNT 14.8 X10e3 (4.0-10.5)
[2016-09-07 04:46] LABS: DIFF IND NO
[2016-09-07 05:42] LABS: ALBUMIN SERUM 2.4 g/dL (3.5-5.0); BILIRUBIN,TOTAL 1.3 mg/dL (0.2-2.0); BUN/CREATININE RATIO 27.14; CALCIUM SERUM 8.5 mg/dL (8.4-10.2); CREATININE SERUM 0.7 mg/dL (0.6-1.4); GLOM FILT RATE Estimated 95.7 mL/min (>60); MAGNESIUM 2.5 mg/dL (1.6-3.0); PHOSPHOROUS 3.4 mg/dL (2.5-4.6); POTASSIUM 3.4 mmol/L (3.5-5.1); PROTEIN TOTAL SERUM 5.5 g/dL (6.0-8.3)
[2016-09-08 06:49] LABS: BUN/CREATININE RATIO 27.5; CALCIUM SERUM 8.4 mg/dL (8.4-10.2); CREATININE SERUM 0.8 mg/dL (0.6-1.4); GLOM FILT RATE Estimated 90.5 mL/min (>60)
[2016-09-09 06:06] LABS: BUN/CREATININE RATIO 31.42; CALCIUM SERUM 8.4 mg/dL (8.4-10.2); CREATININE SERUM 0.7 mg/dL (0.6-1.4); GLOM FILT RATE Estimated 95.7 mL/min (>60); POTASSIUM 3.8 mmol/L (3.5-5.1)
[2016-09-09 14:40] LABS: ARTERIAL BLD GAS O2 SATURATION 95.1 % (90.0-100.0); ARTERIAL BLOOD GAS CARBOXY HB 0.5 %sat (0.0-9.0); ARTERIAL BLOOD GAS HCO3 28.3 mmol/L; ARTERIAL BLOOD GAS MET HB 0.6 %sat (0.0-2.0); ARTERIAL BLOOD GAS PCO2 41.4 mmHg (35.0-45.0); ARTERIAL BLOOD GAS pH 7.442 (7.350-7.450)
[2016-09-09 14:41] LABS: ARTERIAL BLOOD GAS ART SITE RIGHT BRACHIAL; ARTERIAL BLOOD GAS DELIVERY NASAL CANNULA; ARTERIAL BLOOD GAS PO2 72.8 mmHg (80.0-100); ARTERIAL DRAW? YES
[2016-09-10 13:09] LABS: ARTERIAL BLD GAS O2 SATURATION 94.5 % (90.0-100.0); ARTERIAL BLOOD GAS CARBOXY HB 0.6 %sat (0.0-9.0); ARTERIAL BLOOD GAS HCO3 27.1 mmol/L; ARTERIAL BLOOD GAS MET HB 0.8 %sat (0.0-2.0); ARTERIAL BLOOD GAS pH 7.473 (7.350-7.450)
[2016-09-10 13:10] LABS: ARTERIAL BLOOD GAS ALLEN TEST NORMAL; ARTERIAL BLOOD GAS ART SITE RIGHT RADIAL; ARTERIAL BLOOD GAS DELIVERY NASAL CANNULA; ARTERIAL BLOOD GAS PO2 70.6 mmHg (80.0-100); ARTERIAL DRAW? YES
[2016-09-10 13:22] LABS: MAGNESIUM 2.3 mg/dL (1.6-3.0); POTASSIUM 3.9 mmol/L (3.5-5.1)
[2016-09-10 13:40] LABS: %MB 6.2 % (0.0-4.0); MB 3.8 ng/ml
[2016-09-13 05:33] LABS: BASOPHIL# 0.1 X10e3 (0-0.3); BASOPHIL% 0.6 % (0-2.5); EOSINOPHIL# 0.7 X10e3 (0-0.7); EOSINOPHIL% 5.5 % (0.0-7.0); HEMOGLOBIN 12.5 gm/dL (13.0-16.0); LYMPHOCYTE# 1.5 X10e3 (1.0-3.5); MEAN CELL VOLUME 96.3 FL (83-96); MEAN CORPUSCULAR HEMOGLOBIN 30.9 PG (28-34); MEAN PLATELET VOLUME 8.6 FL (6.5-11.5); MONOCYTE# 1.2 X10e3 (0-1.0); MONOCYTE% 8.9 % (3.0-12.0); PLATELET COUNT 614 X10e3 (140-420); RED BLOOD COUNT 4.05 X10e (3.90-5.60); RED CELL DISTRIBUTION WIDTH 15.1 % (11.0-15.5); WHITE BLOOD COUNT 13.5 X10e3 (4.0-10.5)
[2016-09-13 05:38] LABS: DIFF IND NO
[2016-09-13 06:28] LABS: BUN/CREATININE RATIO 23.75; CALCIUM SERUM 8.6 mg/dL (8.4-10.2); CREATININE SERUM 0.8 mg/dL (0.6-1.4); GLOM FILT RATE Estimated 90.5 mL/min (>60); MAGNESIUM 2.4 mg/dL (1.6-3.0); POTASSIUM 3.3 mmol/L (3.5-5.1)
[2016-09-14 05:35] LABS: BASOPHIL# 0.1 X10e3 (0-0.3); BASOPHIL% 0.8 % (0-2.5); EOSINOPHIL# 1.4 X10e3 (0-0.7); EOSINOPHIL% 12.8 % (0.0-7.0); HEMATOCRIT 35.5 % (38.0-50.0); HEMOGLOBIN 11.6 gm/dL (13.0-16.0); LYMPHOCYTE# 1.7 X10e3 (1.0-3.5); LYMPHOCYTE% 14.8 % (17.0-45.0); MEAN CELL VOLUME 95.4 FL (83-96); MEAN CORPUSCULAR HEMOGLOBIN 31.3 PG (28-34); MEAN CORPUSCULAR HGB CONC 32.8 g/dL (30-36); MEAN PLATELET VOLUME 8.2 FL (6.5-11.5); MONOCYTE# 0.9 X10e3 (0-1.0); MONOCYTE% 8.2 % (3.0-12.0); NEUTROPHIL# 7.2 X10e3 (1.5-7.1); NEUTROPHIL% 63.4 % (40-75); PLATELET COUNT 579 X10e3 (140-420); RED BLOOD COUNT 3.72 X10e (3.90-5.60); WHITE BLOOD COUNT 11.3 X10e3 (4.0-10.5)
[2016-09-14 06:10] LABS: CALCIUM SERUM 8.4 mg/dL (8.4-10.2); CREATININE SERUM 0.9 mg/dL (0.6-1.4); DIFF IND NO; GLOM FILT RATE Estimated 86.2 mL/min (>60); MAGNESIUM 2.5 mg/dL (1.6-3.0); PHOSPHOROUS 3.7 mg/dL (2.5-4.6); POTASSIUM 3.6 mmol/L (3.5-5.1)
[2016-09-15 07:53] LABS: BASOPHIL# 0.1 X10e3 (0-0.3); BASOPHIL% 0.8 % (0-2.5); EOSINOPHIL# 1.8 X10e3 (0-0.7); EOSINOPHIL% 14.6 % (0.0-7.0); HEMATOCRIT 38.6 % (38.0-50.0); HEMOGLOBIN 12.5 gm/dL (13.0-16.0); LYMPHOCYTE# 1.7 X10e3 (1.0-3.5); LYMPHOCYTE% 14.1 % (17.0-45.0); MEAN CELL VOLUME 96.5 FL (83-96); MEAN CORPUSCULAR HEMOGLOBIN 31.2 PG (28-34); MEAN CORPUSCULAR HGB CONC 32.4 g/dL (30-36); MEAN PLATELET VOLUME 8.6 FL (6.5-11.5); MONOCYTE# 1.2 X10e3 (0-1.0); MONOCYTE% 9.8 % (3.0-12.0); NEUTROPHIL# 7.3 X10e3 (1.5-7.1); NEUTROPHIL% 60.7 % (40-75); PLATELET COUNT 583 X10e3 (140-420); RED CELL DISTRIBUTION WIDTH 16.1 % (11.0-15.5); WHITE BLOOD COUNT 12.1 X10e3 (4.0-10.5)
[2016-09-15 07:57] LABS: DIFF IND NO
[2016-09-15 08:23] LABS: CALCIUM SERUM 8.7 mg/dL (8.4-10.2); GLOM FILT RATE Estimated 75.9 mL/min (>60); POTASSIUM 3.2 mmol/L (3.5-5.1)
[2016-09-16 05:53] LABS: BUN/CREATININE RATIO 17.77; CALCIUM SERUM 7.9 mg/dL (8.4-10.2); CREATININE SERUM 0.9 mg/dL (0.6-1.4); GLOM FILT RATE Estimated 86.2 mL/min (>60)
[2016-09-16 05:56] LABS: POTASSIUM 2.7 mmol/L (3.5-5.1)
[2016-09-17 06:35] LABS: ALBUMIN SERUM 2.1 g/dL (3.5-5.0); BILIRUBIN,TOTAL 1.7 mg/dL (0.2-2.0); BUN/CREATININE RATIO 18.75; CALCIUM SERUM 8.3 mg/dL (8.4-10.2); CREATININE SERUM 0.8 mg/dL (0.6-1.4); GLOM FILT RATE Estimated 90.5 mL/min (>60); MAGNESIUM 2.3 mg/dL (1.6-3.0); POTASSIUM 3.1 mmol/L (3.5-5.1); PROTEIN TOTAL SERUM 5.9 g/dL (6.0-8.3)
[2016-09-17 11:19] LABS: URINE APPEARANCE TURBID; URINE BILIRUBIN NEG (NEG); URINE BLOOD NEG (NEG); URINE COLOR YELLOW; URINE GLUCOSE NEG (NEG); URINE KETONE NEG (NEG); URINE LEUKOCYTE ESTERASE NEG (NEG); URINE NITRATE NEG (NEG); URINE PH 8.5 (5-8); URINE PROTEIN NEG (NEG); URINE SPECIFIC GRAVITY 1.013 (1.003-1.035); URINE UROBILINOGEN 0.2 MG/DL (NEG)
[2016-09-17 11:27] LABS: CULTURE INDICATED? NO
[2016-09-18 05:01] LABS: MAGNESIUM 2.3 mg/dL (1.6-3.0); POTASSIUM 3.5 mmol/L (3.5-5.1)
[2016-09-19 05:34] LABS: MAGNESIUM 2.2 mg/dL (1.6-3.0); POTASSIUM 3.7 mmol/L (3.5-5.1)
[2016-09-20 05:15] LABS: BASOPHIL# 0.1 X10e3 (0-0.3); BASOPHIL% 0.6 % (0-2.5); EOSINOPHIL# 1.2 X10e3 (0-0.7); EOSINOPHIL% 11.6 % (0.0-7.0); HEMATOCRIT 36.9 % (38.0-50.0); HEMOGLOBIN 12.3 gm/dL (13.0-16.0); LYMPHOCYTE# 1.8 X10e3 (1.0-3.5); LYMPHOCYTE% 17.9 % (17.0-45.0); MEAN CELL VOLUME 96.5 FL (83-96); MEAN CORPUSCULAR HEMOGLOBIN 32.1 PG (28-34); MEAN CORPUSCULAR HGB CONC 33.2 g/dL (30-36); MEAN PLATELET VOLUME 9.9 FL (6.5-11.5); MONOCYTE# 1.2 X10e3 (0-1.0); MONOCYTE% 12.2 % (3.0-12.0); NEUTROPHIL# 5.9 X10e3 (1.5-7.1); NEUTROPHIL% 57.7 % (40-75); PLATELET COUNT 326 X10e3 (140-420); RED BLOOD COUNT 3.83 X10e (3.90-5.60); RED CELL DISTRIBUTION WIDTH 16.1 % (11.0-15.5); WHITE BLOOD COUNT 10.2 X10e3 (4.0-10.5)
[2016-09-20 05:24] LABS: DIFF IND NO
[2016-09-20 05:37] LABS: ALBUMIN SERUM 2.4 g/dL (3.5-5.0); BILIRUBIN,TOTAL 1.8 mg/dL (0.2-2.0); CALCIUM SERUM 8.5 mg/dL (8.4-10.2); CREATININE SERUM 0.8 mg/dL (0.6-1.4); GLOM FILT RATE Estimated 90.5 mL/min (>60); MAGNESIUM 2.3 mg/dL (1.6-3.0); POTASSIUM 3.9 mmol/L (3.5-5.1); PROTEIN TOTAL SERUM 6.7 g/dL (6.0-8.3)
[2016-09-21 05:38] LABS: MAGNESIUM 2.5 mg/dL (1.6-3.0); POTASSIUM 4.2 mmol/L (3.5-5.1)
[2016-09-22 07:07] LABS: BUN/CREATININE RATIO 21.25; CALCIUM SERUM 8.9 mg/dL (8.4-10.2); CREATININE SERUM 0.8 mg/dL (0.6-1.4); GLOM FILT RATE Estimated 90.5 mL/min (>60); MAGNESIUM 2.5 mg/dL (1.6-3.0); POTASSIUM 4.1 mmol/L (3.5-5.1)
[2016-09-23 05:17] LABS: MAGNESIUM 2.2 mg/dL (1.6-3.0); POTASSIUM 3.7 mmol/L (3.5-5.1)
== END 2016-09-23 12:12 | DRG 207 ==
LOC: CED 02:11 → CICCU3 04:41 → C3A PCU 04:41 → CEDOF 04:41 → CED 05:04 → CEDOF 05:04 → C3A PCU 07:56 → CEDOF 07:56 → C3A PCU 07:56 → CICCU3 08-27 17:38 → CICCU2 09-17 18:12
PROVIDERS: Emergency Medicine; Family Medicine Sleep Medicine; Internal Medicine
PROC: 0W9930Z Drainage of Right Pleural Cavity with Drainage Device, Percutaneous Approach (ICD-10-PCS; principal; 2016-08-24)
PROC: 5A1955Z Respiratory Ventilation, Greater than 96 Consecutive Hours (ICD-10-PCS; 2016-08-27)
PROC: 0BH17EZ Insertion of Endotracheal Airway into Trachea, Via Natural or Artificial Opening (ICD-10-PCS; 2016-08-27)
PROC: 05H333Z Insertion of Infusion Device into Right Innominate Vein, Percutaneous Approach (ICD-10-PCS; 2016-08-27)
PROC: B54MZZA Ultrasonography of Right Upper Extremity Veins, Guidance (ICD-10-PCS; 2016-08-27)
PROC: 0W9930Z Drainage of Right Pleural Cavity with Drainage Device, Percutaneous Approach (ICD-10-PCS; 2016-09-11)
PROC: 02HV33Z Insertion of Infusion Device into Superior Vena Cava, Percutaneous Approach (ICD-10-PCS; 2016-09-14)
PROC: 4A02X4A Measurement of Cardiac Electrical Activity, Guidance, External Approach (ICD-10-PCS; 2016-09-14)
DX: J93.83 Other pneumothorax (principal); J86.0 Pyothorax with fistula; J15.211 Pneumonia due to Methicillin susceptible Staphylococcus aureus; J96.21 Acute and chronic respiratory failure with hypoxia; G92 Toxic encephalopathy; F33.2 Major depressive disorder, recurrent severe without psychotic features; G30.9 Alzheimer's disease, unspecified; F05 Delirium due to known physiological condition; R13.10 Dysphagia, unspecified; J44.1 Chronic obstructive pulmonary disease with (acute) exacerbation; F02.81 Dementia in other diseases classified elsewhere, unspecified severity, with behavioral disturbance; J44.0 Chronic obstructive pulmonary disease with (acute) lower respiratory infection; D64.9 Anemia, unspecified; F17.210 Nicotine dependence, cigarettes, uncomplicated; M54.5 Low back pain; G89.29 Other chronic pain; I10 Essential (primary) hypertension; F39 Unspecified mood [affective] disorder; F41.9 Anxiety disorder, unspecified; E87.6 Hypokalemia; E83.39 Other disorders of phosphorus metabolism; Z99.81 Dependence on supplemental oxygen; Z66 Do not resuscitate; Z51.5 Encounter for palliative care
CPT/HCPCS: 32551; 36415; 36600; 71010; 71250; 74000; 74230; 80048; 80053; 80076; 81003; 82550; 82553; 82803; 82947; 83605; 83735; 83880; 84100; 84132; 84484; 85025; 85027; 85610; 85730; 87040; 87070; 87077; 87086; 87088; 87186; 87205; 92526; 92610; 92611; 93005; 94002; 94003; 94640; 94644; 94660; 94664; 94760; 94761; 97110; 97112; 97163; 97166; 97167; 97530; 97535; 99285; G8978-GP; G8979-GP; G8987-GO; G8988-GO; G8996-GN; G8997-GN; G8998-GN; J0456; J0696; J1630; J1650; J2060; J2250; J2270; J2543; J2920; J2930; J2997; J3370; J3486